=== PATIENT | male | born 1975 | race Caucasian/White ===

== ENCOUNTER 2019-11-20 12:11 | Inpatient (IN) | payer MEDICAID ==
[2019-11-20] VITALS (11 sets, daily range): BP systolic 95–155; BP diastolic 52–110
[~2019-11-20] VITALS: Ht 188 cm; Wt 174.0 kg
--- NOTE | 2019-11-20 12:20 | NUR ---
0836: took Nurse:Nurse from HELEN Lott [place] r/t pending pt transfer for nephrology issues. pt arrived [place] via ems 2150 11/07/2019 c/o increased generalized weakness and diarrhea x24/hrs. Labs revealed potassium of 7.0 tx with kayexalate w/ retest @ 5.7. Pt morbidly obese @ 200kg. FC was attempted, but unsuccessful. ETOH consumption last @ 2129 just prior to ems arrival (typical consumption 12 drinks/daily; no ETOH w/d protocol evoked. No urine output while @ [facility]; recieved IV fluids. HX: HTN, morbid obesity, etoh abuse
[2019-11-20 13:01] LABS: BASOPHILS # (AUTO) 0.1 X10'3 (0-0.2); BASOPHILS % (AUTO) 0.6 % (0-1); EOSINOPHILS % (AUTO) 0.2 % (0-6); HEMOGLOBIN 8.5 g/dl (14.0-17.9); LYMPHOCYTES % (AUTO) 11.5 % (21-51); MEAN CORPUSCULAR HEMOGLOBIN 34.1 PG (27.0-31.0); MEAN CORPUSCULAR HGB CONC 32.8 g/dL (33.0-36.5); MEAN CORPUSCULAR VOLUME 103.9 FL (78-98); MEAN PLATELET VOLUME 8.5 FL (7.4-10.4); MONOCYTES # (AUTO) 0.5 X10'3 (0-0.9); MONOCYTES % (AUTO) 5.4 % (2-12); NEUTROPHILS # (AUTO) 7.1 X10'3 (1.8-7.7); NEUTROPHILS % (AUTO) 82.3 % (42-75); PLATELET COUNT 129 X10'3 (140-440); RED CELL DISTRIBUTION WIDTH 14.8 % (11.5-14.5); WHITE BLOOD COUNT 8.7 X10'3 (4.5-11.0)
[2019-11-20 13:12] LABS: PARTIAL THROMBOPLASTIN TIME 30 SECONDS (22-32)
[2019-11-20 13:21] LABS: ALANINE AMINOTRANSFERASE 68 U/L (12-78); ALBUMIN/GLOBULIN RATIO 0.6 (1.1-1.5); ALKALINE PHOSPHATASE 475 IU/L (46-116); ANION GAP 17 (8-16); ASPARTATE AMINO TRANSFERASE 126 U/L (10-37); BILIRUBIN,TOTAL 1.5 MG/DL (0.1-1.0); BLOOD UREA NITROGEN 81 MG/DL (7-18); BUN/CREATININE RATIO 11.3 (5.4-32.0); CALCIUM 6.9 MG/DL (8.5-10.1); CHLORIDE 95 MMOL/L (99-107); CREATININE 7.17 MG/DL (0.60-1.10); GLUCOSE 105 MG/DL (70-104); SODIUM 128 MMOL/L (135-145); TOTAL CARBON DIOXIDE 16.5 MMOL/L (24-32); TOTAL PROTEIN 8.1 G/DL (6.4-8.2); eGFR 8 ML/MIN
[2019-11-20 13:24] LABS: POTASSIUM 6.5 MMOL/L (3.5-5.1)
[2019-11-20] MEDS ORDERED: normal saline 1000ML IV soln IVB ONE (13:30)
[2019-11-20] MEDS ORDERED: insulin regular, human U-100 3ml vial - multi-dose IV ONE (13:35)
[2019-11-20] MEDS ORDERED: dextrose 50%-water 50ml dispensing syringe IV ONE (13:35)
--- NOTE | 2019-11-20 14:05 | NUR ---
attempted noel placement with coude. meatal opening located and noel introduced into the ureter. unable to pass coude into the bladder. Unable to get accurate bladder scan due to pt's swelling and obesity. Large amount of edema to scrotum.
[2019-11-20] MEDS ORDERED: ondansetron/PF 4mg/2ml inj IV PRN (14:20)
[2019-11-20] MEDS ORDERED: normal saline 1000ml 1,000 ML IV SCH (14:20)
[2019-11-20] MEDS ORDERED: HYDROcodone/acetaminophen 5mg/325mg tablet PO PRN (14:20)
[2019-11-20] MEDS ORDERED: mag hydrox/Alum hydrox/simeth 30ml oral suspension PO PRN (14:20)
[2019-11-20] MEDS ORDERED: HYDROcodone/acetaminophen 10/325mg tab PO PRN (14:20)
[2019-11-20] MEDS ORDERED: magnesium hydroxide 30ml (MOM) UD suspension PO PRN (14:20)
[2019-11-20] MEDS ORDERED: acetaminophen 325mg tablet PO PRN ×2 (14:20)
[2019-11-20] MEDS ORDERED: morphine 2 MG/ML inj. syringe IV PRN ×2 (14:20)
[2019-11-20] MEDS ORDERED: sodium polystyrene sulfonate 15gm/60ml oral suspension PO ONE (14:30)
[2019-11-20] MEDS ORDERED: CHOL500050 PO (14:37)
[2019-11-20] MEDS ORDERED: BENA20TA82 PO (14:37)
[2019-11-20] MEDS ORDERED: METO-384 PO (14:37)
[2019-11-20] MEDS ORDERED: GABA-534 PO ×2 (14:37)
[2019-11-20] MEDS ORDERED: SERT100T10 PO (14:37)
[2019-11-20] MEDS ORDERED: TRAZ-251 PO (14:37)
[2019-11-20] MEDS ORDERED: OMEP40CA13 PO (14:37)
[2019-11-20] MEDS ORDERED: CYCL-1 PO (14:37)
[2019-11-20 15:14] LABS: MAGNESIUM 1.7 MG/DL (1.5-2.4); PHOSPHORUS 8.8 MG/DL (2.3-4.5)
[2019-11-20] MEDS ORDERED: albuterol 2.5 MG/3 ML nebule CONTNEB PRN (15:15)
[2019-11-20] MEDS ORDERED: sodium bicarbonate (8.4%) 1 mEq/ml syringe IV ONE (15:15)
[2019-11-20] MEDS ORDERED: heparin 1,000unit/ml 10ml vial 10 ML IV ONE (16:39)
[2019-11-20] MEDS ORDERED: normal saline 1000ml 250 ML IV PRN (16:39)
[2019-11-20] MEDS ORDERED: epoetin 20,000 units/ml inj IV ONE (16:40)
[2019-11-20] MEDS ORDERED: heparin 1,000 units/ml 10ml inj HE ONE ×2 (16:45)
[2019-11-20] MEDS ORDERED: midazolam 2 mg/2 ml injection ONE ×2 (16:57→16:58)
[2019-11-20] MEDS ORDERED: heparin 1,000unit/ml 10ml vial 10 ML ONE (16:57)
[2019-11-20] MEDS ORDERED: LIDOcaine 1%/PF 5ML 10 MG/ML VIAL ONE (16:57)
[2019-11-20] MEDS ORDERED: fentaNYL/PF 50MCG/1 ML 2ML syringe ONE ×2 (16:57→16:58)
[2019-11-20] MEDS ORDERED: naloxone 0.4 mg/ml inj ONE (17:14)
[2019-11-20] MEDS ORDERED: flumazenil 0.1 mg/ml inj. IV ONE (17:14)
--- NOTE | 2019-11-20 17:14 | NUR ---
Pt arrived from ED. Report received from HELEN Antoine.
[2019-11-20] MEDS ORDERED: ipratropium/albuterol 3ml nebule NEB PRN (17:35)
[2019-11-20] MEDS ORDERED: LORazepam 2 mg/ml vial IV PRN ×2 (19:50→22:45)
[2019-11-20] MEDS: ipratropium/albuterol 3ml nebule NEB SCH (20:00)
[2019-11-20] MEDS ORDERED: heparin, porcine 5000 units/ml vial SQ SCH (20:00)
[2019-11-20] MEDS ORDERED: chlordiazePOXIDE 25mg capsule PO PRN (20:15)
[2019-11-20] MEDS ORDERED: LORazepam 2 mg/ml vial IV ONE (22:40)
[2019-11-20] MEDS ORDERED: dextrose ORAL solution 15 GM/59 ML bottle PO PRN ×2 (22:45)
[2019-11-20] MEDS ORDERED: glucagon, human recombinant 1mg kit SUBCUT PRN (22:45)
[2019-11-20] MEDS ORDERED: thiamine inj. 100 MG in normal saline 100ml IV soln 100 ML IV ONE (22:45)
[2019-11-20] MEDS ORDERED: dextrose 50%-water 50ml dispensing syringe IV PRN (22:45)
[2019-11-20] MEDS ORDERED: albumin (human) 25% 100 ML IV solution IV ONE (23:40)
[2019-11-21] VITALS (23 sets, daily range): BP systolic 77–120; BP diastolic 20–67
[2019-11-21 00:36] LABS: ABG BASE EXCESS -7.2 mmol/L (-2.0-2.0); ABG HCO3 19.3 mmol/L (22.0-26.0); ABG OXYGEN SATURATION 94.2 % (94-97); ABG PCO2 (T) 41.3 mmHg (35.0-48.0); ABG PO2 (T) 79.3 mmHg (75.0-100.0); ALLEN'S TEST POSITIVE; FCOHb 1.1 % (0.0-3.9); FMetHb 0.1 % (0.0-1.5); FO2Hb 93.1 % (94-97); PATIENT TEMPERATURE 36.1; TOTAL HEMOGLOBIN 8.4 G/dl (14.0-18.0)
[2019-11-21] MEDS: ipratropium/albuterol 3ml nebule NEB SCH ×4 (03:19→20:12)
[2019-11-21 05:25] LABS: BASOPHILS % (AUTO) 0.6 % (0-1); EOSINOPHILS % (AUTO) 0.2 % (0-6); HEMATOCRIT 24.1 % (42.0-52.0); HEMOGLOBIN 7.9 g/dl (14.0-17.9); LYMPHOCYTES # (AUTO) 0.6 X10'3 (1.1-4.8); LYMPHOCYTES % (AUTO) 9.8 % (21-51); MEAN CORPUSCULAR HEMOGLOBIN 34.3 PG (27.0-31.0); MEAN CORPUSCULAR HGB CONC 32.9 g/dL (33.0-36.5); MEAN CORPUSCULAR VOLUME 104.4 FL (78-98); MEAN PLATELET VOLUME 8.3 FL (7.4-10.4); MONOCYTES # (AUTO) 0.2 X10'3 (0-0.9); MONOCYTES % (AUTO) 3.7 % (2-12); NEUTROPHILS # (AUTO) 5.4 X10'3 (1.8-7.7); NEUTROPHILS % (AUTO) 85.7 % (42-75); PLATELET COUNT 113 X10'3 (140-440); RED BLOOD COUNT 2.31 X10'6 (4.70-6.10); RED CELL DISTRIBUTION WIDTH 14.8 % (11.5-14.5); WHITE BLOOD COUNT 6.3 X10'3 (4.5-11.0)
[2019-11-21 05:32] LABS: ALANINE AMINOTRANSFERASE 66 U/L (12-78); ALBUMIN 3.1 G/DL (3.4-5.0); ALBUMIN/GLOBULIN RATIO 0.6 (1.1-1.5); ALKALINE PHOSPHATASE 423 IU/L (46-116); AMYLASE 54 U/L (25-115); ANION GAP 18 (8-16); ASPARTATE AMINO TRANSFERASE 121 U/L (10-37); BILIRUBIN,TOTAL 1.6 MG/DL (0.1-1.0); BLOOD UREA NITROGEN 70 MG/DL (7-18); BUN/CREATININE RATIO 10.4 (5.4-32.0); CALCIUM 7.1 MG/DL (8.5-10.1); CHLORIDE 95 MMOL/L (99-107); CREATININE 6.73 MG/DL (0.60-1.10); GLUCOSE 105 MG/DL (70-104); LIPASE 269 U/L (73-393); MAGNESIUM 1.7 MG/DL (1.5-2.4); PHOSPHORUS 8.6 MG/DL (2.3-4.5); POTASSIUM 4.6 MMOL/L (3.5-5.1); SODIUM 132 MMOL/L (135-145); TOTAL CARBON DIOXIDE 19.4 MMOL/L (24-32); TOTAL PROTEIN 8.1 G/DL (6.4-8.2); eGFR 9 ML/MIN
--- NOTE | 2019-11-21 06:29 | NUR ---
report given to Palmer CERVANTES, transfer of care @ 8127.
[2019-11-21] MEDS: dextrose 50%-water 50ml dispensing syringe IV PRN ×2 (08:26→21:33)
--- NOTE | 2019-11-21 09:08 | NUR ---
Decreased BP 70's to 90's/30-40. Multiple areas attempted for BP doppler BP reveals pretty much same BP.
[2019-11-21] MEDS ORDERED: normal saline 1000ml 250 ML IV PRN (09:37)
[2019-11-21] MEDS ORDERED: heparin 1,000unit/ml 10ml vial 10 ML IV ONE (09:37)
[2019-11-21] MEDS ORDERED: epoetin 20,000 units/ml inj IV ONE (09:40)
[2019-11-21] MEDS ORDERED: heparin 1,000 units/ml 10ml inj HE ONE ×2 (09:45)
[2019-11-21] MEDS: folic acid inj. 2 MG, thiamine inj. 100 MG, MVI, adult No.4 with vit. K 10 ML in dextro... IV SCH ×4 (09:49)
[2019-11-21] MEDS ORDERED: normal saline 1000ml 1,000 ML IV ONE ×2 (10:00→17:00)
[2019-11-21] MEDS: chlordiazePOXIDE 25mg capsule PO SCH (17:21)
[2019-11-21] MEDS: LORazepam 2 mg/ml vial IV PRN (20:23)
--- NOTE | 2019-11-21 20:39 | NUR ---
pt having difficulty staying focused keeps pulling off oxygen and bipap wants to wait to eat. will attempt later.
[2019-11-22] VITALS (27 sets, daily range): BP systolic 72–132; BP diastolic 30–59
[2019-11-22] MEDS: chlordiazePOXIDE 25mg capsule PO SCH ×3 (00:11→16:00)
[2019-11-22] MEDS ORDERED: normal saline 500ml IV soln 500 ML IV ONE (01:50)
[2019-11-22] MEDS: dextrose 50%-water 50ml dispensing syringe IV PRN (01:53)
[2019-11-22] MEDS: ipratropium/albuterol 3ml nebule NEB SCH ×4 (03:30→21:08)
[2019-11-22 05:05] LABS: BASOPHILS % (AUTO) 0.3 % (0-1); EOSINOPHILS % (AUTO) 0.1 % (0-6); LYMPHOCYTES # (AUTO) 1.2 X10'3 (1.1-4.8); LYMPHOCYTES % (AUTO) 8.4 % (21-51); MEAN CORPUSCULAR HEMOGLOBIN 33.8 PG (27.0-31.0); MEAN CORPUSCULAR HGB CONC 31.9 g/dL (33.0-36.5); MEAN PLATELET VOLUME 8.9 FL (7.4-10.4); MONOCYTES # (AUTO) 1.1 X10'3 (0-0.9); MONOCYTES % (AUTO) 7.4 % (2-12); NEUTROPHILS % (AUTO) 83.8 % (42-75); PLATELET COUNT 100 X10'3 (140-440); RED BLOOD COUNT 2.36 X10'6 (4.70-6.10); RED CELL DISTRIBUTION WIDTH 15.1 % (11.5-14.5); WHITE BLOOD COUNT 14.3 X10'3 (4.5-11.0)
[2019-11-22 05:33] LABS: ALANINE AMINOTRANSFERASE 81 U/L (12-78); ALBUMIN 2.7 G/DL (3.4-5.0); ALBUMIN/GLOBULIN RATIO 0.6 (1.1-1.5); ALKALINE PHOSPHATASE 338 IU/L (46-116); AMYLASE 34 U/L (25-115); ANION GAP 18 (8-16); ASPARTATE AMINO TRANSFERASE 215 U/L (10-37); BILIRUBIN,TOTAL 2.7 MG/DL (0.1-1.0); BLOOD UREA NITROGEN 59 MG/DL (7-18); BUN/CREATININE RATIO 8.6 (5.4-32.0); CALCIUM 6.5 MG/DL (8.5-10.1); CHLORIDE 98 MMOL/L (99-107); GLUCOSE 85 MG/DL (70-104); LIPASE < 50 U/L (73-393); MAGNESIUM 1.6 MG/DL (1.5-2.4); POTASSIUM 5.1 MMOL/L (3.5-5.1); SODIUM 134 MMOL/L (135-145); TOTAL CARBON DIOXIDE 18.1 MMOL/L (24-32); TOTAL PROTEIN 7.4 G/DL (6.4-8.2); eGFR 9 ML/MIN
[2019-11-22 05:38] LABS: PHOSPHORUS 9.5 MG/DL (2.3-4.5)
[2019-11-22 06:13] LABS: CLARITY,URINE CLOUDY (Clear); COLOR,URINE BROWN (Yellow); UA COLLECTION TYPE NON-SPECIFIED
[2019-11-22 06:20] LABS: BACTERIA,URINE 4+ /HPF (Neg); RBC,URINE TNTC /HPF (0-2)
[2019-11-22 06:21] LABS: SQUAMOUS EPITHELIAL CELL,UR FEW /LPF (FEW); WBC,URINE 50-100 /HPF (0-4)
--- NOTE | 2019-11-22 06:21 | NUR ---
Change of shift report given and care assumed by Amy CERVANTES
[2019-11-22] MEDS: LORazepam 2 mg/ml vial IV PRN ×2 (07:03→14:49)
[2019-11-22 07:18] LABS: TOTAL PROTEIN,URINE RANDOM 1930.1 MG/DL
[2019-11-22 07:32] LABS: UA EOSINOPHILS NO EOS /HPF
[2019-11-22] MEDS: folic acid inj. 2 MG, thiamine inj. 100 MG, MVI, adult No.4 with vit. K 10 ML in dextro... IV SCH ×4 (08:30)
[2019-11-22 11:22] LABS: HBSAG SCREEN Negative (Negative); HEPATITIS C ANTIBODY <0.1 s/co ratio (0.0-0.9)
--- NOTE | 2019-11-22 12:50 | NUR ---
wound care consult placed for bariatric bed. fuel technician called and stated the company who has the beds are currently out of beds but they will let us know when they have one available.
--- NOTE | 2019-11-22 15:41 | NUR ---
PICC LINE INFORMATION: REF: [id number] LOT: [id number] EXP: 08/06/2020 CONFIRMED TIP PLACEMENT WITH CHEST XRAY DUE TO PT HAVING SINUS TACH AFTER PICC LINE PLACEMENT. 3CG SHOWS PERFECT PLACEMENT. SPOKE WITH IR PHYSICIAN DR MOSELEY WHO STATED ITS DISTAL SVC. YELITZA CERVANTES NOTIFIED OF CORRECT PICC PLACEMENT PER CHEST XRAY
--- NOTE | 2019-11-22 16:57 | NUR ---
pts heart rate in the 110's-120's while calm and sleeping. Dr. Castaneda aware and stated it's expected for someone like this pt who is detoxing and who also has night terrors.
--- NOTE | 2019-11-22 18:15 | NUR ---
Patient in room ICU 2044. I have received report from Amy CERVANTES and had the opportunity to ask questions and assume patient care. Patient asleep and on Bi-pap at 30% FIO2. BP has been extremely low and patient is not having any urine output - Dr. Matias has been made aware. Will continue to monitor.
[2019-11-23] VITALS (23 sets, daily range): BP systolic 75–128; BP diastolic 32–84
--- NOTE | 2019-11-23 00:32 | NUR ---
CALLED DR. DIAZ Patient's BP is continuing to decline. New orders for Albumin 200cc of 25%.
[2019-11-23] MEDS ORDERED: albumin (human) 25% 100 ML IV solution IV ONE (00:35)
[2019-11-23] MEDS: ipratropium/albuterol 3ml nebule NEB SCH ×4 (03:08→21:45)
[2019-11-23] MEDS ORDERED: LORazepam 2 mg/ml vial IV ONE (04:15)
[2019-11-23 06:04] LABS: BASOPHILS % (AUTO) 0.3 % (0-1); EOSINOPHILS # (AUTO) 0.1 X10'3 (0-0.9); HEMOGLOBIN 7.8 g/dl (14.0-17.9); NEUTROPHILS # (AUTO) 8.5 X10'3 (1.8-7.7); RED CELL DISTRIBUTION WIDTH 15.3 % (11.5-14.5)
[2019-11-23 06:08] LABS: EOSINOPHILS % (AUTO) 0.5 % (0-6); HEMATOCRIT 23.5 % (42.0-52.0); LYMPHOCYTES # (AUTO) 1.4 X10'3 (1.1-4.8); LYMPHOCYTES % (AUTO) 13.6 % (21-51); MEAN CORPUSCULAR HEMOGLOBIN 35.1 PG (27.0-31.0); MEAN CORPUSCULAR VOLUME 106.2 FL (78-98); MEAN PLATELET VOLUME 8.8 FL (7.4-10.4); MONOCYTES # (AUTO) 0.4 X10'3 (0-0.9); NEUTROPHILS % (AUTO) 81.6 % (42-75); PLATELET COUNT 101 X10'3 (140-440); RED BLOOD COUNT 2.22 X10'6 (4.70-6.10); WHITE BLOOD COUNT 10.4 X10'3 (4.5-11.0)
--- NOTE | 2019-11-23 06:35 | NUR ---
Problems reprioritized. Patient report given, questions answered & plan of care reviewed with Palmer CERVANTES.
[2019-11-23 06:41] LABS: ALANINE AMINOTRANSFERASE 89 U/L (12-78); ALBUMIN 2.9 G/DL (3.4-5.0); ALBUMIN/GLOBULIN RATIO 0.6 (1.1-1.5); ALKALINE PHOSPHATASE 308 IU/L (46-116); AMYLASE 31 U/L (25-115); ANION GAP 18 (8-16); ASPARTATE AMINO TRANSFERASE 194 U/L (10-37); BILIRUBIN,TOTAL 2.7 MG/DL (0.1-1.0); BLOOD UREA NITROGEN 76 MG/DL (7-18); BUN/CREATININE RATIO 9.6 (5.4-32.0); CALCIUM 6.2 MG/DL (8.5-10.1); CHLORIDE 96 MMOL/L (99-107); CREATININE 7.89 MG/DL (0.60-1.10); GLUCOSE 100 MG/DL (70-104); LIPASE 100 U/L (73-393); MAGNESIUM 1.8 MG/DL (1.5-2.4); POTASSIUM 4.4 MMOL/L (3.5-5.1); SODIUM 134 MMOL/L (135-145); TOTAL CARBON DIOXIDE 20.5 MMOL/L (24-32); TOTAL PROTEIN 7.4 G/DL (6.4-8.2); eGFR 8 ML/MIN
[2019-11-23 06:44] LABS: PHOSPHORUS 10.1 MG/DL (2.3-4.5)
[2019-11-23 07:08] LABS: ANISOCYTOSIS 1+; NUCLEATED RED BLOOD CELLS 3 /100WBC (0-0); PLATELET ESTIMATE DECREASED; POLYCHROMASIA FEW; TOTAL CELLS COUNTED 100
[2019-11-23] MEDS: chlordiazePOXIDE 25mg capsule PO SCH ×4 (07:26→23:36)
[2019-11-23] MEDS: folic acid inj. 2 MG, thiamine inj. 100 MG, MVI, adult No.4 with vit. K 10 ML in dextro... IV SCH ×4 (07:29)
[2019-11-23] MEDS ORDERED: albumin (human) 25% 100ml IV 100 ML IV PRN (09:20)
[2019-11-23] MEDS ORDERED: heparin 1,000unit/ml 10ml vial 10 ML IV ONE (09:20)
[2019-11-23] MEDS ORDERED: heparin 1,000 units/ml 10ml inj IV ONE (09:20)
[2019-11-23] MEDS ORDERED: epoetin 20,000 units/ml inj IV ONE (09:20)
[2019-11-23] MEDS ORDERED: midodrine 5mg tablet PO ONE (09:25)
[2019-11-23] MEDS ORDERED: heparin 1,000 units/ml 10ml inj HE ONE ×2 (09:25)
[2019-11-23] MEDS: fludrocortisone acetate 0.1mg tablet PO SCH (09:53)
[2019-11-23] MEDS: sevelamer carbonate 800mg tablet PO SCH ×2 (12:30→19:06)
[2019-11-23] MEDS: gabapentin 400mg capsule PO SCH (12:36)
[2019-11-23] MEDS: nystatin 15 GM powder TP SCH ×2 (12:47→21:07)
--- NOTE | 2019-11-23 12:50 | NUR ---
I have reviewed and agree with all medications administered and interventions performed by [facility] Tobin Black Addendum: 11/23/19 at 1250 by Charleen Ash RT Amended: Links added.
[2019-11-23] MEDS: midodrine 5mg tablet PO SCH ×2 (17:07→23:36)
--- NOTE | 2019-11-23 18:20 | NUR ---
Problems reprioritized. Patient report given, questions answered & plan of care reviewed with MARTHA CERVANTES.
--- NOTE | 2019-11-23 18:26 | NUR ---
Patient in room ICU 2044. I have received report from Palmer CERVANTES and had the opportunity to ask questions and assume patient care. Patient resting but feeling anxious about getting home. Visited with him and helped ease his anxiety. VS stable now, will continue to monitor.
--- NOTE | 2019-11-23 19:00 | NUR ---
Nursing staff has been trying to contact [facility] for a bariatric bed. They claim there isn't a bed available in [facility]. Will continue to call daily until a bed becomes available.
[2019-11-23] MEDS: LORazepam 1 MG tablet PO PRN (21:03)
[2019-11-24] VITALS (23 sets, daily range): BP systolic 82–133; BP diastolic 42–67
[2019-11-24 02:46] LABS: EOSINOPHILS # (AUTO) 0.1 X10'3 (0-0.9); MONOCYTES # (AUTO) 0.5 X10'3 (0-0.9)
[2019-11-24 02:48] LABS: BASOPHILS % (AUTO) 0.2 % (0-1); HEMATOCRIT 24.2 % (42.0-52.0); LYMPHOCYTES # (AUTO) 1.7 X10'3 (1.1-4.8); LYMPHOCYTES % (AUTO) 15.4 % (21-51); MEAN CORPUSCULAR HEMOGLOBIN 34.6 PG (27.0-31.0); MONOCYTES % (AUTO) 4.5 % (2-12); NEUTROPHILS # (AUTO) 8.6 X10'3 (1.8-7.7); NEUTROPHILS % (AUTO) 78.9 % (42-75); PLATELET COUNT 113 X10'3 (140-440); RED BLOOD COUNT 2.31 X10'6 (4.70-6.10); RED CELL DISTRIBUTION WIDTH 15.1 % (11.5-14.5); WHITE BLOOD COUNT 10.9 X10'3 (4.5-11.0)
[2019-11-24 02:57] LABS: ALANINE AMINOTRANSFERASE 94 U/L (12-78); ALBUMIN 2.7 G/DL (3.4-5.0); ALBUMIN/GLOBULIN RATIO 0.6 (1.1-1.5); ALKALINE PHOSPHATASE 366 IU/L (46-116); AMYLASE 84 U/L (25-115); ANION GAP 12 (8-16); ASPARTATE AMINO TRANSFERASE 194 U/L (10-37); BILIRUBIN,TOTAL 2.3 MG/DL (0.1-1.0); BLOOD UREA NITROGEN 50 MG/DL (7-18); BUN/CREATININE RATIO 8.8 (5.4-32.0); CHLORIDE 98 MMOL/L (99-107); CREATININE 5.65 MG/DL (0.60-1.10); GLUCOSE 101 MG/DL (70-104); LIPASE 399 U/L (73-393); MAGNESIUM 1.9 MG/DL (1.5-2.4); PHOSPHORUS 6.3 MG/DL (2.3-4.5); POTASSIUM 4.1 MMOL/L (3.5-5.1); SODIUM 135 MMOL/L (135-145); TOTAL CARBON DIOXIDE 25.1 MMOL/L (24-32); TOTAL PROTEIN 7.3 G/DL (6.4-8.2); eGFR 11 ML/MIN
[2019-11-24] MEDS: ipratropium/albuterol 3ml nebule NEB SCH ×4 (03:49→20:07)
[2019-11-24 05:27] LABS: NUCLEATED RED BLOOD CELLS 2 /100WBC (0-0); TOTAL CELLS COUNTED 100
[2019-11-24 05:30] LABS: PLATELET ESTIMATE DECREASED
--- NOTE | 2019-11-24 06:32 | NUR ---
Problems reprioritized. Patient report given, questions answered & plan of care reviewed with Amy CERVANTES.
[2019-11-24] MEDS: chlordiazePOXIDE 25mg capsule PO SCH ×2 (08:00→16:00)
[2019-11-24] MEDS: sevelamer carbonate 800mg tablet PO SCH ×3 (08:30→17:30)
[2019-11-24] MEDS: fludrocortisone acetate 0.1mg tablet PO SCH (08:30)
[2019-11-24] MEDS: gabapentin 400mg capsule PO SCH (08:31)
[2019-11-24] MEDS: sertraline 50mg tablet PO SCH (08:31)
[2019-11-24] MEDS: midodrine 5mg tablet PO SCH ×2 (08:31→21:29)
[2019-11-24] MEDS: vitamin D (cholecalciferol) 1,000 unit tablet PO SCH (08:32)
[2019-11-24] MEDS: nystatin 15 GM powder TP SCH ×3 (08:32→21:31)
[2019-11-24] MEDS: folic acid inj. 2 MG, thiamine inj. 100 MG, MVI, adult No.4 with vit. K 10 ML in dextro... IV SCH ×4 (08:40)
--- NOTE | 2019-11-24 10:11 | NUR ---
Leila held this AM. Pt refusing multiple times to eat something after RN gave multiple prompts. Will order and administer [place] per Dr. Castaneda d/t pt c/o back and hip pain.
[2019-11-24] MEDS: HYDROcodone/acetaminophen 10/325mg tab PO PRN (10:32)
--- NOTE | 2019-11-24 12:43 | NUR ---
pt calm and cooperative throughout the AM. bilateral wrist restraints removed earlier this AM. Then around lunch time RN noticed pt pulling at his dialysis catheter and pt had pulled off EKG leads. Pt also pulled out PICC line. pt reconnected to monitor, cleaned up and straightened in bed, bilateral wrist restraints reapplied. pt sleeping intermittently. will attempt to get another IV line.
[2019-11-24] MEDS ORDERED: gabapentin 300mg capsule PO PRN ×2 (14:45→15:37)
[2019-11-24] MEDS ORDERED: gabapentin 100mg capsule PO PRN (14:52)
[2019-11-24] MEDS: MESSAGE TO NURSING PO SCH (16:51)
--- NOTE | 2019-11-24 18:15 | NUR ---
Patient in room ICU 2044. I have received report from Amy CERVANTES and had the opportunity to ask questions and assume patient care. Patient sleeping, VS stable, will continue to monitor.
[2019-11-24] MEDS ORDERED: thiamine inj. 100 MG, MVI, adult No.4 with vit. K 10 ML in dextrose 5% water 500ml 500 ML IV SCH ×3 (20:27)
--- NOTE | 2019-11-24 21:20 | NUR ---
CALLED DR. DIAZ Pt.'s heart rate has gone into a-flutter, rate 105-130. BP is still low, he was sleeping heavily and missed his 1600 dose of midodrine. New orders for sub q heparin 5000 Q12h.
[2019-11-24] MEDS ORDERED: LORazepam 2 mg/ml vial IV PRN (22:45)
--- NOTE | 2019-11-24 22:52 | NUR ---
CALLED DR. DIAZ Patient is still in A-flutter. BP has come up, last 4 BP's have had a MAP of 71-83. New order for 1x dose of metoprolol 5mg IV.
[2019-11-24] MEDS ORDERED: metoprolol tartrate 1mg/ml inj IV ONE (22:55)
[2019-11-25] VITALS (26 sets, daily range): BP systolic 89–127; BP diastolic 40–100
[2019-11-25] MEDS: ipratropium/albuterol 3ml nebule NEB SCH ×4 (02:52→20:34)
[2019-11-25 05:29] LABS: ALANINE AMINOTRANSFERASE 91 U/L (12-78); ALBUMIN 2.6 G/DL (3.4-5.0); ALBUMIN/GLOBULIN RATIO 0.5 (1.1-1.5); ALKALINE PHOSPHATASE 417 IU/L (46-116); AMYLASE 190 U/L (25-115); ANION GAP 13 (8-16); ASPARTATE AMINO TRANSFERASE 164 U/L (10-37); BILIRUBIN,TOTAL 2.4 MG/DL (0.1-1.0); BLOOD UREA NITROGEN 68 MG/DL (7-18); BUN/CREATININE RATIO 9.9 (5.4-32.0); CALCIUM 7.3 MG/DL (8.5-10.1); CHLORIDE 96 MMOL/L (99-107); CREATININE 6.89 MG/DL (0.60-1.10); GLUCOSE 84 MG/DL (70-104); LIPASE 980 U/L (73-393); PHOSPHORUS 8.3 MG/DL (2.3-4.5); POTASSIUM 4.8 MMOL/L (3.5-5.1); SODIUM 133 MMOL/L (135-145); TOTAL CARBON DIOXIDE 24.1 MMOL/L (24-32); TOTAL PROTEIN 7.5 G/DL (6.4-8.2); eGFR 9 ML/MIN
[2019-11-25 06:13] LABS: WHITE BLOOD COUNT 11.8 X10'3 (4.5-11.0)
[2019-11-25 06:15] LABS: BASOPHILS # (AUTO) 0.1 X10'3 (0-0.2); BASOPHILS % (AUTO) 0.5 % (0-1); EOSINOPHILS # (AUTO) 0.1 X10'3 (0-0.9); EOSINOPHILS % (AUTO) 1.2 % (0-6); HEMATOCRIT 26.8 % (42.0-52.0); HEMOGLOBIN 8.7 g/dl (14.0-17.9); LYMPHOCYTES # (AUTO) 1.5 X10'3 (1.1-4.8); LYMPHOCYTES % (AUTO) 12.4 % (21-51); MEAN CORPUSCULAR HGB CONC 32.3 g/dL (33.0-36.5); MEAN CORPUSCULAR VOLUME 105.4 FL (78-98); MEAN PLATELET VOLUME 9.2 FL (7.4-10.4); MONOCYTES # (AUTO) 0.6 X10'3 (0-0.9); MONOCYTES % (AUTO) 5.2 % (2-12); NEUTROPHILS # (AUTO) 9.5 X10'3 (1.8-7.7); NEUTROPHILS % (AUTO) 80.7 % (42-75); PLATELET COUNT 102 X10'3 (140-440); RED BLOOD COUNT 2.55 X10'6 (4.70-6.10); RED CELL DISTRIBUTION WIDTH 15.7 % (11.5-14.5)
--- NOTE | 2019-11-25 06:24 | NUR ---
Problems reprioritized. Patient report given, questions answered & plan of care reviewed with Alice CERVANTES.
[2019-11-25 07:50] LABS: ANISOCYTOSIS 1+; HYPOCHROMASIA 1+; PLATELET ESTIMATE DECREASED; TOTAL CELLS COUNTED 100
[2019-11-25 07:51] LABS: TEAR DROP CELLS FEW
[2019-11-25] MEDS: fludrocortisone acetate 0.1mg tablet PO SCH (07:53)
[2019-11-25] MEDS: gabapentin 300mg capsule PO SCH (07:53)
[2019-11-25] MEDS: sevelamer carbonate 800mg tablet PO SCH ×3 (07:53→17:30)
[2019-11-25] MEDS: sertraline 50mg tablet PO SCH (07:53)
[2019-11-25] MEDS: chlordiazePOXIDE 25mg capsule PO SCH ×3 (07:53→16:00)
[2019-11-25] MEDS: nystatin 15 GM powder TP SCH ×3 (07:54→21:09)
[2019-11-25] MEDS: vitamin D (cholecalciferol) 1,000 unit tablet PO SCH (07:54)
[2019-11-25] MEDS: midodrine 5mg tablet PO SCH ×3 (07:54→16:25)
[2019-11-25] MEDS: heparin, porcine 5000 units/ml vial SQ SCH ×3 (07:55→21:11)
[2019-11-25] MEDS ORDERED: folic acid 1mg/0.2ml inj IV SCH (08:00)
--- NOTE | 2019-11-25 08:27 | NUR ---
Patient refused SVN tx @ this time. No Shortness of breath noted. PT WITH VERY LOW BLOOD SUGAR TRYING TO EAT BREAKFAST. RN AWARE BS CLEAR PT ON ra 93% Addendum: 11/25/19 at 0830 by Charleen Ash RT Amended: Links added.
[2019-11-25] MEDS ORDERED: diltiazem-D5W 125mg/125ml 125 ML IV SCH (09:00)
[2019-11-25] MEDS: diltiazem-NS 100mg/100ml 100 ML IV SCH ×2 (10:27→17:46)
[2019-11-25 12:14] LABS: CHOL/HDL RATIO 18.4 (0.00-4.99); CHOLESTEROL 166 MG/DL (0-200); HDL CHOLESTEROL 9 MG/DL (35-60); LDL CHOLESTEROL 111 MG/DL (50-100); TRIGLYCERIDES 143 MG/DL (20-135)
--- NOTE | 2019-11-25 12:41 | NUR ---
Yony Consult: Yony 12; skin intact. Pt admit w/ acute renal failure needing HD. Hx etoh and opiate abuse MCV 105.4 receiving IV thiamin/folic/MVI. AOx2 at this time and initially in restraints though now removed per EMR. PO 100% renal diet breakfast this AM up from 0% past 4 days not meeting needs; likely impacted by ALOC. LBM 11/22. Nepro TIDWM recommended for additional protein/kcal needs on HD; MD notified. RD d/w regarding lipid panel this admit since lipase/amylase increasing up from WNL initially and etoh hx. MD is agreeable and RN aware. Phos 8.3 receiving renvela. Will continue to monitor. Rec: 1. continue renal diet; encourage PO 2. Nepro TIDWM 3. routine bowel care 4. weekly wts 5. consider heart healthy diet addition if PO improves pending lipid panel results; etoh abuse hx w/ increasing lipase/amylase and morbid obesity Addendum: 11/25/19 at [address] Amended: Links added.
[2019-11-25] MEDS: NUT.TX.IMP.RENAL FXN,LAC-REDUC (Nepro) 237 ML VANILLA PO SCH ×2 (13:00→18:00)
[2019-11-25] MEDS: MESSAGE TO NURSING PO SCH (15:28)
--- NOTE | 2019-11-25 18:11 | NUR ---
Problems reprioritized. Patient report given, questions answered & plan of care reviewed with HELEN Chapman.
--- NOTE | 2019-11-25 18:11 | NUR ---
Patient in room ICU 2044. I have received report from Alice CERVANTES and had the opportunity to ask questions and assume patient care. Pt with transfer orders to telemetry unit. Pt is on Cardizem drip at 10mg/hr. Rhythm is atrial flutter 3-4:1. Awake & drowsy. TITO @ 3mm Speech is clear. Moves all extremities. Generalized edema is 3-4+. Dialysis cath to right upper chest. Ports ate capped & locked. Peripheral IV to right F/A #20G with cardizem drip infusing at 10mg/hr. Oriented to person, year and date of . Informed of transfer out of ICU. Refuses dinner tray at this time.
--- NOTE | 2019-11-25 18:40 | NUR ---
Problems reprioritized. Patient report given, questions answered & plan of care reviewed with Maya CERVANTES on 3rd floor. Pt is going to room 3023 telemetry.
--- NOTE | 2019-11-25 19:35 | NUR ---
Pt in route to room 3023. All belongings taken. Pt has clothing, a Leeann reader & primer charger. Stable for transport. Taken in bed. VS T 36.8 P 96 RR18 BP 100/54
[2019-11-26] VITALS (8 sets, daily range): BP systolic 94–114; BP diastolic 40–55
[2019-11-26] MEDS: chlordiazePOXIDE 25mg capsule PO SCH ×4 (00:06→23:48)
[2019-11-26] MEDS: midodrine 5mg tablet PO SCH ×4 (00:06→23:48)
[2019-11-26] MEDS: ipratropium/albuterol 3ml nebule NEB SCH ×4 (02:51→21:09)
[2019-11-26] MEDS: diltiazem 30mg tablet PO SCH ×3 (03:46→20:07)
--- NOTE | 2019-11-26 03:48 | NUR ---
Pt pulled out IV. orders from [facility] to switch cardizem to PO but he would like IV if possible. pt stated he wants to go home tomorrow. he thinks he is in [place] this time. Knows the president. Thinks he is here for anemia. reoriented pt. he reluctantly agreed to new IV.
--- NOTE | 2019-11-26 05:36 | NUR ---
pt taking off tele leads and trying to pull out TDC. MD Cobian aware. Stated to educate patient about why it is a bad idea for him to take it out. pt stated he is "just done" wants to leave and have a drink and a smoke. offered PO ativan, pt stated that it doesn't help.
--- NOTE | 2019-11-26 06:25 | NUR ---
report given to oncoming RNs. Shared that pt wants to go home and he wants to pull out the dialysis catheter. He stated he wants to call his family in a little while.
--- NOTE | 2019-11-26 06:41 | NUR ---
Patient in room PCU 3023. I have received report from HELEN Miner and had the opportunity to ask questions and assume patient care. Patient awake in bed and in no acute distress.
--- NOTE | 2019-11-26 06:44 | NUR ---
Patient in room PCU 3023. I have received report from Isidra CERVANTES and had the opportunity to ask questions and assume patient care. Patient was awake during report and no acute distress was noted.
[2019-11-26] MEDS: NUT.TX.IMP.RENAL FXN,LAC-REDUC (Nepro) 237 ML VANILLA PO SCH ×3 (08:00→18:00)
[2019-11-26] MEDS ORDERED: heparin 1,000unit/ml 10ml vial 10 ML IV ONE (08:41)
[2019-11-26] MEDS: gabapentin 300mg capsule PO SCH (08:44)
[2019-11-26] MEDS: thiamine 100mg tablet PO SCH (08:44)
[2019-11-26] MEDS: vitamin D (cholecalciferol) 1,000 unit tablet PO SCH (08:44)
[2019-11-26] MEDS ORDERED: heparin 1,000 units/ml 10ml inj HE ONE ×2 (08:45)
[2019-11-26] MEDS: nystatin 15 GM powder TP SCH ×3 (08:45→22:34)
[2019-11-26] MEDS ORDERED: albumin (human) 25% 100ml IV 100 ML IV PRN (08:45)
[2019-11-26] MEDS: folic acid 1mg tablet PO SCH (08:45)
[2019-11-26] MEDS ORDERED: epoetin 20,000 units/ml inj IV ONE (08:45)
[2019-11-26] MEDS: multivitamins, therapeutics tablet PO SCH (08:45)
[2019-11-26] MEDS: sertraline 50mg tablet PO SCH (08:45)
[2019-11-26] MEDS: heparin, porcine 5000 units/ml vial SQ SCH ×2 (08:46→20:00)
[2019-11-26] MEDS: sevelamer carbonate 800mg tablet PO SCH ×3 (08:46→18:00)
[2019-11-26] MEDS: HYDROcodone/acetaminophen 10/325mg tab PO PRN (09:11)
[2019-11-26] MEDS: LORazepam 1 MG tablet PO PRN (10:20)
[2019-11-26 11:15] LABS: HEMATOCRIT 25.5 % (42.0-52.0); HEMOGLOBIN 8.4 g/dl (14.0-17.9); MEAN CORPUSCULAR HEMOGLOBIN 34.2 PG (27.0-31.0); MEAN CORPUSCULAR VOLUME 103.6 FL (78-98); MEAN PLATELET VOLUME 9.3 FL (7.4-10.4); PLATELET COUNT 87 X10'3 (140-440); RED BLOOD COUNT 2.46 X10'6 (4.70-6.10); RED CELL DISTRIBUTION WIDTH 14.7 % (11.5-14.5)
[2019-11-26] MEDS: fludrocortisone acetate 0.1mg tablet PO SCH (12:48)
--- NOTE | 2019-11-26 14:50 | NUR ---
Dialysis finished at this time.
--- NOTE | 2019-11-26 15:12 | NUR ---
Sent social science professor a page regarding the patient's inquiring about becoming a POA.
[2019-11-26] MEDS: MESSAGE TO NURSING PO SCH (16:00)
--- NOTE | 2019-11-26 17:20 | NUR ---
[place] Medication Administration: For this medication-pass time frame, all medication were reviewed, dispensed, administered and documented per hospital policy by HELEN Villaseñor.
--- NOTE | 2019-11-26 17:20 | NUR ---
[place] documentation: I have reviewed and agree with all interventions, assessments performed and documented by HELEN Villaseñor.
--- NOTE | 2019-11-26 18:28 | NUR ---
Problems reprioritized. Patient report given, questions answered & plan of care reviewed with HELEN Gonzalez. Patient stable at transfer of care.
--- NOTE | 2019-11-26 18:31 | NUR ---
Patient in room PCU 3023H. I have received report from HELEN LEACH AND HELEN NUNEZ and had the opportunity to ask questions and assume patient care.
--- NOTE | 2019-11-26 21:45 | NUR ---
PATIENT DISLODGED RIGHT CHEST TDC. PRESSURE APPLIED FOR 10 MINUTES. VS OBTAINED AND STABLE. HR 103, B/P 99/48. CXR IN AM PER ALTON DIAZ.
[2019-11-27 02:46] VITALS: BP 119/57
[2019-11-27] MEDS: ipratropium/albuterol 3ml nebule NEB SCH ×4 (03:01→20:46)
--- NOTE | 2019-11-27 06:35 | NUR ---
Problems reprioritized. Patient report given, questions answered & plan of care reviewed with HELEN LEACH.
--- NOTE | 2019-11-27 06:49 | NUR ---
Patient in room PCU 3023. I have received report from HELEN Gonzalez and had the opportunity to ask questions and assume patient care. Patient asleep in bed and in no acute distress.
[2019-11-27 07:00] VITALS: BP 115/56
[2019-11-27 07:50] LABS: BASOPHILS % (AUTO) 0.5 % (0-1); EOSINOPHILS # (AUTO) 0.1 X10'3 (0-0.9); EOSINOPHILS % (AUTO) 0.8 % (0-6); HEMATOCRIT 26.1 % (42.0-52.0); HEMOGLOBIN 8.5 g/dl (14.0-17.9); LYMPHOCYTES % (AUTO) 10.4 % (21-51); MEAN CORPUSCULAR HEMOGLOBIN 33.8 PG (27.0-31.0); MEAN CORPUSCULAR HGB CONC 32.7 g/dL (33.0-36.5); MEAN CORPUSCULAR VOLUME 103.2 FL (78-98); MEAN PLATELET VOLUME 9.4 FL (7.4-10.4); MONOCYTES # (AUTO) 0.6 X10'3 (0-0.9); MONOCYTES % (AUTO) 6.5 % (2-12); NEUTROPHILS # (AUTO) 7.8 X10'3 (1.8-7.7); NEUTROPHILS % (AUTO) 81.8 % (42-75); PLATELET COUNT 83 X10'3 (140-440); RED BLOOD COUNT 2.53 X10'6 (4.70-6.10); RED CELL DISTRIBUTION WIDTH 15.1 % (11.5-14.5); WHITE BLOOD COUNT 9.5 X10'3 (4.5-11.0)
[2019-11-27] MEDS: NUT.TX.IMP.RENAL FXN,LAC-REDUC (Nepro) 237 ML VANILLA PO SCH ×3 (08:00→18:00)
[2019-11-27] MEDS: nystatin 15 GM powder TP SCH ×3 (08:00→20:04)
[2019-11-27] MEDS: multivitamins, therapeutics tablet PO SCH (08:00)
[2019-11-27] MEDS: folic acid 1mg tablet PO SCH (08:00)
[2019-11-27] MEDS: gabapentin 300mg capsule PO SCH (08:00)
[2019-11-27] MEDS: thiamine 100mg tablet PO SCH (08:00)
[2019-11-27] MEDS: diltiazem 30mg tablet PO SCH ×2 (08:00→20:03)
[2019-11-27] MEDS: sertraline 50mg tablet PO SCH (08:00)
[2019-11-27] MEDS: vitamin D (cholecalciferol) 1,000 unit tablet PO SCH (08:00)
[2019-11-27] MEDS: heparin, porcine 5000 units/ml vial SQ SCH ×2 (08:00→20:04)
[2019-11-27] MEDS: midodrine 5mg tablet PO SCH ×2 (08:00→16:39)
[2019-11-27] MEDS: chlordiazePOXIDE 25mg capsule PO SCH ×2 (08:00→16:39)
--- NOTE | 2019-11-27 08:00 | NUR ---
Patient refused kassy-care. Addendum: 11/27/19 at 1445 by Charleen Holt RN Amended: Links added.
[2019-11-27 08:07] LABS: ALANINE AMINOTRANSFERASE 63 U/L (12-78); ALBUMIN 2.3 G/DL (3.4-5.0); ALBUMIN/GLOBULIN RATIO 0.5 (1.1-1.5); ALKALINE PHOSPHATASE 399 IU/L (46-116); ANION GAP 13 (8-16); ASPARTATE AMINO TRANSFERASE 97 U/L (10-37); BILIRUBIN,TOTAL 3.1 MG/DL (0.1-1.0); BLOOD UREA NITROGEN 65 MG/DL (7-18); BUN/CREATININE RATIO 16.3 (5.4-32.0); CALCIUM 7.3 MG/DL (8.5-10.1); CHLORIDE 99 MMOL/L (99-107); CREATININE 3.99 MG/DL (0.60-1.10); GLUCOSE 87 MG/DL (70-104); MAGNESIUM 1.9 MG/DL (1.5-2.4); PHOSPHORUS 6.5 MG/DL (2.3-4.5); POTASSIUM 4.7 MMOL/L (3.5-5.1); SODIUM 139 MMOL/L (135-145); TOTAL CARBON DIOXIDE 26.8 MMOL/L (24-32); TOTAL PROTEIN 7.2 G/DL (6.4-8.2); eGFR 17 ML/MIN
--- NOTE | 2019-11-27 08:15 | NUR ---
Patient pulled TDC last night and is refusing TDC placement today. Called Dr. Matias to notify him of patient's decision for refusing TDC placement.
[2019-11-27 08:21] LABS: LARGE PLATELETS FEW; PLATELET ESTIMATE DECREASED
[2019-11-27 08:22] LABS: POLYCHROMASIA FEW
[2019-11-27] MEDS: fludrocortisone acetate 0.1mg tablet PO SCH (08:30)
[2019-11-27] MEDS: sevelamer carbonate 800mg tablet PO SCH ×3 (08:30→17:30)
[2019-11-27 11:00] VITALS: BP 138/68
[2019-11-27] MEDS: HYDROcodone/acetaminophen 10/325mg tab PO PRN ×2 (12:08→20:04)
--- NOTE | 2019-11-27 12:23 | NUR ---
Patient wanting TDC placed now. Called [facility] to let them know that the patient changed their mind and they will see what they can do today depending on their case load.
--- NOTE | 2019-11-27 12:25 | NUR ---
Called x-ray that patient is agreeable to x-ray being done.
--- NOTE | 2019-11-27 14:46 | NUR ---
Patient refusing kassy-care. Addendum: 11/27/19 at 1447 by Charleen Holt RN Amended: Links added.
--- NOTE | 2019-11-27 14:48 | NUR ---
Patient refusing turning. Addendum: 11/27/19 at 1458 by Charleen Holt RN Amended: Links added.
[2019-11-27 15:00] VITALS: BP 113/65
--- NOTE | 2019-11-27 15:00 | NUR ---
Called floor to get accurate weight on patient for TDC placement and was informed by Charge Nurse that Dr Matias advised to hold off on TDC placement and reassess tomorrow because patient was once again refusing. Case pushed to tomorrow
--- NOTE | 2019-11-27 15:30 | NUR ---
Patient refusing all forms of hygiene care. Addendum: 11/27/19 at 1531 by Charleen Holt RN Amended: Links added.
[2019-11-27] MEDS: MESSAGE TO NURSING PO SCH (16:00)
--- NOTE | 2019-11-27 17:21 | NUR ---
[place] Medication Administration: For this medication-pass time frame, all medication were reviewed, dispensed, administered and documented per hospital policy by HELEN Villaseñor.
--- NOTE | 2019-11-27 17:21 | NUR ---
[place] documentation: I have reviewed and agree with all interventions, assessments performed and documented by HELEN Villaseñor.
[2019-11-27 18:00] VITALS: BP 131/65
--- NOTE | 2019-11-27 18:26 | NUR ---
Problems reprioritized. Patient report given, questions answered & plan of care reviewed with Flavio RN. Patient stable at transfer of care.
--- NOTE | 2019-11-27 19:00 | NUR ---
Spoke with patient and asked if i could start a new IV. Because he has none, i informed him of the need to have IV access so that in emergency situations we can give medications. He also had Lasix ordered IV. Patient refused to have an IV placed. Will continue to ask throughout the night.
--- NOTE | 2019-11-27 19:12 | NUR ---
Patient in room PCU 3023. I have received report from Yaneth CERVANTES and had the opportunity to ask questions and assume patient care.
[2019-11-27] MEDS ORDERED: furosemide 40mg/4ml inj IV SCH (20:00)
[2019-11-27] MEDS: furosemide 40mg tablet PO SCH (20:04)
[2019-11-27 22:00] VITALS: BP 109/50
[2019-11-28] MEDS: midodrine 5mg tablet PO SCH ×3 (00:12→16:07)
[2019-11-28] MEDS: chlordiazePOXIDE 25mg capsule PO SCH ×3 (00:13→16:03)
[2019-11-28 02:00] VITALS: BP 133/53
[2019-11-28] MEDS: ipratropium/albuterol 3ml nebule NEB SCH ×4 (03:01→20:17)
--- NOTE | 2019-11-28 04:48 | NUR ---
I have replaced patients heart leads 5 times in the last 3 hours. I have spoken to the patient, about the need for telemetry monitoring. Patient stated that he was not taking them off on purpose, although i had witnessed him taking off one of the leads while i was still in the room. Will continue to persuade patient to be compliant with telemetry monitoring.
[2019-11-28 06:01] LABS: BASOPHILS % (AUTO) 0.2 % (0-1); EOSINOPHILS # (AUTO) 0.1 X10'3 (0-0.9); EOSINOPHILS % (AUTO) 0.7 % (0-6); LYMPHOCYTES # (AUTO) 1.2 X10'3 (1.1-4.8); LYMPHOCYTES % (AUTO) 11.2 % (21-51); MEAN CORPUSCULAR HEMOGLOBIN 34.1 PG (27.0-31.0); MEAN CORPUSCULAR HGB CONC 33.3 g/dL (33.0-36.5); MEAN CORPUSCULAR VOLUME 102.6 FL (78-98); MEAN PLATELET VOLUME 9.4 FL (7.4-10.4); MONOCYTES # (AUTO) 0.6 X10'3 (0-0.9); MONOCYTES % (AUTO) 5.4 % (2-12); NEUTROPHILS # (AUTO) 8.5 X10'3 (1.8-7.7); NEUTROPHILS % (AUTO) 82.5 % (42-75); PLATELET COUNT 89 X10'3 (140-440); RED BLOOD COUNT 2.63 X10'6 (4.70-6.10); RED CELL DISTRIBUTION WIDTH 14.9 % (11.5-14.5); WHITE BLOOD COUNT 10.4 X10'3 (4.5-11.0)
--- NOTE | 2019-11-28 06:15 | NUR ---
Problems reprioritized. Patient report given, questions answered & plan of care reviewed with Joaquin CERVANTES.
[2019-11-28 06:18] LABS: ALANINE AMINOTRANSFERASE 59 U/L (12-78); ALBUMIN 2.2 G/DL (3.4-5.0); ALBUMIN/GLOBULIN RATIO 0.4 (1.1-1.5); ALKALINE PHOSPHATASE 443 IU/L (46-116); ANION GAP 12 (8-16); ASPARTATE AMINO TRANSFERASE 101 U/L (10-37); BILIRUBIN,TOTAL 3.9 MG/DL (0.1-1.0); BLOOD UREA NITROGEN 64 MG/DL (7-18); BUN/CREATININE RATIO 22.9 (5.4-32.0); CALCIUM 7.6 MG/DL (8.5-10.1); CHLORIDE 100 MMOL/L (99-107); GLUCOSE 84 MG/DL (70-104); MAGNESIUM 1.6 MG/DL (1.5-2.4); PHOSPHORUS 5.8 MG/DL (2.3-4.5); POTASSIUM 4.6 MMOL/L (3.5-5.1); SODIUM 137 MMOL/L (135-145); TOTAL CARBON DIOXIDE 25.4 MMOL/L (24-32); TOTAL PROTEIN 7.4 G/DL (6.4-8.2); eGFR 25 ML/MIN
--- NOTE | 2019-11-28 06:41 | NUR ---
Patient in room PCU 3023. I have received report from Flavio CERVANTES and had the opportunity to ask questions and assume patient care.
[2019-11-28 07:00] VITALS: BP 116/63
[2019-11-28] MEDS: vitamin D (cholecalciferol) 1,000 unit tablet PO SCH (08:33)
[2019-11-28] MEDS: sevelamer carbonate 800mg tablet PO SCH ×3 (08:33→17:18)
[2019-11-28] MEDS: diltiazem 30mg tablet PO SCH ×3 (08:33→21:52)
[2019-11-28] MEDS: sertraline 50mg tablet PO SCH (08:33)
[2019-11-28] MEDS: folic acid 1mg tablet PO SCH (08:33)
[2019-11-28] MEDS: thiamine 100mg tablet PO SCH (08:34)
[2019-11-28] MEDS: nystatin 15 GM powder TP SCH ×3 (08:34→21:00)
[2019-11-28] MEDS: fludrocortisone acetate 0.1mg tablet PO SCH (08:34)
[2019-11-28] MEDS: multivitamins, therapeutics tablet PO SCH (08:34)
[2019-11-28] MEDS: gabapentin 300mg capsule PO SCH (08:34)
[2019-11-28] MEDS: furosemide 40mg tablet PO SCH ×2 (08:34→20:00)
[2019-11-28] MEDS: NUT.TX.IMP.RENAL FXN,LAC-REDUC (Nepro) 237 ML VANILLA PO SCH ×4 (08:46→19:00)
[2019-11-28] MEDS: heparin, porcine 5000 units/ml vial SQ SCH ×2 (09:01→20:00)
--- NOTE | 2019-11-28 09:07 | NUR ---
Patient has no IV access, has ripped out dialysis catheter and central line on previous shifts. Patient has pulled off tele leads several times, found the patient chewing on one of the leads. He is confused and unsure of what he is doing. Spoke to charge about sitter option, she said reorient the patient and have aids round frequently.
[2019-11-28] MEDS: HYDROcodone/acetaminophen 10/325mg tab PO PRN ×2 (10:20→17:07)
[2019-11-28 11:00] VITALS: BP 112/61
--- NOTE | 2019-11-28 13:26 | NUR ---
Patient does not qualify for total [facility] care bed due to being over 450 lbs limit, per [facility] rep, patient does not meet criteria.
--- NOTE | 2019-11-28 13:33 | NUR ---
Reassessment: Pt no longer on dialysis as he pulled out his TDC although acute renal failure resolving per MD notes. PO intake declined back down to 0% with refusals with the exception of 75-100% PO intake of three meals since admit. Pt also documented to be refusing all ONS. Pt not meeting nutrient needs at this time. Pt seen at bedside states he dislikes "all the food" and the ONS. RD encourage PO intake of meals and ONS, d/w pt that he must either consume meals or the ONS or both and informed pt that we should continue ONS at this time until his PO intake of meals improve, pt verbalized understanding. Pt provided with alternative renal menu to provide additional food options of which RD reviewed, pt unable to discuss food preferences at this time. RD contact information provided. LBM 11/22, documented as constipated and not receiving bowel care. Routine Colace BID just added to med list. Confusion and constipation likely impacting PO intake. Will continue to follow closely. Rec: 1. continue renal diet; Encourage PO intake; Consider diet liberalization to regular if poor PO intake persists 2. Nepro TIDWM 3. Continue routine Thiamine, Folic acid, and MVI given EtOH hx and elevated MCV 4. routine bowel care 5. Scaled weights per rx 6. consider diet change to heart healthy if PO improves Addendum: 11/28/19 at [address] Amended: Links added.
[2019-11-28 15:00] VITALS: BP 127/67
[2019-11-28] MEDS: MESSAGE TO NURSING PO SCH (16:00)
--- NOTE | 2019-11-28 17:08 | NUR ---
[place] 10/325 mg administered at 1707 was given at 1607, medication administration did not save.
[2019-11-28 18:00] VITALS: BP 135/84
--- NOTE | 2019-11-28 18:37 | NUR ---
Problems reprioritized. Patient report given, questions answered & plan of care reviewed with Vani RN.
--- NOTE | 2019-11-28 18:38 | NUR ---
Patient in room PCU 3023. I have received report from Joaquin CERVANTES and had the opportunity to ask questions and assume patient care.
[2019-11-28] MEDS: docusate sod 100mg capsule PO SCH (20:00)
[2019-11-28 21:26] LABS: ABG BASE EXCESS -0.7 mmol/L (-2.0-2.0); ABG HCO3 24.5 mmol/L (22.0-26.0); ABG OXYGEN SATURATION 97.7 % (94-97); ABG PCO2 (T) 42.1 mmHg (35.0-48.0); ABG PO2 (T) 116.2 mmHg (75.0-100.0); ALLEN'S TEST POSITIVE; FCOHb 1.3 % (0.0-3.9); FMetHb 0.3 % (0.0-1.5); FO2Hb 96.1 % (94-97); PATIENT TEMPERATURE 36.7; RESPIRATORY RATE 12 b/min; TOTAL HEMOGLOBIN 9.3 G/dl (14.0-18.0)
--- NOTE | 2019-11-28 21:55 | NUR ---
Spoke with marketing professor John Cobian, RESEARCH MANAGER regarding difficulty to arouse pt and not being able to respond to my questions, HR 132, BP 135/84. He ordered an ABG and blood glucose, ABG' were normal and BG was 88. John Cobian came in to the hospital and stated to try to give the patient his cardizem.
[2019-11-28 22:00] VITALS: BP 128/56
--- NOTE | 2019-11-28 22:20 | NUR ---
Pt refused Cardizem, educated him on the importance of taking it. Spoke with John Cobian again, I told him the pt shook his head No at me and refused medications. He stated that there's not much we can do with a patient in that condition.
--- NOTE | 2019-11-29 00:24 | NUR ---
pt refusing all oral medication, John Cobian NP aware.
[2019-11-29 02:00] VITALS: BP 135/60
[2019-11-29] MEDS: ipratropium/albuterol 3ml nebule NEB SCH ×4 (03:00→20:20)
--- NOTE | 2019-11-29 06:23 | NUR ---
Problems reprioritized. Patient report given, questions answered & plan of care reviewed with Joaquin CERVANTES.
--- NOTE | 2019-11-29 06:25 | NUR ---
Patient in room PCU 3023. I have received report from Vani CERVANTES and had the opportunity to ask questions and assume patient care.
[2019-11-29 07:00] VITALS: BP 118/57
[2019-11-29 07:37] LABS: BASOPHILS # (AUTO) 0.1 X10'3 (0-0.2); BASOPHILS % (AUTO) 0.8 % (0-1); EOSINOPHILS % (AUTO) 0.5 % (0-6); HEMOGLOBIN 8.5 g/dl (14.0-17.9); LYMPHOCYTES # (AUTO) 1.2 X10'3 (1.1-4.8); LYMPHOCYTES % (AUTO) 12.1 % (21-51); MEAN CORPUSCULAR HEMOGLOBIN 33.7 PG (27.0-31.0); MEAN CORPUSCULAR HGB CONC 32.7 g/dL (33.0-36.5); MEAN CORPUSCULAR VOLUME 103.1 FL (78-98); MONOCYTES # (AUTO) 0.4 X10'3 (0-0.9); MONOCYTES % (AUTO) 4.6 % (2-12); NEUTROPHILS # (AUTO) 7.8 X10'3 (1.8-7.7); PLATELET COUNT 93 X10'3 (140-440); RED BLOOD COUNT 2.52 X10'6 (4.70-6.10); RED CELL DISTRIBUTION WIDTH 15.4 % (11.5-14.5); WHITE BLOOD COUNT 9.5 X10'3 (4.5-11.0)
[2019-11-29 07:52] LABS: ALANINE AMINOTRANSFERASE 49 U/L (12-78); ALBUMIN 2.1 G/DL (3.4-5.0); ALBUMIN/GLOBULIN RATIO 0.4 (1.1-1.5); ALKALINE PHOSPHATASE 390 IU/L (46-116); ANION GAP 10 (8-16); ASPARTATE AMINO TRANSFERASE 87 U/L (10-37); BILIRUBIN,TOTAL 3.3 MG/DL (0.1-1.0); BLOOD UREA NITROGEN 66 MG/DL (7-18); BUN/CREATININE RATIO 30.6 (5.4-32.0); CALCIUM 7.9 MG/DL (8.5-10.1); CHLORIDE 101 MMOL/L (99-107); CREATININE 2.16 MG/DL (0.60-1.10); GLUCOSE 91 MG/DL (70-104); MAGNESIUM 1.5 MG/DL (1.5-2.4); PHOSPHORUS 6.2 MG/DL (2.3-4.5); POTASSIUM 4.8 MMOL/L (3.5-5.1); SODIUM 139 MMOL/L (135-145); TOTAL CARBON DIOXIDE 27.8 MMOL/L (24-32); TOTAL PROTEIN 7.2 G/DL (6.4-8.2); eGFR 34 ML/MIN
[2019-11-29] MEDS: sevelamer carbonate 800mg tablet PO SCH (07:58)
[2019-11-29] MEDS: diltiazem 30mg tablet PO SCH ×2 (07:58→19:20)
[2019-11-29] MEDS: chlordiazePOXIDE 25mg capsule PO SCH ×3 (07:58→16:21)
[2019-11-29] MEDS: fludrocortisone acetate 0.1mg tablet PO SCH (07:58)
[2019-11-29] MEDS: vitamin D (cholecalciferol) 1,000 unit tablet PO SCH (07:58)
[2019-11-29] MEDS: sertraline 50mg tablet PO SCH (07:58)
[2019-11-29] MEDS: midodrine 5mg tablet PO SCH ×3 (07:58→16:21)
[2019-11-29] MEDS: HYDROcodone/acetaminophen 10/325mg tab PO PRN (07:59)
[2019-11-29] MEDS: gabapentin 300mg capsule PO SCH ×2 (07:59→21:30)
[2019-11-29] MEDS: multivitamins, therapeutics tablet PO SCH (07:59)
[2019-11-29] MEDS: thiamine 100mg tablet PO SCH (07:59)
[2019-11-29] MEDS: docusate sod 100mg capsule PO SCH ×2 (07:59→19:19)
[2019-11-29] MEDS: folic acid 1mg tablet PO SCH (07:59)
[2019-11-29] MEDS: furosemide 40mg tablet PO SCH (07:59)
[2019-11-29] MEDS: heparin, porcine 5000 units/ml vial SQ SCH ×2 (08:01→20:00)
[2019-11-29] MEDS: nystatin 15 GM powder TP SCH ×3 (08:01→21:30)
[2019-11-29] MEDS ORDERED: amiodarone 200mg tablet PO ONE (10:55)
[2019-11-29] MEDS ORDERED: digoxin 250mcg (0.25mg) tablet PO ONE ×2 (10:55→11:15)
[2019-11-29 11:00] VITALS: BP 110/54
--- NOTE | 2019-11-29 11:14 | NUR ---
Patient continues to rip off tele leads constantly
[2019-11-29] MEDS: NUT.TX.IMP.RENAL FXN,LAC-REDUC (Nepro) 237 ML VANILLA PO SCH ×2 (13:00→18:00)
[2019-11-29 15:00] VITALS: BP 114/61
[2019-11-29] MEDS: MESSAGE TO NURSING PO SCH (16:00)
[2019-11-29 18:00] VITALS: BP 107/55
--- NOTE | 2019-11-29 18:17 | NUR ---
Problems reprioritized. Patient report given, questions answered & plan of care reviewed with Kaylin CERVANTES.
--- NOTE | 2019-11-29 18:19 | NUR ---
Patient in room PCU 3023. I have received report from Joaquin CERVANTES and had the opportunity to ask questions and assume patient care.
[2019-11-29] MEDS: amiodarone 200mg tablet PO SCH (19:20)
[2019-11-30] VITALS (7 sets, daily range): BP systolic 101–126; BP diastolic 55–86
[2019-11-30] MEDS: midodrine 5mg tablet PO SCH ×4 (00:19→23:57)
[2019-11-30] MEDS: chlordiazePOXIDE 25mg capsule PO SCH ×4 (00:19→23:57)
[2019-11-30] MEDS: ipratropium/albuterol 3ml nebule NEB SCH ×4 (03:00→21:09)
[2019-11-30 05:27] LABS: ANION GAP 9 (8-16); BLOOD UREA NITROGEN 63 MG/DL (7-18); BUN/CREATININE RATIO 34.4 (5.4-32.0); CALCIUM 7.9 MG/DL (8.5-10.1); CHLORIDE 99 MMOL/L (99-107); CREATININE 1.83 MG/DL (0.60-1.10); GLUCOSE 86 MG/DL (70-104); MAGNESIUM 1.3 MG/DL (1.5-2.4); PHOSPHORUS 5.7 MG/DL (2.3-4.5); POTASSIUM 4.3 MMOL/L (3.5-5.1); SODIUM 136 MMOL/L (135-145); TOTAL CARBON DIOXIDE 28.3 MMOL/L (24-32); eGFR 41 ML/MIN
[2019-11-30 05:29] LABS: BASOPHILS % (AUTO) 0.4 % (0-1); EOSINOPHILS # (AUTO) 0.1 X10'3 (0-0.9); EOSINOPHILS % (AUTO) 1.1 % (0-6); HEMATOCRIT 26.3 % (42.0-52.0); HEMOGLOBIN 8.5 g/dl (14.0-17.9); LYMPHOCYTES # (AUTO) 0.9 X10'3 (1.1-4.8); MEAN CORPUSCULAR HEMOGLOBIN 33.3 PG (27.0-31.0); MEAN CORPUSCULAR HGB CONC 32.5 g/dL (33.0-36.5); MEAN CORPUSCULAR VOLUME 102.5 FL (78-98); MEAN PLATELET VOLUME 9.5 FL (7.4-10.4); MONOCYTES # (AUTO) 0.5 X10'3 (0-0.9); MONOCYTES % (AUTO) 5.6 % (2-12); NEUTROPHILS # (AUTO) 7.7 X10'3 (1.8-7.7); NEUTROPHILS % (AUTO) 82.9 % (42-75); PLATELET COUNT 98 X10'3 (140-440); RED BLOOD COUNT 2.57 X10'6 (4.70-6.10); RED CELL DISTRIBUTION WIDTH 15.3 % (11.5-14.5); WHITE BLOOD COUNT 9.2 X10'3 (4.5-11.0)
--- NOTE | 2019-11-30 06:17 | NUR ---
Problems reprioritized. Patient report given, questions answered & plan of care reviewed with Parris CERVANTES.
--- NOTE | 2019-11-30 06:31 | NUR ---
Patient in room PCU 3023. I have received report from emily Ewing and had the opportunity to ask questions and assume patient care.
[2019-11-30] MEDS: docusate sod 100mg capsule PO SCH ×2 (07:41→20:57)
[2019-11-30] MEDS: multivitamins, therapeutics tablet PO SCH (07:43)
[2019-11-30] MEDS: gabapentin 300mg capsule PO SCH ×3 (07:43→20:57)
[2019-11-30] MEDS: digoxin 125mcg (0.125mg) tablet PO SCH (07:44)
[2019-11-30] MEDS: amiodarone 200mg tablet PO SCH ×2 (07:44→20:58)
[2019-11-30] MEDS: diltiazem 30mg tablet PO SCH ×2 (07:44→20:57)
[2019-11-30] MEDS: sertraline 50mg tablet PO SCH (07:45)
[2019-11-30] MEDS: folic acid 1mg tablet PO SCH (07:45)
[2019-11-30] MEDS: thiamine 100mg tablet PO SCH (07:45)
[2019-11-30] MEDS: vitamin D (cholecalciferol) 1,000 unit tablet PO SCH (07:45)
[2019-11-30] MEDS: HYDROcodone/acetaminophen 10/325mg tab PO PRN ×2 (07:56→21:11)
[2019-11-30] MEDS: nystatin 15 GM powder TP SCH ×3 (07:58→20:57)
[2019-11-30] MEDS: heparin, porcine 5000 units/ml vial SQ SCH ×2 (08:00→20:59)
[2019-11-30] MEDS: NUT.TX.IMP.RENAL FXN,LAC-REDUC (Nepro) 237 ML VANILLA PO SCH ×3 (08:00→18:00)
[2019-11-30] MEDS ORDERED: magnesium 2GM in 50ml NS 50 ML IV PRN (10:00)
[2019-11-30] MEDS ORDERED: magnesium 4gm in 100ml NS 100 ML IV PRN (10:00)
[2019-11-30] MEDS: magnesium Cl slow-release 64mg tablet PO PRN (10:52)
[2019-11-30] MEDS: MESSAGE TO NURSING PO SCH (16:00)
--- NOTE | 2019-11-30 18:00 | NUR ---
Patient in room PCU 3023. I have received report from Parris CERVANTES and had the opportunity to ask questions and assume patient care.
--- NOTE | 2019-11-30 18:10 | NUR ---
Problems reprioritized. Patient report given, questions answered & plan of care reviewed with HELEN Enamorado.
[2019-12-01 02:00] VITALS: BP 120/66
[2019-12-01] MEDS: ipratropium/albuterol 3ml nebule NEB SCH ×3 (03:57→20:33)
--- NOTE | 2019-12-01 06:05 | NUR ---
Patient in room PCU 3023. I have received report from HELEN Enamorado and had the opportunity to ask questions and assume patient care.
--- NOTE | 2019-12-01 06:05 | NUR ---
Problems reprioritized. Patient report given, questions answered & plan of care reviewed with BEVERLY CERVANTES.
[2019-12-01] MEDS: magnesium Cl slow-release 64mg tablet PO PRN (06:15)
[2019-12-01 06:26] LABS: BASOPHILS % (AUTO) 0.5 % (0-1); EOSINOPHILS # (AUTO) 0.1 X10'3 (0-0.9); EOSINOPHILS % (AUTO) 1.1 % (0-6); HEMATOCRIT 25.4 % (42.0-52.0); HEMOGLOBIN 8.2 g/dl (14.0-17.9); LYMPHOCYTES % (AUTO) 11.9 % (21-51); MEAN CORPUSCULAR HEMOGLOBIN 33.2 PG (27.0-31.0); MEAN CORPUSCULAR HGB CONC 32.3 g/dL (33.0-36.5); MEAN CORPUSCULAR VOLUME 102.7 FL (78-98); MEAN PLATELET VOLUME 9.3 FL (7.4-10.4); MONOCYTES # (AUTO) 0.5 X10'3 (0-0.9); MONOCYTES % (AUTO) 6.1 % (2-12); NEUTROPHILS # (AUTO) 6.6 X10'3 (1.8-7.7); NEUTROPHILS % (AUTO) 80.4 % (42-75); PLATELET COUNT 101 X10'3 (140-440); RED BLOOD COUNT 2.47 X10'6 (4.70-6.10); RED CELL DISTRIBUTION WIDTH 15.2 % (11.5-14.5); WHITE BLOOD COUNT 8.3 X10'3 (4.5-11.0)
[2019-12-01 06:55] LABS: ALBUMIN 2.1 G/DL (3.4-5.0); ANION GAP 8 (8-16); BLOOD UREA NITROGEN 59 MG/DL (7-18); BUN/CREATININE RATIO 37.6 (5.4-32.0); CHLORIDE 98 MMOL/L (99-107); CREATININE 1.57 MG/DL (0.60-1.10); GLUCOSE 86 MG/DL (70-104); MAGNESIUM 1.4 MG/DL (1.5-2.4); PHOSPHORUS 5.4 MG/DL (2.3-4.5); POTASSIUM 4.4 MMOL/L (3.5-5.1); SODIUM 134 MMOL/L (135-145); TOTAL CARBON DIOXIDE 28.1 MMOL/L (24-32); eGFR 48 ML/MIN
[2019-12-01 07:00] VITALS: BP 139/88
[2019-12-01] MEDS: heparin, porcine 5000 units/ml vial SQ SCH ×2 (07:29→20:21)
[2019-12-01] MEDS: docusate sod 100mg capsule PO SCH ×2 (07:30→20:00)
[2019-12-01] MEDS: sertraline 50mg tablet PO SCH (07:30)
[2019-12-01] MEDS: folic acid 1mg tablet PO SCH (07:30)
[2019-12-01] MEDS: digoxin 125mcg (0.125mg) tablet PO SCH (07:30)
[2019-12-01] MEDS: multivitamins, therapeutics tablet PO SCH (07:31)
[2019-12-01] MEDS: diltiazem 30mg tablet PO SCH ×2 (07:31→20:21)
[2019-12-01] MEDS: vitamin D (cholecalciferol) 1,000 unit tablet PO SCH (07:31)
[2019-12-01] MEDS: thiamine 100mg tablet PO SCH (07:31)
[2019-12-01] MEDS: nystatin 15 GM powder TP SCH ×3 (07:32→20:25)
[2019-12-01] MEDS: chlordiazePOXIDE 25mg capsule PO SCH ×2 (07:32→15:51)
[2019-12-01] MEDS: gabapentin 300mg capsule PO SCH ×3 (07:32→20:24)
[2019-12-01] MEDS: amiodarone 200mg tablet PO SCH ×2 (07:32→20:25)
[2019-12-01] MEDS: NUT.TX.IMP.RENAL FXN,LAC-REDUC (Nepro) 237 ML VANILLA PO SCH ×3 (08:00→18:00)
[2019-12-01] MEDS: midodrine 5mg tablet PO SCH (08:00)
[2019-12-01] MEDS ORDERED: amiodarone 200mg tablet PO STA (09:05)
[2019-12-01 11:00] VITALS: BP 119/56
--- NOTE | 2019-12-01 12:35 | NUR ---
Reassessment: Renal function continues to improve per MD notes. Pt continues on renal diet and documented with 0-25% PO intake since last RD assessment although up to 100% PO intake at breakfast this morning. Noted that pt consumed 100% of Nepro at dinner last night however 0% consumed this morning d/t it missing on meal tray. F/u with dietary to ensure ONS being sent TID per order. LBM 11/29 documented as small with last moderate BM being 11/28. Pt receiving routine bowel care. Improvement in PO intake may be r/t resolution of constipation as pt previously 6 days without a BM. Will continue to follow closely and monitor need for further nutrition intervention pending additional trends in PO intake. Rec: 1. continue renal diet; Encourage PO intake; Consider diet liberalization to regular if poor PO intake persists 2. Nepro TIDWM 3. Continue routine Thiamine, Folic acid, and MVI given EtOH hx and elevated MCV 4. routine bowel care 5. Scaled weights per rx 6. consider diet change to heart healthy if PO improves Addendum: 12/01/19 at [address] Amended: Links added.
[2019-12-01 15:00] VITALS: BP 116/65
[2019-12-01] MEDS: MESSAGE TO NURSING PO SCH (16:00)
[2019-12-01 18:00] VITALS: BP 130/57
--- NOTE | 2019-12-01 18:12 | NUR ---
Problems reprioritized. Patient report given, questions answered & plan of care reviewed with Omari RN.
--- NOTE | 2019-12-01 18:12 | NUR ---
Pt has been refusing q2 hour turns throughout shift.
[2019-12-01] MEDS: HYDROcodone/acetaminophen 10/325mg tab PO PRN (18:49)
[2019-12-01 23:00] VITALS: BP 121/58
[2019-12-02] MEDS: chlordiazePOXIDE 25mg capsule PO SCH ×3 (00:31→16:00)
[2019-12-02] MEDS: ipratropium/albuterol 3ml nebule NEB SCH ×4 (02:30→21:44)
[2019-12-02 03:00] VITALS: BP 112/53
[2019-12-02 06:00] VITALS: BP 122/60
--- NOTE | 2019-12-02 06:00 | NUR ---
Patient in room PCU 3023. I have received report from Parris CERVANTES and had the opportunity to ask questions and assume patient care.
[2019-12-02 06:08] LABS: BASOPHILS # (AUTO) 0.1 X10'3 (0-0.2); BASOPHILS % (AUTO) 1.1 % (0-1); EOSINOPHILS # (AUTO) 0.1 X10'3 (0-0.9); EOSINOPHILS % (AUTO) 1.2 % (0-6); HEMATOCRIT 24.3 % (42.0-52.0); HEMOGLOBIN 7.9 g/dl (14.0-17.9); LYMPHOCYTES # (AUTO) 1.2 X10'3 (1.1-4.8); LYMPHOCYTES % (AUTO) 14.4 % (21-51); MEAN CORPUSCULAR HEMOGLOBIN 33.3 PG (27.0-31.0); MEAN CORPUSCULAR HGB CONC 32.7 g/dL (33.0-36.5); MEAN CORPUSCULAR VOLUME 101.9 FL (78-98); MEAN PLATELET VOLUME 9.1 FL (7.4-10.4); MONOCYTES # (AUTO) 0.4 X10'3 (0-0.9); MONOCYTES % (AUTO) 5.5 % (2-12); NEUTROPHILS # (AUTO) 6.3 X10'3 (1.8-7.7); NEUTROPHILS % (AUTO) 77.8 % (42-75); PLATELET COUNT 98 X10'3 (140-440); RED BLOOD COUNT 2.39 X10'6 (4.70-6.10); RED CELL DISTRIBUTION WIDTH 15.5 % (11.5-14.5); WHITE BLOOD COUNT 8.1 X10'3 (4.5-11.0)
[2019-12-02 06:20] LABS: ALBUMIN 2.1 G/DL (3.4-5.0); ANION GAP 8 (8-16); BLOOD UREA NITROGEN 52 MG/DL (7-18); CALCIUM 8.6 MG/DL (8.5-10.1); CHLORIDE 99 MMOL/L (99-107); CREATININE 1.37 MG/DL (0.60-1.10); GLUCOSE 99 MG/DL (70-104); MAGNESIUM 1.3 MG/DL (1.5-2.4); PHOSPHORUS 4.3 MG/DL (2.3-4.5); POTASSIUM 4.3 MMOL/L (3.5-5.1); SODIUM 135 MMOL/L (135-145); TOTAL CARBON DIOXIDE 27.8 MMOL/L (24-32); eGFR 57 ML/MIN
--- NOTE | 2019-12-02 06:30 | NUR ---
Patient in room PCU 3023. I have received report from HELEN GOLDSTEIN and had the opportunity to ask questions and assume patient care.
--- NOTE | 2019-12-02 06:43 | NUR ---
Problems reprioritized. Patient report given, questions answered & plan of care reviewed with Herminio RN.
[2019-12-02] MEDS: docusate sod 100mg capsule PO SCH ×2 (08:00→20:00)
[2019-12-02] MEDS: diltiazem 30mg tablet PO SCH ×2 (08:41→20:41)
[2019-12-02] MEDS: amiodarone 200mg tablet PO SCH ×2 (08:42→20:41)
[2019-12-02] MEDS: folic acid 1mg tablet PO SCH (08:43)
[2019-12-02] MEDS: digoxin 125mcg (0.125mg) tablet PO SCH (08:43)
[2019-12-02] MEDS: thiamine 100mg tablet PO SCH (08:44)
[2019-12-02] MEDS: multivitamins, therapeutics tablet PO SCH (08:44)
[2019-12-02] MEDS: NUT.TX.IMP.RENAL FXN,LAC-REDUC (Nepro) 237 ML VANILLA PO SCH ×3 (08:44→18:05)
[2019-12-02] MEDS: gabapentin 300mg capsule PO SCH ×3 (08:44→20:41)
[2019-12-02] MEDS: vitamin D (cholecalciferol) 1,000 unit tablet PO SCH (08:45)
[2019-12-02] MEDS: sertraline 50mg tablet PO SCH (08:46)
[2019-12-02] MEDS: heparin, porcine 5000 units/ml vial SQ SCH ×2 (08:46→20:40)
[2019-12-02] MEDS: nystatin 15 GM powder TP SCH ×3 (08:47→20:42)
[2019-12-02] MEDS: magnesium Cl slow-release 64mg tablet PO PRN (08:47)
[2019-12-02] MEDS ORDERED: furosemide 40mg/4ml inj IV ONE (10:55)
[2019-12-02 11:00] VITALS: BP 116/63
[2019-12-02 11:06] LABS: ABG BASE EXCESS -1.3 mmol/L (-2.0-2.0); ABG HCO3 23.1 mmol/L (22.0-26.0); ABG OXYGEN SATURATION 87.5 % (94-97); ABG PCO2 (T) 37.2 mmHg (35.0-48.0); ALLEN'S TEST POSITIVE; FCOHb 0.9 % (0.0-3.9); FLOW 2 L/min; FMetHb 0.1 % (0.0-1.5); FO2Hb 86.6 % (94-97)
[2019-12-02] MEDS ORDERED: furosemide 20MG tablet PO ONE (11:20)
[2019-12-02] MEDS: HYDROcodone/acetaminophen 10/325mg tab PO PRN (11:33)
--- NOTE | 2019-12-02 14:15 | NUR ---
OLEGARIO SUPERVISOR RIDE ASSEMBLY:PLEASE CALL ABBY GARCIA [phone]. TY Addendum: 12/02/19 at 1415 by Tai Rosa RN WRONG PT
[2019-12-02 15:00] VITALS: BP 110/69
[2019-12-02] MEDS: MESSAGE TO NURSING PO SCH (16:00)
--- NOTE | 2019-12-02 16:10 | NUR ---
OLGA LIDIA CRAWFORD NOTIFIED PT TO LETHARGIC TO ADM PO LIBRIUM AT THIS TIME.
[2019-12-02 18:00] VITALS: BP 123/59
--- NOTE | 2019-12-02 18:21 | NUR ---
Problems reprioritized. Patient report given, questions answered & plan of care reviewed with asya rn.
--- NOTE | 2019-12-02 18:30 | NUR ---
Patient in room PCU 3023. I have received report from Herminio CERVANTES and had the opportunity to ask questions and assume patient care.
[2019-12-02] MEDS ORDERED: furosemide 40mg/4ml inj IV SCH (20:00)
[2019-12-02] MEDS: furosemide 40mg tablet PO SCH (20:41)
[2019-12-02 22:00] VITALS: BP 115/56
[2019-12-03] VITALS (7 sets, daily range): BP systolic 102–139; BP diastolic 38–71
[2019-12-03] MEDS: chlordiazePOXIDE 25mg capsule PO SCH ×3 (00:11→16:00)
[2019-12-03] MEDS: ipratropium/albuterol 3ml nebule NEB SCH ×4 (04:05→21:00)
--- NOTE | 2019-12-03 06:10 | NUR ---
Patient in room PCU 3023. I have received report from HELEN GOLDSTEIN and had the opportunity to ask questions and assume patient care.
--- NOTE | 2019-12-03 06:15 | NUR ---
Problems reprioritized. Patient report given, questions answered & plan of care reviewed with Herminio RN.
[2019-12-03 06:35] LABS: BASOPHILS % (AUTO) 0.5 % (0-1); EOSINOPHILS # (AUTO) 0.1 X10'3 (0-0.9); EOSINOPHILS % (AUTO) 1.1 % (0-6); HEMATOCRIT 25.3 % (42.0-52.0); HEMOGLOBIN 8.2 g/dl (14.0-17.9); LYMPHOCYTES # (AUTO) 0.9 X10'3 (1.1-4.8); LYMPHOCYTES % (AUTO) 13.7 % (21-51); MEAN CORPUSCULAR HEMOGLOBIN 33.3 PG (27.0-31.0); MEAN CORPUSCULAR HGB CONC 32.2 g/dL (33.0-36.5); MEAN CORPUSCULAR VOLUME 103.3 FL (78-98); MEAN PLATELET VOLUME 9.6 FL (7.4-10.4); MONOCYTES # (AUTO) 0.4 X10'3 (0-0.9); MONOCYTES % (AUTO) 5.9 % (2-12); NEUTROPHILS # (AUTO) 5.2 X10'3 (1.8-7.7); NEUTROPHILS % (AUTO) 78.8 % (42-75); PLATELET COUNT 103 X10'3 (140-440); RED BLOOD COUNT 2.45 X10'6 (4.70-6.10); RED CELL DISTRIBUTION WIDTH 15.1 % (11.5-14.5); WHITE BLOOD COUNT 6.6 X10'3 (4.5-11.0)
[2019-12-03 06:52] LABS: ALBUMIN 2.2 G/DL (3.4-5.0); ANION GAP 10 (8-16); BLOOD UREA NITROGEN 44 MG/DL (7-18); BUN/CREATININE RATIO 38.9 (5.4-32.0); CALCIUM 8.9 MG/DL (8.5-10.1); CHLORIDE 101 MMOL/L (99-107); CREATININE 1.13 MG/DL (0.60-1.10); GLUCOSE 92 MG/DL (70-104); MAGNESIUM 1.5 MG/DL (1.5-2.4); PHOSPHORUS 4.1 MG/DL (2.3-4.5); POTASSIUM 4.1 MMOL/L (3.5-5.1); SODIUM 137 MMOL/L (135-145); TOTAL CARBON DIOXIDE 26.3 MMOL/L (24-32); eGFR 71 ML/MIN
[2019-12-03] MEDS: docusate sod 100mg capsule PO SCH ×2 (08:00→20:58)
[2019-12-03] MEDS: NUT.TX.IMP.RENAL FXN,LAC-REDUC (Nepro) 237 ML VANILLA PO SCH ×3 (08:14→18:00)
[2019-12-03] MEDS: diltiazem 30mg tablet PO SCH ×2 (08:16→20:58)
[2019-12-03] MEDS: amiodarone 200mg tablet PO SCH ×2 (08:17→20:58)
[2019-12-03] MEDS: digoxin 125mcg (0.125mg) tablet PO SCH (08:18)
[2019-12-03] MEDS: folic acid 1mg tablet PO SCH (08:18)
[2019-12-03] MEDS: furosemide 40mg tablet PO SCH ×2 (08:19→20:55)
[2019-12-03] MEDS: gabapentin 300mg capsule PO SCH ×3 (08:20→20:58)
[2019-12-03] MEDS: multivitamins, therapeutics tablet PO SCH (08:20)
[2019-12-03] MEDS: thiamine 100mg tablet PO SCH (08:20)
[2019-12-03] MEDS: vitamin D (cholecalciferol) 1,000 unit tablet PO SCH (08:21)
[2019-12-03] MEDS: sertraline 50mg tablet PO SCH (08:22)
[2019-12-03] MEDS: nystatin 15 GM powder TP SCH ×3 (08:22→21:12)
[2019-12-03] MEDS: heparin, porcine 5000 units/ml vial SQ SCH ×2 (08:23→20:55)
[2019-12-03] MEDS: MESSAGE TO NURSING PO SCH (16:13)
[2019-12-03 16:45] LABS: CLARITY,URINE TURBID (Clear); GLUCOSE, URINE NEGATIVE (Neg); KETONES,URINE NEGATIVE (Neg); LEUKOCYTE ESTERASE ,URINE LARGE (Neg); NITRITES, URINE POSITIVE (Neg); OCCULT BLOOD,URINE LARGE (Neg); PROTEIN,URINE 30 mg/dl (Neg)
[2019-12-03 16:51] LABS: COLOR,URINE DARK YELLOW (Yellow); UA COLLECTION TYPE FOLEY CATH
[2019-12-03 17:12] LABS: MUCUS STRANDS NONE SEEN /LPF (Neg); SQUAMOUS EPITHELIAL CELL,UR MODERATE /LPF (FEW); TRANSITIONAL EPI CELLS,URINE FEW /HPF
[2019-12-03 17:17] LABS: COARSE GRANULAR CAST 0-3 /LPF (NEGATIVE); TRIPLE PHOSPHATE CRYST 1+ /HPF (NEGATIVE)
[2019-12-03 17:20] LABS: BACTERIA,URINE 4+ /HPF (Neg)
--- NOTE | 2019-12-03 18:13 | NUR ---
Problems reprioritized. Patient report given, questions answered & plan of care reviewed with ANGELITA RN.
--- NOTE | 2019-12-03 18:30 | NUR ---
Patient in room PCU 3023. I have received report from Herminio CERVANTES and had the opportunity to ask questions and assume patient care.
[2019-12-04] MEDS: chlordiazePOXIDE 25mg capsule PO SCH ×4 (00:10→23:49)
[2019-12-04 03:00] VITALS: BP 119/62
[2019-12-04] MEDS: ipratropium/albuterol 3ml nebule NEB SCH ×4 (03:00→22:53)
[2019-12-04 06:00] VITALS: BP 136/72
[2019-12-04 06:02] LABS: ALBUMIN 2.3 G/DL (3.4-5.0); ANION GAP 6 (8-16); BASOPHILS % (AUTO) 0.8 % (0-1); BLOOD UREA NITROGEN 36 MG/DL (7-18); BUN/CREATININE RATIO 30.8 (5.4-32.0); CALCIUM 9.2 MG/DL (8.5-10.1); CHLORIDE 103 MMOL/L (99-107); CREATININE 1.17 MG/DL (0.60-1.10); EOSINOPHILS # (AUTO) 0.1 X10'3 (0-0.9); EOSINOPHILS % (AUTO) 1.6 % (0-6); GLUCOSE 97 MG/DL (70-104); HEMATOCRIT 23.2 % (42.0-52.0); HEMOGLOBIN 7.5 g/dl (14.0-17.9); LYMPHOCYTES # (AUTO) 0.9 X10'3 (1.1-4.8); LYMPHOCYTES % (AUTO) 14.7 % (21-51); MAGNESIUM 1.5 MG/DL (1.5-2.4); MEAN CORPUSCULAR HGB CONC 32.2 g/dL (33.0-36.5); MEAN CORPUSCULAR VOLUME 102.5 FL (78-98); MEAN PLATELET VOLUME 9.1 FL (7.4-10.4); MONOCYTES # (AUTO) 0.4 X10'3 (0-0.9); MONOCYTES % (AUTO) 6.1 % (2-12); NEUTROPHILS # (AUTO) 4.5 X10'3 (1.8-7.7); NEUTROPHILS % (AUTO) 76.8 % (42-75); PHOSPHORUS 3.4 MG/DL (2.3-4.5); PLATELET COUNT 121 X10'3 (140-440); POTASSIUM 3.9 MMOL/L (3.5-5.1); RED BLOOD COUNT 2.26 X10'6 (4.70-6.10); RED CELL DISTRIBUTION WIDTH 15.3 % (11.5-14.5); SODIUM 139 MMOL/L (135-145); TOTAL CARBON DIOXIDE 29.7 MMOL/L (24-32); WHITE BLOOD COUNT 5.9 X10'3 (4.5-11.0); eGFR 68 ML/MIN
--- NOTE | 2019-12-04 06:27 | NUR ---
Problems reprioritized. Patient report given, questions answered & plan of care reviewed with Herminio RN.
--- NOTE | 2019-12-04 06:30 | NUR ---
Patient in room PCU 3023. I have received report from HELEN GOLDSTEIN and had the opportunity to ask questions and assume patient care.
[2019-12-04] MEDS: NUT.TX.IMP.RENAL FXN,LAC-REDUC (Nepro) 237 ML VANILLA PO SCH ×3 (08:00→18:00)
[2019-12-04] MEDS: docusate sod 100mg capsule PO SCH ×2 (08:00→20:00)
[2019-12-04] MEDS: diltiazem 30mg tablet PO SCH ×2 (09:00→20:08)
[2019-12-04] MEDS: amiodarone 200mg tablet PO SCH ×2 (09:01→20:07)
[2019-12-04] MEDS: folic acid 1mg tablet PO SCH (09:02)
[2019-12-04] MEDS: digoxin 125mcg (0.125mg) tablet PO SCH (09:03)
[2019-12-04] MEDS: furosemide 40mg tablet PO SCH ×2 (09:03→20:07)
[2019-12-04] MEDS: gabapentin 300mg capsule PO SCH ×3 (09:04→20:08)
[2019-12-04] MEDS: thiamine 100mg tablet PO SCH ×2 (09:04→20:10)
[2019-12-04] MEDS: multivitamins, therapeutics tablet PO SCH (09:04)
[2019-12-04] MEDS: vitamin D (cholecalciferol) 1,000 unit tablet PO SCH (09:05)
[2019-12-04] MEDS: sertraline 50mg tablet PO SCH (09:06)
[2019-12-04] MEDS: heparin, porcine 5000 units/ml vial SQ SCH ×2 (09:07→20:08)
[2019-12-04] MEDS: nystatin 15 GM powder TP SCH ×3 (09:07→20:18)
[2019-12-04 11:00] VITALS: BP 127/77
--- NOTE | 2019-12-04 13:42 | NUR ---
Reassessment: Pt PO remains poor essentially 0% meals/ONS past 5 days not meeting needs. Remains altered AOx3 w/ ataxia noted in MD note today; RN reports has not noticed ataxia at meals but has offered to chop foods for pt since mainly eating crackers/finger foods. Chopped all added to meals to hopefully improve PO. Thiamin and folic acid dosage doubled today from prior per EMR; etoh abuse on admit and ALOC persists. MCV 102.5. Refused skin assessment per EMR. Pt likely constipated as well only small BM's noted since 11/29 though refused colace today r/t diarrhea but no GI symptoms noted. Unsure if constipation significance though cold impact PO in addition to ALOC. RD d/w RN regarding advancement to regular diet from current renal diet given electrolytes WNL and poor PO hx if MD agreeable. Will continue to monitor for PO tolerance and additional protein needs; if poor PO/severe weakness persists will meet minimum severe malnutrition criteria. Rec: 1. Consider diet liberalization to regular diet in view of poor PO intake; encourage PO 2. Nepro TIDWM; encourage PO 3. routine Thiamine, Folic acid, and MVI for etoh per MD 4. routine bowel care 5. Weekly wts 6. consider diet change to heart healthy if PO improves Addendum: 12/04/19 at [address] Amended: Links added.
[2019-12-04 15:00] VITALS: BP 125/65
[2019-12-04] MEDS: MESSAGE TO NURSING PO SCH (16:46)
[2019-12-04 18:00] VITALS: BP 142/69
--- NOTE | 2019-12-04 18:30 | NUR ---
Patient in room PCU 3023. I have received report from Herminio CERVANTES and had the opportunity to ask questions and assume patient care.
--- NOTE | 2019-12-04 19:06 | NUR ---
page sent per order info PAGER ID: [phone] MESSAGE: William Meier, 3023C- 2 orders in- "nerve conduction motor, bilat legs" and "EMG 2 extremities, bilat legs" Omari CERVANTES [phone] Addendum: 12/04/19 at 1914 by Bimal Beard RN EEG returned call and stated that they have not done those tests for at least 5 years, they suggest consulting with DR. Manuel as he MAY do them in his office, unsure if there is a "mobile version" available. per EEG his hours are 7-7 and will need to be contacted tomorrow.
[2019-12-05 03:00] VITALS: BP 126/54
[2019-12-05] MEDS: ipratropium/albuterol 3ml nebule NEB SCH ×4 (03:24→20:43)
--- NOTE | 2019-12-05 06:05 | NUR ---
Patient in room PCU 3023. I have received report from [facility] RN and had the opportunity to ask questions and assume patient care. Patient not awake on report and in no apparent distress.
--- NOTE | 2019-12-05 06:15 | NUR ---
Problems reprioritized. Patient report given, questions answered & plan of care reviewed with Alicia Devlin RN.
[2019-12-05 06:22] LABS: BASOPHILS # (AUTO) 0.1 X10'3 (0-0.2); BASOPHILS % (AUTO) 0.8 % (0-1); EOSINOPHILS # (AUTO) 0.1 X10'3 (0-0.9); EOSINOPHILS % (AUTO) 1.4 % (0-6); HEMATOCRIT 26.9 % (42.0-52.0); HEMOGLOBIN 8.5 g/dl (14.0-17.9); LYMPHOCYTES # (AUTO) 1.1 X10'3 (1.1-4.8); LYMPHOCYTES % (AUTO) 17.3 % (21-51); MEAN CORPUSCULAR HEMOGLOBIN 32.8 PG (27.0-31.0); MEAN CORPUSCULAR HGB CONC 31.6 g/dL (33.0-36.5); MEAN CORPUSCULAR VOLUME 103.7 FL (78-98); MEAN PLATELET VOLUME 8.9 FL (7.4-10.4); MONOCYTES # (AUTO) 0.8 X10'3 (0-0.9); MONOCYTES % (AUTO) 12.4 % (2-12); NEUTROPHILS # (AUTO) 4.5 X10'3 (1.8-7.7); NEUTROPHILS % (AUTO) 68.1 % (42-75); PLATELET COUNT 142 X10'3 (140-440); RED BLOOD COUNT 2.59 X10'6 (4.70-6.10); RED CELL DISTRIBUTION WIDTH 15.7 % (11.5-14.5); WHITE BLOOD COUNT 6.6 X10'3 (4.5-11.0)
--- NOTE | 2019-12-05 06:29 | NUR ---
Patient in room PCU 3023. I have received report from HELEN Salcido and had the opportunity to ask questions and assume patient care. Pt sleeping comfortably, Bipap on.
[2019-12-05 06:43] LABS: ALBUMIN 2.5 G/DL (3.4-5.0); ANION GAP 10 (8-16); BLOOD UREA NITROGEN 32 MG/DL (7-18); BUN/CREATININE RATIO 28.1 (5.4-32.0); CALCIUM 9.5 MG/DL (8.5-10.1); CHLORIDE 104 MMOL/L (99-107); CREATININE 1.14 MG/DL (0.60-1.10); GLUCOSE 99 MG/DL (70-104); MAGNESIUM 1.6 MG/DL (1.5-2.4); PHOSPHORUS 3.5 MG/DL (2.3-4.5); SODIUM 142 MMOL/L (135-145); TOTAL CARBON DIOXIDE 28.4 MMOL/L (24-32); eGFR 70 ML/MIN
[2019-12-05 07:00] VITALS: BP 131/92
[2019-12-05] MEDS: folic acid 1mg tablet PO SCH ×2 (08:00→08:44)
[2019-12-05] MEDS: NUT.TX.IMP.RENAL FXN,LAC-REDUC (Nepro) 237 ML VANILLA PO SCH ×3 (08:00→18:00)
[2019-12-05] MEDS: docusate sod 100mg capsule PO SCH ×2 (08:00→19:52)
[2019-12-05] MEDS: thiamine 100mg tablet PO SCH ×2 (08:00→08:46)
[2019-12-05] MEDS: diltiazem 30mg tablet PO SCH ×2 (08:42→19:52)
[2019-12-05] MEDS: sertraline 50mg tablet PO SCH (08:43)
[2019-12-05] MEDS: amiodarone 200mg tablet PO SCH ×2 (08:44→19:51)
[2019-12-05] MEDS: furosemide 40mg tablet PO SCH ×2 (08:44→19:51)
[2019-12-05] MEDS: gabapentin 300mg capsule PO SCH ×3 (08:44→21:36)
[2019-12-05] MEDS: vitamin D (cholecalciferol) 1,000 unit tablet PO SCH (08:45)
[2019-12-05] MEDS: digoxin 125mcg (0.125mg) tablet PO SCH (08:46)
[2019-12-05] MEDS: chlordiazePOXIDE 25mg capsule PO SCH ×2 (08:46→16:00)
[2019-12-05] MEDS: multivitamins, therapeutics tablet PO SCH (08:46)
[2019-12-05] MEDS: heparin, porcine 5000 units/ml vial SQ SCH ×2 (08:49→19:52)
[2019-12-05] MEDS: nystatin 15 GM powder TP SCH ×3 (08:59→21:36)
[2019-12-05 10:06] LABS: ABG BASE EXCESS 2.9 mmol/L (-2.0-2.0); ABG HCO3 28.2 mmol/L (22.0-26.0); ABG PCO2 (T) 46.8 mmHg (35.0-48.0); ABG PO2 (T) 83.8 mmHg (75.0-100.0); ALLEN'S TEST POSITIVE; FCOHb 0.6 % (0.0-3.9); FMetHb 0.1 % (0.0-1.5); FO2Hb 94.3 % (94-97); RESPIRATORY RATE 12 b/min; TIDAL VOLUME 408 mL; TOTAL HEMOGLOBIN 10.4 G/dl (14.0-18.0)
[2019-12-05 11:00] VITALS: BP 133/63
--- NOTE | 2019-12-05 11:52 | NUR ---
Contacted [facility], scheduled a tele psych evaluation.
[2019-12-05 14:49] LABS: URINE AMPHETAMINE SCREEN NEGATIVE (Neg); URINE BARBITUATE SCREEN NEGATIVE (Neg); URINE BENZODIAZEPINES SCREEN POSITIVE (Neg); URINE CANNABINOID SCREEN POSITIVE (Neg); URINE COCAINE SCREEN NEGATIVE (Neg); URINE METHADONE SCREEN NEGATIVE (Neg); URINE OPIATE SCREEN POSITIVE (Neg); URINE PHENCYCLIDINE SCREEN NEGATIVE (Neg)
[2019-12-05 15:00] VITALS: BP 122/66
--- NOTE | 2019-12-05 15:43 | NUR ---
Called [facility], planned a Tele psych consult per Dr Moreno's orders. ER had to use the Tele computer for two patient's, I'm waiting for the Tele computer from the ER so I can call for another consult.
[2019-12-05] MEDS: MESSAGE TO NURSING PO SCH (16:00)
[2019-12-05 18:00] VITALS: BP 125/77
--- NOTE | 2019-12-05 18:12 | NUR ---
Problems reprioritized. Patient report given, questions answered & plan of care reviewed with Pam CERVANTES. Patient resting in recliner and in no distress.
--- NOTE | 2019-12-05 18:12 | NUR ---
Problems reprioritized. Patient report given, questions answered & plan of care reviewed with HELEN Orozco. Informed RN that pt still needed to have Tele Psych Eval. That the ER had to use the Tele computer with other patients, and she needs to call down to ER to see if they are done with the Tele computer.
[2019-12-05 22:00] VITALS: BP 105/47
[2019-12-05] MEDS: HYDROcodone/acetaminophen 10/325mg tab PO PRN (22:24)
[2019-12-06] VITALS (7 sets, daily range): BP systolic 106–139; BP diastolic 47–68
[2019-12-06] MEDS: ipratropium/albuterol 3ml nebule NEB SCH ×4 (03:21→20:37)
[2019-12-06 05:56] LABS: BASOPHILS # (AUTO) 0.1 X10'3 (0-0.2); BASOPHILS % (AUTO) 1.6 % (0-1); EOSINOPHILS # (AUTO) 0.1 X10'3 (0-0.9); EOSINOPHILS % (AUTO) 1.9 % (0-6); HEMOGLOBIN 7.5 g/dl (14.0-17.9); LYMPHOCYTES # (AUTO) 1.1 X10'3 (1.1-4.8); LYMPHOCYTES % (AUTO) 17.8 % (21-51); MEAN CORPUSCULAR HGB CONC 32.4 g/dL (33.0-36.5); MEAN CORPUSCULAR VOLUME 104.7 FL (78-98); MEAN PLATELET VOLUME 9.3 FL (7.4-10.4); MONOCYTES # (AUTO) 0.6 X10'3 (0-0.9); MONOCYTES % (AUTO) 10.5 % (2-12); NEUTROPHILS # (AUTO) 4.2 X10'3 (1.8-7.7); NEUTROPHILS % (AUTO) 68.2 % (42-75); PLATELET COUNT 148 X10'3 (140-440); RED CELL DISTRIBUTION WIDTH 15.5 % (11.5-14.5); WHITE BLOOD COUNT 6.2 X10'3 (4.5-11.0)
[2019-12-06 06:08] LABS: ALBUMIN 2.4 G/DL (3.4-5.0); ANION GAP 7 (8-16); BLOOD UREA NITROGEN 34 MG/DL (7-18); BUN/CREATININE RATIO 25.8 (5.4-32.0); CALCIUM 9.1 MG/DL (8.5-10.1); CHLORIDE 107 MMOL/L (99-107); CREATININE 1.32 MG/DL (0.60-1.10); GLUCOSE 87 MG/DL (70-104); MAGNESIUM 1.6 MG/DL (1.5-2.4); PHOSPHORUS 3.7 MG/DL (2.3-4.5); SODIUM 143 MMOL/L (135-145); TOTAL CARBON DIOXIDE 28.7 MMOL/L (24-32); eGFR 59 ML/MIN
--- NOTE | 2019-12-06 06:30 | NUR ---
Problems reprioritized. Patient report given, questions answered & plan of care reviewed with Satnam Vargas RN.
[2019-12-06] MEDS: docusate sod 100mg capsule PO SCH ×2 (07:50→19:57)
[2019-12-06] MEDS: furosemide 40mg tablet PO SCH ×2 (07:50→19:57)
[2019-12-06] MEDS: multivitamins, therapeutics tablet PO SCH (07:50)
[2019-12-06] MEDS: gabapentin 300mg capsule PO SCH (07:50)
[2019-12-06] MEDS: chlordiazePOXIDE 25mg capsule PO SCH ×2 (07:51)
[2019-12-06] MEDS: thiamine 100mg tablet PO SCH (07:51)
[2019-12-06] MEDS: vitamin D (cholecalciferol) 1,000 unit tablet PO SCH (07:51)
[2019-12-06] MEDS: folic acid 1mg tablet PO SCH (07:51)
[2019-12-06] MEDS: diltiazem 30mg tablet PO SCH ×2 (07:51→19:56)
[2019-12-06] MEDS: amiodarone 200mg tablet PO SCH ×2 (07:51→19:57)
[2019-12-06] MEDS: nystatin 15 GM powder TP SCH ×3 (07:52→21:09)
[2019-12-06] MEDS: heparin, porcine 5000 units/ml vial SQ SCH ×2 (07:52→19:57)
[2019-12-06] MEDS: digoxin 125mcg (0.125mg) tablet PO SCH (07:52)
[2019-12-06] MEDS: HYDROcodone/acetaminophen 10/325mg tab PO PRN (07:58)
[2019-12-06] MEDS: sertraline 50mg tablet PO SCH (07:58)
[2019-12-06] MEDS: NUT.TX.IMP.RENAL FXN,LAC-REDUC (Nepro) 237 ML VANILLA PO SCH ×3 (08:00→18:00)
--- NOTE | 2019-12-06 10:19 | NUR ---
Dr. Moreno at bedside with patient and nurse. New orders DC Accu checks. Keep noel as protocol as critically ill. Monitor I and Os
--- NOTE | 2019-12-06 10:38 | NUR ---
Dr. Moreno New orders lasix 80 BID.
[2019-12-06] MEDS ORDERED: LIDOcaine 2% 10ml TOPICAL JELLY (Urojet) TP ONE (10:40)
[2019-12-06] MEDS ORDERED: furosemide 10 MG/1 ML 10ml inj IV SCH (11:00)
--- NOTE | 2019-12-06 15:45 | NUR ---
Patient super confused pulling lines, pulled IV out and all leads multiple time. Dr. Moreno OK soft restraints per the confusion.
[2019-12-06] MEDS: MESSAGE TO NURSING PO SCH (16:00)
--- NOTE | 2019-12-06 16:18 | NUR ---
Dr. Moreno called and has spoke with neurologist. Patient is needing CT and a sediment rate. Will add and continue to monitor..
--- NOTE | 2019-12-06 18:34 | NUR ---
Problems reprioritized. Patient report given, questions answered & plan of care reviewed with Elena CERVANTES.
--- NOTE | 2019-12-06 18:34 | NUR ---
Re faxed paperwork to [facility] regarding transfer agreement.
[2019-12-06 18:51] LABS: HEMATOCRIT 23.7 % (42.0-52.0); HEMOGLOBIN 7.6 g/dl (14.0-17.9); MEAN CORPUSCULAR HEMOGLOBIN 32.8 PG (27.0-31.0); MEAN CORPUSCULAR HGB CONC 32.1 g/dL (33.0-36.5); MEAN CORPUSCULAR VOLUME 102.1 FL (78-98); PLATELET COUNT 170 X10'3 (140-440); RED BLOOD COUNT 2.32 X10'6 (4.70-6.10)
[2019-12-06] MEDS: levoTHYROXINE 75mcg tablet PO SCH (19:57)
[2019-12-07 02:00] VITALS: BP 134/68
[2019-12-07] MEDS: ipratropium/albuterol 3ml nebule NEB SCH ×4 (02:32→20:25)
--- NOTE | 2019-12-07 06:20 | NUR ---
Patient in room PCU 3023. I have received report from Elena CERVANTES and had the opportunity to ask questions and assume patient care.
[2019-12-07 07:00] VITALS: BP 135/74
--- NOTE | 2019-12-07 07:05 | NUR ---
New order to obtain a rapid covid prior to transfer. Called Monica to have a verbal given to lab before we can do test.
[2019-12-07] MEDS: multivitamins, therapeutics tablet PO SCH (09:16)
[2019-12-07] MEDS: folic acid 1mg tablet PO SCH (09:16)
[2019-12-07] MEDS: heparin, porcine 5000 units/ml vial SQ SCH ×2 (09:16→20:37)
[2019-12-07] MEDS: diltiazem 30mg tablet PO SCH ×2 (09:16→20:36)
[2019-12-07] MEDS: amiodarone 200mg tablet PO SCH ×2 (09:17→20:36)
[2019-12-07] MEDS: docusate sod 100mg capsule PO SCH ×2 (09:17→20:00)
[2019-12-07] MEDS: digoxin 125mcg (0.125mg) tablet PO SCH (09:17)
[2019-12-07] MEDS: thiamine 100mg tablet PO SCH ×2 (09:17→20:36)
[2019-12-07] MEDS: vitamin D (cholecalciferol) 1,000 unit tablet PO SCH (09:18)
[2019-12-07] MEDS: furosemide 40mg tablet PO SCH ×4 (09:19→20:36)
[2019-12-07] MEDS: NUT.TX.IMP.RENAL FXN,LAC-REDUC (Nepro) 237 ML VANILLA PO SCH ×3 (09:22→17:51)
[2019-12-07] MEDS: levoTHYROXINE 75mcg tablet PO SCH (09:22)
[2019-12-07] MEDS: nystatin 15 GM powder TP SCH ×3 (09:22→20:37)
--- NOTE | 2019-12-07 09:46 | NUR ---
Dr. Moreno at bedside with patient and nurse. New orders Lasix TID, fluid restriction 1.5L, No labs today, after blood labs H and H, TIBC iron.
[2019-12-07 11:00] VITALS: BP 162/107
[2019-12-07 12:11] LABS: CREATINE KINASE 121 U/L (39-308)
[2019-12-07 15:00] VITALS: BP 137/69
--- NOTE | 2019-12-07 15:07 | NUR ---
1300 dose of Lasix PO 80mg scanned and given, recorded as given in eMAR. However, dose appeared as not given. Advised to record "nonadmin" and link note. Medication was indeed given to the patient.
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
[2019-12-07] MEDS: MESSAGE TO NURSING PO SCH (16:00)
[2019-12-07 17:43] LABS: HEMATOCRIT 26.1 % (42.0-52.0); HEMOGLOBIN 8.3 g/dl (14.0-17.9); MEAN CORPUSCULAR HEMOGLOBIN 32.6 PG (27.0-31.0); MEAN CORPUSCULAR HGB CONC 31.8 g/dL (33.0-36.5); MEAN CORPUSCULAR VOLUME 102.3 FL (78-98); MEAN PLATELET VOLUME 8.6 FL (7.4-10.4); PLATELET COUNT 171 X10'3 (140-440); RED BLOOD COUNT 2.55 X10'6 (4.70-6.10); WHITE BLOOD COUNT 6.7 X10'3 (4.5-11.0)
[2019-12-07 18:00] VITALS: BP 117/59
--- NOTE | 2019-12-07 18:00 | NUR ---
Received report and assumed pt care.
[2019-12-07 18:02] LABS: % IRON SATURATION 26 % (11-46); IRON 57 UG/DL (53-167); TOTAL IRON BINDING CAPACITY 222 UG/DL (259-388)
--- NOTE | 2019-12-07 18:04 | NUR ---
Problems reprioritized. Patient report given, questions answered & plan of care reviewed with Elena CERVANTES.
[2019-12-07 22:00] VITALS: BP 138/73
[2019-12-08] MEDS: ipratropium/albuterol 3ml nebule NEB SCH ×4 (02:42→20:20)
--- NOTE | 2019-12-08 06:32 | NUR ---
Patient in room PCU 3023. I have received report from Elena CERVANTES and had the opportunity to ask questions and assume patient care.
[2019-12-08 07:00] VITALS: BP 98/46
[2019-12-08] MEDS: diltiazem 30mg tablet PO SCH ×2 (08:00→20:00)
[2019-12-08] MEDS: docusate sod 100mg capsule PO SCH ×2 (08:00→19:57)
[2019-12-08] MEDS: NUT.TX.IMP.RENAL FXN,LAC-REDUC (Nepro) 237 ML VANILLA PO SCH ×3 (08:00→18:00)
[2019-12-08] MEDS: furosemide 40mg tablet PO SCH ×3 (08:00→19:57)
[2019-12-08] MEDS: amiodarone 200mg tablet PO SCH ×2 (08:00→20:00)
[2019-12-08] MEDS: heparin, porcine 5000 units/ml vial SQ SCH ×2 (08:25→19:56)
[2019-12-08] MEDS: thiamine 100mg tablet PO SCH ×2 (08:26→19:57)
[2019-12-08] MEDS: multivitamins, therapeutics tablet PO SCH (08:26)
[2019-12-08] MEDS: vitamin D (cholecalciferol) 1,000 unit tablet PO SCH (08:26)
[2019-12-08] MEDS: levoTHYROXINE 75mcg tablet PO SCH (08:26)
[2019-12-08] MEDS: folic acid 1mg tablet PO SCH (08:26)
[2019-12-08] MEDS: digoxin 125mcg (0.125mg) tablet PO SCH (08:28)
--- NOTE | 2019-12-08 08:40 | NUR ---
Spoke to Jw about change in patient condition. VS: BP 103/31, HR 112, temp oral, 100.3. MD aware of holding lasix and BP medications and that patient refused bipap last night. New orders ABG, KUB and a Chest xray. Will continue to monitor.
[2019-12-08] MEDS: nystatin 15 GM powder TP SCH ×3 (08:49→20:55)
[2019-12-08 09:16] LABS: ABG BASE EXCESS 3.4 mmol/L (-2.0-2.0); ABG HCO3 28.2 mmol/L (22.0-26.0); ABG OXYGEN SATURATION 94.9 % (94-97); ABG PCO2 (T) 43.7 mmHg (35.0-48.0); ABG PO2 (T) 79.1 mmHg (75.0-100.0); ALLEN'S TEST POSITIVE; FCOHb 1.4 % (0.0-3.9); FLOW 3 L/min; FMetHb 0.1 % (0.0-1.5); FO2Hb 93.5 % (94-97); TOTAL HEMOGLOBIN 8.7 G/dl (14.0-18.0)
[2019-12-08] MEDS ORDERED: midodrine 5mg tablet PO ONE (10:15)
[2019-12-08 10:26] LABS: ALANINE AMINOTRANSFERASE 51 U/L (12-78); ALBUMIN 2.4 G/DL (3.4-5.0); ALBUMIN/GLOBULIN RATIO 0.5 (1.1-1.5); ALKALINE PHOSPHATASE 326 IU/L (46-116); ANION GAP 5 (8-16); ASPARTATE AMINO TRANSFERASE 133 U/L (10-37); BILIRUBIN,TOTAL 1.3 MG/DL (0.1-1.0); BLOOD UREA NITROGEN 42 MG/DL (7-18); CHLORIDE 103 MMOL/L (99-107); GLUCOSE 101 MG/DL (70-104); SODIUM 138 MMOL/L (135-145); TOTAL CARBON DIOXIDE 29.6 MMOL/L (24-32); TOTAL PROTEIN 7.4 G/DL (6.4-8.2); eGFR 35 ML/MIN
[2019-12-08 10:30] LABS: POTASSIUM 4.9 MMOL/L (3.5-5.1)
[2019-12-08] MEDS ORDERED: sodium ferric gluc complex inj 125 MG in normal saline 100ml IV soln 90 ML IV SCH (10:30)
[2019-12-08] MEDS ORDERED: levoFLOXACIN 500mg tablet PO ONE (10:30)
[2019-12-08 11:00] VITALS: BP 112/58
--- NOTE | 2019-12-08 11:30 | NUR ---
Spoke with Dr. Escalera about new order for iron infusion and the start time. said that she wanted it to start today as orders said. I called Pharmacy and spoke with Niki to figure out why EMAR didnt resemble the order. The Storeroom Clerk told me to administer under unschedule time manually and make not. Pt received his infusion. Will continue to monitor.
[2019-12-08] MEDS: sodium ferric gluc complex inj 125 MG in normal saline 100ml IV soln 100 ML IV SCH (11:35)
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
[2019-12-08] MEDS: MESSAGE TO NURSING PO SCH (16:00)
[2019-12-08] MEDS: midodrine 5mg tablet PO SCH ×2 (16:50→23:31)
[2019-12-08 18:00] VITALS: BP 112/49
--- NOTE | 2019-12-08 18:29 | NUR ---
Problems reprioritized. Patient report given, questions answered & plan of care reviewed with Esther CERVANTES.
[2019-12-08 20:10] VITALS: BP 97/57
[2019-12-08 22:00] VITALS: BP 106/50
[2019-12-09 02:00] VITALS: BP 112/56
[2019-12-09] MEDS: ipratropium/albuterol 3ml nebule NEB SCH ×4 (03:26→19:48)
--- NOTE | 2019-12-09 06:44 | NUR ---
Problems reprioritized. Patient report given, questions answered & plan of care reviewed with HELEN Umana.
[2019-12-09 07:00] VITALS: BP 124/65
--- NOTE | 2019-12-09 07:18 | NUR ---
Patient in room PCU 3023. I have received report from HELEN Santana and had the opportunity to ask questions and assume patient care.
[2019-12-09] MEDS: vitamin D (cholecalciferol) 1,000 unit tablet PO SCH (07:31)
[2019-12-09] MEDS: amiodarone 200mg tablet PO SCH ×2 (07:31→19:45)
[2019-12-09] MEDS: thiamine 100mg tablet PO SCH ×2 (07:31→19:45)
[2019-12-09] MEDS: nystatin 15 GM powder TP SCH ×3 (07:31→21:15)
[2019-12-09] MEDS: heparin, porcine 5000 units/ml vial SQ SCH ×2 (07:31→19:44)
[2019-12-09] MEDS: levoTHYROXINE 75mcg tablet PO SCH (07:31)
[2019-12-09] MEDS: midodrine 5mg tablet PO SCH ×2 (07:31→16:16)
[2019-12-09] MEDS: digoxin 125mcg (0.125mg) tablet PO SCH (07:32)
[2019-12-09] MEDS: furosemide 40mg tablet PO SCH ×2 (07:32→19:45)
[2019-12-09] MEDS: folic acid 1mg tablet PO SCH (07:32)
[2019-12-09] MEDS: docusate sod 100mg capsule PO SCH ×2 (07:32→19:45)
[2019-12-09] MEDS: diltiazem 30mg tablet PO SCH ×2 (07:32→19:44)
[2019-12-09] MEDS: NUT.TX.IMP.RENAL FXN,LAC-REDUC (Nepro) 237 ML VANILLA PO SCH ×3 (07:33→17:55)
[2019-12-09] MEDS: multivitamins, therapeutics tablet PO SCH (07:33)
[2019-12-09 09:48] LABS: EOSINOPHILS # (AUTO) 0.1 X10'3 (0-0.9); MEAN CORPUSCULAR HGB CONC 33.1 g/dL (33.0-36.5); MEAN PLATELET VOLUME 8.4 FL (7.4-10.4); WHITE BLOOD COUNT 5.3 X10'3 (4.5-11.0)
[2019-12-09 09:50] LABS: BASOPHILS # (AUTO) 0.1 X10'3 (0-0.2); BASOPHILS % (AUTO) 1.1 % (0-1); HEMATOCRIT 22.5 % (42.0-52.0); HEMOGLOBIN 7.5 g/dl (14.0-17.9); LYMPHOCYTES # (AUTO) 0.9 X10'3 (1.1-4.8); LYMPHOCYTES % (AUTO) 16.6 % (21-51); MEAN CORPUSCULAR HEMOGLOBIN 33.6 PG (27.0-31.0); MEAN CORPUSCULAR VOLUME 101.5 FL (78-98); MONOCYTES # (AUTO) 0.3 X10'3 (0-0.9); MONOCYTES % (AUTO) 4.8 % (2-12); NEUTROPHILS % (AUTO) 75.5 % (42-75); PLATELET COUNT 181 X10'3 (140-440); RED BLOOD COUNT 2.22 X10'6 (4.70-6.10); RED CELL DISTRIBUTION WIDTH 16.3 % (11.5-14.5)
[2019-12-09 09:58] LABS: ALBUMIN 2.4 G/DL (3.4-5.0); ANION GAP 10 (8-16); BLOOD UREA NITROGEN 49 MG/DL (7-18); BUN/CREATININE RATIO 26.3 (5.4-32.0); CALCIUM 8.9 MG/DL (8.5-10.1); CHLORIDE 105 MMOL/L (99-107); CREATININE 1.86 MG/DL (0.60-1.10); GLUCOSE 126 MG/DL (70-104); POTASSIUM 3.6 MMOL/L (3.5-5.1); SODIUM 143 MMOL/L (135-145); eGFR 40 ML/MIN
[2019-12-09] MEDS: sodium ferric gluc complex inj 125 MG in normal saline 100ml IV soln 100 ML IV SCH (10:20)
[2019-12-09 11:00] VITALS: BP 106/53
[2019-12-09] MEDS ORDERED: levoFLOXACIN 250mg tablet PO SCH (11:00)
[2019-12-09 15:00] VITALS: BP 114/65
[2019-12-09] MEDS: MESSAGE TO NURSING PO SCH (16:19)
[2019-12-09 18:00] VITALS: BP 133/75
--- NOTE | 2019-12-09 18:21 | NUR ---
Problems reprioritized. Patient report given, questions answered & plan of care reviewed with HELEN Miner. Patient stable at transfer of care.
--- NOTE | 2019-12-09 19:08 | NUR ---
Patient in room PCU 3023. I have received report from Lyndsay CERVANTES and had the opportunity to ask questions and assume patient care.
[2019-12-09] MEDS: lactobacillus rhamnosus 10,000 MMU CELLS/CAPSULE PO SCH (19:45)
[2019-12-09 22:00] VITALS: BP 127/46
[2019-12-10] VITALS (14 sets, daily range): BP systolic 103–140; BP diastolic 48–61
[2019-12-10] MEDS: midodrine 5mg tablet PO SCH ×3 (00:30→16:07)
[2019-12-10] MEDS: ipratropium/albuterol 3ml nebule NEB SCH ×4 (03:39→20:40)
--- NOTE | 2019-12-10 06:29 | NUR ---
Problems reprioritized. Patient report given, questions answered & plan of care reviewed with Margaux CERVANTES.
--- NOTE | 2019-12-10 06:35 | NUR ---
Patient in room PCU 3023. I have received report from Roula CERVANTES and had the opportunity to ask questions and assume patient care.
[2019-12-10] MEDS: folic acid 1mg tablet PO SCH (07:43)
[2019-12-10] MEDS: levoTHYROXINE 75mcg tablet PO SCH (07:43)
[2019-12-10] MEDS: lactobacillus rhamnosus 10,000 MMU CELLS/CAPSULE PO SCH ×2 (07:43→20:48)
[2019-12-10] MEDS: diltiazem 30mg tablet PO SCH ×2 (07:43→20:48)
[2019-12-10] MEDS: amiodarone 200mg tablet PO SCH ×2 (07:43→20:48)
[2019-12-10] MEDS: furosemide 40mg tablet PO SCH ×2 (07:45→20:48)
[2019-12-10] MEDS: digoxin 125mcg (0.125mg) tablet PO SCH (07:45)
[2019-12-10] MEDS: vitamin D (cholecalciferol) 1,000 unit tablet PO SCH (07:45)
[2019-12-10] MEDS: NUT.TX.IMP.RENAL FXN,LAC-REDUC (Nepro) 237 ML VANILLA PO SCH ×3 (07:45→20:49)
[2019-12-10] MEDS: thiamine 100mg tablet PO SCH ×2 (07:45→20:48)
[2019-12-10] MEDS: multivitamins, therapeutics tablet PO SCH (07:45)
[2019-12-10] MEDS: heparin, porcine 5000 units/ml vial SQ SCH ×2 (07:46→20:48)
[2019-12-10] MEDS: nystatin 15 GM powder TP SCH ×3 (07:46→20:49)
[2019-12-10] MEDS: docusate sod 100mg capsule PO SCH ×2 (08:00→20:00)
[2019-12-10 09:11] LABS: EOSINOPHILS # (AUTO) 0.1 X10'3 (0-0.9); HEMATOCRIT 22.5 % (42.0-52.0); HEMOGLOBIN 7.4 g/dl (14.0-17.9)
[2019-12-10 09:12] LABS: BASOPHILS % (AUTO) 0.6 % (0-1); EOSINOPHILS % (AUTO) 1.8 % (0-6); LYMPHOCYTES # (AUTO) 0.5 X10'3 (1.1-4.8); LYMPHOCYTES % (AUTO) 7.6 % (21-51); MEAN CORPUSCULAR HEMOGLOBIN 32.5 PG (27.0-31.0); MEAN CORPUSCULAR HGB CONC 32.7 g/dL (33.0-36.5); MEAN CORPUSCULAR VOLUME 99.2 FL (78-98); MEAN PLATELET VOLUME 8.3 FL (7.4-10.4); MONOCYTES # (AUTO) 0.4 X10'3 (0-0.9); MONOCYTES % (AUTO) 6.2 % (2-12); NEUTROPHILS # (AUTO) 5.4 X10'3 (1.8-7.7); NEUTROPHILS % (AUTO) 83.8 % (42-75); PLATELET COUNT 198 X10'3 (140-440); RED BLOOD COUNT 2.27 X10'6 (4.70-6.10); RED CELL DISTRIBUTION WIDTH 16.3 % (11.5-14.5); WHITE BLOOD COUNT 6.5 X10'3 (4.5-11.0)
[2019-12-10 09:19] LABS: ALBUMIN 2.3 G/DL (3.4-5.0); ANION GAP 9 (8-16); BLOOD UREA NITROGEN 45 MG/DL (7-18); BUN/CREATININE RATIO 27.1 (5.4-32.0); CALCIUM 8.8 MG/DL (8.5-10.1); CHLORIDE 103 MMOL/L (99-107); CREATININE 1.66 MG/DL (0.60-1.10); GLUCOSE 139 MG/DL (70-104); POTASSIUM 3.5 MMOL/L (3.5-5.1); SODIUM 139 MMOL/L (135-145); TOTAL CARBON DIOXIDE 26.7 MMOL/L (24-32); eGFR 45 ML/MIN
[2019-12-10] MEDS ORDERED: sodium ferric gluc complex inj 125 MG in normal saline 100ml IV soln 100 ML IV ONE (09:20)
[2019-12-10 09:59] LABS: PLATELET ESTIMATE NORMAL; STOMATOCYTES 2+
[2019-12-10 10:02] LABS: POLYCHROMASIA 1+
[2019-12-10 10:03] LABS: ANISOCYTOSIS 1+; POIKILOCYTOSIS 1+
[2019-12-10] MEDS: MESSAGE TO NURSING PO SCH (16:00)
--- NOTE | 2019-12-10 18:00 | NUR ---
Problems reprioritized. Patient report given, questions answered & plan of care reviewed with Roula CERVANTES.
--- NOTE | 2019-12-10 18:19 | NUR ---
Patient in room PCU 3023. I have received report from Margaux CERVANTES and had the opportunity to ask questions and assume patient care.
[2019-12-10] MEDS: levoFLOXACIN 250mg tablet PO SCH (20:48)
[2019-12-11] MEDS: midodrine 5mg tablet PO SCH ×3 (01:09→16:27)
[2019-12-11 02:00] VITALS: BP 107/54
--- NOTE | 2019-12-11 02:10 | NUR ---
Have been in contact with [facility] throughout the night. They called earlier to say that they did have a bed opened up for the patient but they needed an amended discharge summary stating that the patient is stable for transfer. John Cobian was contacted and was able to do an addendum to the discharge summary stating that the patient can be transferred. This was faxed to [facility]. Then attempted to arrange transport. Contacts were made in the order that case management had instructed on the list that they left. [facility] was contacted and they said they would not be able to transport the patient until Tuesday. Then [facility] was contacted and they really expressed interest in being able to transport the patient but said that their bariatric stretcher was currently in the shop but should be ready by the morning and if we are still in need of transport at this time to please allow them the opportunity and they will call back in the morning to see if no other arrangements work out if the patient still needs to be transported they will try to accommodate. Then [facility] was contacted and they said that they will not be able to transport the patient because they cannot leave their area at this time in case they are needed there. Before [facility] was contacted back with this information they called here again stating that they actually do not have the bariatric bed yet and it is being delivered so they will need a few more hours and at this time they were informed that transport is still an issue and hopefully will be able to get arranged tomorrow so for now they are saving the bed.
[2019-12-11] MEDS: ipratropium/albuterol 3ml nebule NEB SCH ×4 (03:01→21:39)
--- NOTE | 2019-12-11 05:45 | NUR ---
[facility] transfer center just called and said that patient lost the bed there and they will try to get him a new one this morning.
--- NOTE | 2019-12-11 06:00 | NUR ---
Patient in room PCU 3023. I have received report from Roula CERVANTES and had the opportunity to ask questions and assume patient care.
--- NOTE | 2019-12-11 06:36 | NUR ---
Problems reprioritized. Patient report given, questions answered & plan of care reviewed with Margaux CERVANTES.
[2019-12-11 07:00] VITALS: BP 115/54
[2019-12-11] MEDS: diltiazem 30mg tablet PO SCH ×3 (07:40→21:25)
[2019-12-11] MEDS: amiodarone 200mg tablet PO SCH ×3 (07:40→21:25)
[2019-12-11] MEDS: lactobacillus rhamnosus 10,000 MMU CELLS/CAPSULE PO SCH ×3 (07:40→21:25)
[2019-12-11] MEDS: levoTHYROXINE 75mcg tablet PO SCH (07:40)
[2019-12-11] MEDS: furosemide 40mg tablet PO SCH ×3 (07:41→21:24)
[2019-12-11] MEDS: folic acid 1mg tablet PO SCH (07:41)
[2019-12-11] MEDS: digoxin 125mcg (0.125mg) tablet PO SCH (07:41)
[2019-12-11] MEDS: multivitamins, therapeutics tablet PO SCH (07:42)
[2019-12-11] MEDS: NUT.TX.IMP.RENAL FXN,LAC-REDUC (Nepro) 237 ML VANILLA PO SCH ×3 (07:42→21:24)
[2019-12-11] MEDS: vitamin D (cholecalciferol) 1,000 unit tablet PO SCH (07:42)
[2019-12-11] MEDS: thiamine 100mg tablet PO SCH ×3 (07:42→21:25)
[2019-12-11] MEDS: heparin, porcine 5000 units/ml vial SQ SCH ×3 (07:43→21:26)
[2019-12-11] MEDS: nystatin 15 GM powder TP SCH ×3 (07:43→21:00)
[2019-12-11] MEDS: docusate sod 100mg capsule PO SCH ×2 (08:00→19:17)
[2019-12-11 09:04] LABS: BASOPHILS % (AUTO) 0.8 % (0-1); EOSINOPHILS # (AUTO) 0.2 X10'3 (0-0.9); EOSINOPHILS % (AUTO) 3.1 % (0-6); HEMATOCRIT 25.9 % (42.0-52.0); HEMOGLOBIN 8.6 g/dl (14.0-17.9); LYMPHOCYTES # (AUTO) 0.9 X10'3 (1.1-4.8); LYMPHOCYTES % (AUTO) 17.3 % (21-51); MEAN CORPUSCULAR HEMOGLOBIN 32.4 PG (27.0-31.0); MEAN CORPUSCULAR HGB CONC 33.1 g/dL (33.0-36.5); MEAN CORPUSCULAR VOLUME 97.9 FL (78-98); MEAN PLATELET VOLUME 8.2 FL (7.4-10.4); MONOCYTES # (AUTO) 0.3 X10'3 (0-0.9); NEUTROPHILS # (AUTO) 3.8 X10'3 (1.8-7.7); NEUTROPHILS % (AUTO) 72.8 % (42-75); PLATELET COUNT 178 X10'3 (140-440); RED BLOOD COUNT 2.65 X10'6 (4.70-6.10); RED CELL DISTRIBUTION WIDTH 16.5 % (11.5-14.5); WHITE BLOOD COUNT 5.2 X10'3 (4.5-11.0)
[2019-12-11 09:11] LABS: ALBUMIN 2.5 G/DL (3.4-5.0); ANION GAP 5 (8-16); BLOOD UREA NITROGEN 36 MG/DL (7-18); BUN/CREATININE RATIO 26.1 (5.4-32.0); CALCIUM 8.9 MG/DL (8.5-10.1); CHLORIDE 103 MMOL/L (99-107); CREATININE 1.38 MG/DL (0.60-1.10); GLUCOSE 96 MG/DL (70-104); SODIUM 140 MMOL/L (135-145); TOTAL CARBON DIOXIDE 31.8 MMOL/L (24-32); eGFR 56 ML/MIN
--- NOTE | 2019-12-11 09:22 | NUR ---
Page Sent promotional table spacer PAGER ID: [phone] MESSAGE: [id number] Hardeep. Pt has critical potassium of 3.0. Brittany [phone]
--- NOTE | 2019-12-11 09:30 | NUR ---
I telephone Dr. Moreno to notify him of patient's critical potassium of 3.0. He gave me a telephone order for dyrenium 100mg PO TID. No other orders.
--- NOTE | 2019-12-11 09:44 | NUR ---
Called Dr. Moreno and received telephone order to put patient on potassium /magnesium replacement protocol for patient critical K of 3.0
[2019-12-11] MEDS ORDERED: potassium CL 10mEq/100ml bag 100 ML IV PRN (09:45)
[2019-12-11] MEDS ORDERED: magnesium Cl slow-release 64mg tablet PO PRN (09:45)
[2019-12-11] MEDS: K and/or MAG REPLACEMENT MC SCH ×2 (09:45→19:17)
[2019-12-11] MEDS ORDERED: magnesium 4gm in 100ml NS 100 ML IV PRN (09:45)
[2019-12-11] MEDS: sodium ferric gluc complex inj 125 MG in normal saline 100ml IV soln 100 ML IV SCH (10:48)
[2019-12-11] MEDS: potassium Cl 20 mEq SR tablet PO PRN ×3 (10:49→21:25)
--- NOTE | 2019-12-11 10:59 | NUR ---
I removed 40 meq of potassium from the omnicell. Patient refused several times after it was opened. Potassium was wasted in pharaceutical waste in room .
[2019-12-11 11:00] VITALS: BP 118/65
--- NOTE | 2019-12-11 13:21 | NUR ---
WHILE PLACING 3RD PIV FOR PATIENT HE STATED " TITS ARE NICE, LET'S TALK ABOUT THEM". I ADVISED PT NO WE CANNOT TALK ABOUT THAT AT THIS TIME. PT REPLIED " WELL TITS ARE NICE, OK WE WILL TALK ABOUT BALLS." I ADVISED PT WE ALSO ARE NOT TALKING ABOUT BALLS. Brinda BAKER PICC RN
[2019-12-11] MEDS: levoFLOXACIN 250mg tablet PO SCH ×2 (14:00→14:10)
--- NOTE | 2019-12-11 14:15 | NUR ---
Patient refusing all oral meds at this time Potassium , levofloxacin, and dyrenium. have been refused . Levofloaxacin was disposed of in pharmaceutical waste. Potassium was not pulled. Dyrenium was unavailable but requested from pharmacy. Will try to convince patient to take oral meds frequesntly
--- NOTE | 2019-12-11 14:19 | NUR ---
Patient refusing wound care at this time for panus and groin.
[2019-12-11 15:00] VITALS: BP 122/65
--- NOTE | 2019-12-11 16:11 | NUR ---
Follow up: Patient has a fair appetite. He is documented with confusion. Consistently eating average of 25-49% PO and drinking 75% of nepro with meals. Has improved from 0% ONS intake and 0-25% PO intake. Having routine BMs. Rec: 1. Continue renal diet, mechanical soft grind all diet per ST recs with 1.5L fluid restriction per MD 2. Consider diet liberalization to regular diet with texture modifications per ST recs in view of poor PO intake 3. Encourage PO intake; assist with meals 4. Nepro TIDWM 5. routine Thiamine, Folic acid, and MVI for etoh per MD 6. routine bowel care 7. Scaled weights per rx Addendum: 12/11/19 at [address] Amended: Links added.
--- NOTE | 2019-12-11 16:46 | NUR ---
Patient let me perform wound care on under side of pannus and his groin after refusing all day . Areas were cleaned with no rise cleansing spray and wiped clean of all nystatin and barrier cream. New nystatin was applied after cleansing and interdry sheets were placed under pannus and in groin. Patient also took first 40meq of potassium for the day and midodrine after refusing most po meds today except 8am med and iron.
[2019-12-11 18:00] VITALS: BP 130/67
--- NOTE | 2019-12-11 18:20 | NUR ---
Problems reprioritized. Patient report given, questions answered & plan of care reviewed with Roula CERVANTES.
--- NOTE | 2019-12-11 18:32 | NUR ---
Patient in room PCU 3023. I have received report from Margaux CERVANTES and had the opportunity to ask questions and assume patient care.
--- NOTE | 2019-12-11 21:59 | NUR ---
Patient refused all of his scheduled night time medications including his potassium replacement. He was extensively educated on the importance of taking the medications and even tried to get him to at least just take the most critical ones but he still refused. Another nurse attempted to talk to him about taking the medications as well and he refused for the resource nurse also. Unwrapped medications discarded and the ones that were still sealed were returned to the [facility].
[2019-12-11 22:00] VITALS: BP 151/69
--- NOTE | 2019-12-11 22:17 | NUR ---
attempted to help Roula CERVANTES encourage patient to take his meds. he absoluetely refused to do so. at first he thought it was the morning. Reoriented to current time and then he said he is just going to go to bed. Refused to even consider taking cardiac meds or potassium.
[2019-12-12] MEDS: midodrine 5mg tablet PO SCH
[2019-12-12 02:00] VITALS: BP 130/60
[2019-12-12] MEDS: ipratropium/albuterol 3ml nebule NEB SCH ×4 (03:00→20:00)
[2019-12-12 06:00] VITALS: BP 123/64
--- NOTE | 2019-12-12 06:30 | NUR ---
Patient in room PCU 3023. I have received report from HELEN Celeste and had the opportunity to ask questions and assume patient care.
--- NOTE | 2019-12-12 06:39 | NUR ---
Problems reprioritized. Patient report given, questions answered & plan of care reviewed with Carly CERVANTES.
[2019-12-12] MEDS: levoTHYROXINE 75mcg tablet PO SCH (07:00)
[2019-12-12] MEDS: nystatin 15 GM powder TP SCH ×3 (08:00→20:05)
[2019-12-12] MEDS: folic acid 1mg tablet PO SCH (08:00)
[2019-12-12] MEDS: digoxin 125mcg (0.125mg) tablet PO SCH (08:00)
[2019-12-12] MEDS: diltiazem 30mg tablet PO SCH ×2 (08:00→19:45)
[2019-12-12] MEDS: furosemide 40mg tablet PO SCH ×2 (08:00→19:44)
[2019-12-12] MEDS: heparin, porcine 5000 units/ml vial SQ SCH ×2 (08:00→19:45)
[2019-12-12] MEDS: docusate sod 100mg capsule PO SCH ×2 (08:00→19:46)
[2019-12-12] MEDS: NUT.TX.IMP.RENAL FXN,LAC-REDUC (Nepro) 237 ML VANILLA PO SCH ×3 (08:00→18:00)
[2019-12-12] MEDS: multivitamins, therapeutics tablet PO SCH (08:00)
[2019-12-12] MEDS: amiodarone 200mg tablet PO SCH ×2 (08:00→19:45)
[2019-12-12] MEDS: K and/or MAG REPLACEMENT MC SCH ×2 (08:00→19:46)
[2019-12-12] MEDS: lactobacillus rhamnosus 10,000 MMU CELLS/CAPSULE PO SCH ×2 (08:00→19:45)
[2019-12-12] MEDS: vitamin D (cholecalciferol) 1,000 unit tablet PO SCH (08:00)
[2019-12-12] MEDS: thiamine 100mg tablet PO SCH ×2 (08:00→19:45)
[2019-12-12 09:40] LABS: BASOPHILS % (AUTO) 1.1 % (0-1); EOSINOPHILS # (AUTO) 0.1 X10'3 (0-0.9); EOSINOPHILS % (AUTO) 3.2 % (0-6); HEMOGLOBIN 8.8 g/dl (14.0-17.9); LYMPHOCYTES # (AUTO) 0.7 X10'3 (1.1-4.8); LYMPHOCYTES % (AUTO) 17.5 % (21-51); MEAN CORPUSCULAR HEMOGLOBIN 31.9 PG (27.0-31.0); MEAN CORPUSCULAR HGB CONC 32.5 g/dL (33.0-36.5); MEAN PLATELET VOLUME 7.8 FL (7.4-10.4); MONOCYTES # (AUTO) 0.3 X10'3 (0-0.9); MONOCYTES % (AUTO) 7.1 % (2-12); NEUTROPHILS % (AUTO) 71.1 % (42-75); PLATELET COUNT 180 X10'3 (140-440); RED BLOOD COUNT 2.76 X10'6 (4.70-6.10); RED CELL DISTRIBUTION WIDTH 16.8 % (11.5-14.5); WHITE BLOOD COUNT 4.3 X10'3 (4.5-11.0)
[2019-12-12 10:16] LABS: ALBUMIN 2.4 G/DL (3.4-5.0); ANION GAP 7 (8-16); BLOOD UREA NITROGEN 29 MG/DL (7-18); BUN/CREATININE RATIO 26.4 (5.4-32.0); CALCIUM 9.1 MG/DL (8.5-10.1); CHLORIDE 106 MMOL/L (99-107); GLUCOSE 89 MG/DL (70-104); POTASSIUM 3.4 MMOL/L (3.5-5.1); SODIUM 143 MMOL/L (135-145); TOTAL CARBON DIOXIDE 29.9 MMOL/L (24-32); eGFR 73 ML/MIN
[2019-12-12 10:51] LABS: ABG BASE EXCESS 5.8 mmol/L (-2.0-2.0); ABG HCO3 30.2 mmol/L (22.0-26.0); ABG OXYGEN SATURATION 90.2 % (94-97); ABG PCO2 (T) 43.2 mmHg (35.0-48.0); ABG PO2 (T) 61.5 mmHg (75.0-100.0); ALLEN'S TEST POSITIVE; FCOHb 1.2 % (0.0-3.9); FO2Hb 89.1 % (94-97); TOTAL HEMOGLOBIN 10.7 G/dl (14.0-18.0)
--- NOTE | 2019-12-12 10:52 | NUR ---
PAGER ID: [phone] MESSAGE: [id number]. pt. William Craig. jesus. ANTONETTE results are back. thanks. Mary, [phone]
[2019-12-12 11:00] VITALS: BP 115/61
[2019-12-12 11:28] LABS: HEMOGLOBIN A1C 4.9 % (4.5-6.2)
[2019-12-12 11:54] LABS: ALANINE AMINOTRANSFERASE 47 U/L (12-78); ALBUMIN 2.4 G/DL (3.4-5.0); ALBUMIN/GLOBULIN RATIO 0.5 (1.1-1.5); ALKALINE PHOSPHATASE 281 IU/L (46-116); ANION GAP 5 (8-16); ASPARTATE AMINO TRANSFERASE 93 U/L (10-37); BILIRUBIN,TOTAL 1.4 MG/DL (0.1-1.0); BLOOD UREA NITROGEN 28 MG/DL (7-18); BUN/CREATININE RATIO 25.2 (5.4-32.0); CHLORIDE 107 MMOL/L (99-107); CREATININE 1.11 MG/DL (0.60-1.10); GLUCOSE 92 MG/DL (70-104); POTASSIUM 3.4 MMOL/L (3.5-5.1); SODIUM 144 MMOL/L (135-145); TOTAL CARBON DIOXIDE 31.6 MMOL/L (24-32); TOTAL PROTEIN 7.2 G/DL (6.4-8.2); eGFR 72 ML/MIN
[2019-12-12] MEDS: sodium ferric gluc complex inj 125 MG in normal saline 100ml IV soln 100 ML IV SCH (14:56)
[2019-12-12 15:00] VITALS: BP 129/64
--- NOTE | 2019-12-12 15:12 | NUR ---
PAGER ID: [phone] MESSAGE: [id number]. pt. HardeepWilliam. pt. Evelyne would like a call from you if you have a moment. she hasn't talked to a MD in days and is getting frustrated. if you could call [phone]. thank you, Mary [phone]
[2019-12-12] MEDS: levoFLOXACIN 250mg tablet PO SCH (15:58)
[2019-12-12 18:00] VITALS: BP 132/68
--- NOTE | 2019-12-12 18:38 | NUR ---
Problems reprioritized. Patient report given, questions answered & plan of care reviewed with HELEN Kumar.
--- NOTE | 2019-12-12 18:40 | NUR ---
Patient in room PCU 3023. I have received report from HELEN Hernandez and had the opportunity to ask questions and assume patient care.
[2019-12-12] MEDS: potassium Cl 20 mEq SR tablet PO PRN (19:45)
[2019-12-12 22:00] VITALS: BP 137/67
[2019-12-13] MEDS: potassium Cl 20 mEq SR tablet PO PRN ×4 (01:47→20:31)
[2019-12-13 02:00] VITALS: BP 139/57
[2019-12-13] MEDS: ipratropium/albuterol 3ml nebule NEB SCH ×4 (02:18→20:52)
[2019-12-13 06:00] VITALS: BP 136/76
--- NOTE | 2019-12-13 06:14 | NUR ---
Problems reprioritized. Patient report given, questions answered & plan of care reviewed with HELEN Stubbs.
--- NOTE | 2019-12-13 06:15 | NUR ---
Patient in room PCU 3023. I have received report from Brandi CERVANTES, and had the opportunity to ask questions and assume patient care.
[2019-12-13 07:15] LABS: BASOPHILS # (AUTO) 0.1 X10'3 (0-0.2); BASOPHILS % (AUTO) 1.2 % (0-1); EOSINOPHILS # (AUTO) 0.1 X10'3 (0-0.9); EOSINOPHILS % (AUTO) 2.8 % (0-6); HEMATOCRIT 26.5 % (42.0-52.0); HEMOGLOBIN 8.7 g/dl (14.0-17.9); LYMPHOCYTES # (AUTO) 0.8 X10'3 (1.1-4.8); LYMPHOCYTES % (AUTO) 15.9 % (21-51); MEAN CORPUSCULAR HEMOGLOBIN 32.4 PG (27.0-31.0); MEAN CORPUSCULAR HGB CONC 32.9 g/dL (33.0-36.5); MEAN CORPUSCULAR VOLUME 98.4 FL (78-98); MEAN PLATELET VOLUME 8.2 FL (7.4-10.4); MONOCYTES # (AUTO) 0.4 X10'3 (0-0.9); MONOCYTES % (AUTO) 8.4 % (2-12); NEUTROPHILS # (AUTO) 3.4 X10'3 (1.8-7.7); NEUTROPHILS % (AUTO) 71.7 % (42-75); PLATELET COUNT 179 X10'3 (140-440); RED BLOOD COUNT 2.69 X10'6 (4.70-6.10); RED CELL DISTRIBUTION WIDTH 16.6 % (11.5-14.5); WHITE BLOOD COUNT 4.7 X10'3 (4.5-11.0)
[2019-12-13 07:27] LABS: ALBUMIN 2.5 G/DL (3.4-5.0); ANION GAP 6 (8-16); BLOOD UREA NITROGEN 22 MG/DL (7-18); BUN/CREATININE RATIO 22.4 (5.4-32.0); CALCIUM 9.1 MG/DL (8.5-10.1); CHLORIDE 106 MMOL/L (99-107); CREATININE 0.98 MG/DL (0.60-1.10); GLUCOSE 95 MG/DL (70-104); POTASSIUM 3.3 MMOL/L (3.5-5.1); SODIUM 143 MMOL/L (135-145); eGFR 83 ML/MIN
[2019-12-13] MEDS: vitamin D (cholecalciferol) 1,000 unit tablet PO SCH (08:00)
[2019-12-13] MEDS: K and/or MAG REPLACEMENT MC SCH ×2 (08:00→20:00)
[2019-12-13] MEDS: nystatin 15 GM powder TP SCH ×3 (08:00→22:40)
[2019-12-13] MEDS: multivitamins, therapeutics tablet PO SCH (09:19)
[2019-12-13] MEDS: levoTHYROXINE 75mcg tablet PO SCH (09:20)
[2019-12-13] MEDS: furosemide 40mg tablet PO SCH ×2 (09:20→20:31)
[2019-12-13] MEDS: folic acid 1mg tablet PO SCH (09:20)
[2019-12-13] MEDS: docusate sod 100mg capsule PO SCH ×2 (09:20→20:00)
[2019-12-13] MEDS: diltiazem 30mg tablet PO SCH ×2 (09:20→20:30)
[2019-12-13] MEDS: amiodarone 200mg tablet PO SCH ×2 (09:21→20:30)
[2019-12-13] MEDS: digoxin 125mcg (0.125mg) tablet PO SCH (09:23)
[2019-12-13] MEDS: thiamine 100mg tablet PO SCH ×2 (09:24→20:30)
[2019-12-13] MEDS: lactobacillus rhamnosus 10,000 MMU CELLS/CAPSULE PO SCH ×2 (09:24→20:30)
--- NOTE | 2019-12-13 09:30 | NUR ---
When giving patient's morning medication's, patient's newly placed extended PIV was pulled from his left arm. The Right peripheral PIV remains intact. Dr. Browne was asked and did not want restraints or mitts to be placed on patient. Will continue to monitor.
[2019-12-13] MEDS: NUT.TX.IMP.RENAL FXN,LAC-REDUC (Nepro) 237 ML VANILLA PO SCH ×3 (09:36→18:00)
[2019-12-13] MEDS: sodium ferric gluc complex inj 125 MG in normal saline 100ml IV soln 100 ML IV SCH (10:10)
[2019-12-13] MEDS: heparin, porcine 5000 units/ml vial SQ SCH ×2 (10:12→20:33)
--- NOTE | 2019-12-13 11:02 | NUR ---
F/u (12/12): Pt PO fluctuating w/ ALOC AOx2. Past 5 days PO 25-50% avg meals vs up to 75% at times and PO 50-75% avg Nepro ONS w/ occasional refusals of both. Noted refused colace, synthroid, vitamin D, and MVI. Partially meeting needs given wt. LBM 12/11 w/ abdominal pain; mesenteric US reports pancreas obstructed by bowel gas per MD. Noted lipase 980 and amylase 190 on 11/24; RD d/w RN regarding recheck pancreatic enzymes if MD agreeable given current GI symptoms. Receiving lasix w/ negative [id number] fluid balance this admit. Given pt overall poor nutrition intake past week, severe weakness, and significant edema present meets severe malnutrition criteria at this time. MD notified. Not appropriate for written malnutrition ed given ALOC. Will continue to monitor for additional protein/kcal needs. Rec: 1. Continue renal diet, mechanical soft grind all diet per ST recs with 1.5L fluid restriction per MD 2. Consider diet liberalization to regular diet with texture modifications per ST recs in view of poor PO intake 3. Encourage PO intake; assist with meals 4. Nepro TIDWM 5. routine Thiamine, Folic acid, and MVI for etoh per MD 6. bowel care per rx 7. consider f/u pancreatic enzymes given previously elevated 11/24 8. Scaled weights per rx Addendum: 12/13/19 at [address] Amended: Links added.
--- NOTE | 2019-12-13 11:30 | NUR ---
PT PULLED OUT BOTH IV'S PLACED THIS AM, NEW LINE PLACED EMERGENTLY FOR PT TO TRANSPORT TO [facility] FOR OPEN MRI. PICC RN TO RIDE WITH PT IN CASE LINE IN PULLED OUT IN TRANSIT OR AT [facility].
--- NOTE | 2019-12-13 13:12 | NUR ---
PAGED DR DAVIDSON UPON RETURN FROM [facility] FOR OPEN MRI. PT WOULD NOT TOLERATE LAYING FLAT OR STILL DURING PROCEDURE, THE BRAIN MRI WAS COMPLETED BUT NO OTHER AREA. MULTIPLE ATTEMPTS MADE. AWAITING CALL BACK. TRE DURATE RN
--- NOTE | 2019-12-13 13:38 | NUR ---
SPOKE WITH DR DAVIDSON, PER MD MCKEON TO ORDER WRIST RESTRAINTS FOR PATIENT. ALSO UPDATED HIM ON THE STATUS OF THE EXAM AND PTS INABILITY TO TOLERATE LAYING FLAT AND HIS REFUSAL TO CONTINUE WITH SCAN. TRE PICC RN
[2019-12-13] MEDS: levoFLOXACIN 250mg tablet PO SCH (13:53)
--- NOTE | 2019-12-13 14:30 | NUR ---
PAGER ID: [phone] MESSAGE: Re: William Meier. [id number]. Pt. pulled IV out prior to Ferlicit injection was fully administered, prior to MRI. Evelyne Aguilar #[phone]
[2019-12-13 15:00] VITALS: BP 132/79
[2019-12-13 18:00] VITALS: BP 105/45
--- NOTE | 2019-12-13 18:26 | NUR ---
Patient in room PCU 3023. I have received report from Evelyne CERVANTES and had the opportunity to ask questions and assume patient care.
[2019-12-13 22:00] VITALS: BP 117/43
[2019-12-13] MEDS ORDERED: morphine 2 MG/ML inj. syringe IV PRN (22:30)
[2019-12-13] MEDS: traMADol 50MG tablet PO PRN (22:39)
[2019-12-14 02:00] VITALS: BP 110/48
[2019-12-14] MEDS: traMADol 50MG tablet PO PRN (02:43)
[2019-12-14] MEDS: potassium Cl 20 mEq SR tablet PO PRN ×3 (02:43→23:10)
[2019-12-14] MEDS: ipratropium/albuterol 3ml nebule NEB SCH ×4 (02:55→20:39)
[2019-12-14 06:00] VITALS: BP 129/64
--- NOTE | 2019-12-14 06:25 | NUR ---
Problems reprioritized. Patient report given, questions answered & plan of care reviewed with Mariela Doevr.
[2019-12-14] MEDS: furosemide 40mg tablet PO SCH ×2 (07:51→19:50)
[2019-12-14] MEDS: vitamin D (cholecalciferol) 1,000 unit tablet PO SCH (07:51)
[2019-12-14] MEDS: lactobacillus rhamnosus 10,000 MMU CELLS/CAPSULE PO SCH ×2 (07:51→19:50)
[2019-12-14] MEDS: amiodarone 200mg tablet PO SCH ×2 (07:51→19:49)
[2019-12-14] MEDS: diltiazem 30mg tablet PO SCH ×2 (07:51→19:49)
[2019-12-14] MEDS: heparin, porcine 5000 units/ml vial SQ SCH ×2 (07:52→19:50)
[2019-12-14] MEDS: digoxin 125mcg (0.125mg) tablet PO SCH (07:52)
[2019-12-14] MEDS: multivitamins, therapeutics tablet PO SCH (07:52)
[2019-12-14] MEDS: thiamine 100mg tablet PO SCH ×2 (07:52→19:50)
[2019-12-14] MEDS: levoTHYROXINE 75mcg tablet PO SCH (07:52)
[2019-12-14] MEDS: folic acid 1mg tablet PO SCH (07:52)
[2019-12-14] MEDS: NUT.TX.IMP.RENAL FXN,LAC-REDUC (Nepro) 237 ML VANILLA PO SCH ×3 (07:53→18:00)
[2019-12-14] MEDS: nystatin 15 GM powder TP SCH ×3 (07:53→19:50)
[2019-12-14] MEDS: K and/or MAG REPLACEMENT MC SCH ×2 (08:00→20:00)
[2019-12-14] MEDS: docusate sod 100mg capsule PO SCH ×2 (08:00→19:50)
--- NOTE | 2019-12-14 08:40 | NUR ---
RECEIVED REPORT AND ASSUMED CARE . PATIENT is obtunded at this time. HOB up, soft wrist restraints on bilaterally. 22 [address]ess[address] sl at lt fa with haylee wrap . PATIENT WILL OPEN EYES FOR SHORT TIME; HOWEVER, UNABLE TO GIVE VERBAL RESPONSE AT THIS TIME. Addendum: 12/14/19 at 1651 by Marychuy Bhandari RN Amended: Links added.
[2019-12-14 08:58] LABS: BASOPHILS # (AUTO) 0.1 X10'3 (0-0.2); BASOPHILS % (AUTO) 1.2 % (0-1); EOSINOPHILS # (AUTO) 0.2 X10'3 (0-0.9); EOSINOPHILS % (AUTO) 2.8 % (0-6); HEMATOCRIT 25.3 % (42.0-52.0); HEMOGLOBIN 8.3 g/dl (14.0-17.9); LYMPHOCYTES # (AUTO) 0.9 X10'3 (1.1-4.8); LYMPHOCYTES % (AUTO) 16.1 % (21-51); MEAN CORPUSCULAR HGB CONC 32.6 g/dL (33.0-36.5); MEAN CORPUSCULAR VOLUME 97.9 FL (78-98); MEAN PLATELET VOLUME 8.1 FL (7.4-10.4); MONOCYTES # (AUTO) 0.5 X10'3 (0-0.9); MONOCYTES % (AUTO) 8.8 % (2-12); NEUTROPHILS # (AUTO) 3.9 X10'3 (1.8-7.7); NEUTROPHILS % (AUTO) 71.1 % (42-75); PLATELET COUNT 166 X10'3 (140-440); RED BLOOD COUNT 2.58 X10'6 (4.70-6.10); RED CELL DISTRIBUTION WIDTH 16.1 % (11.5-14.5); WHITE BLOOD COUNT 5.4 X10'3 (4.5-11.0)
[2019-12-14 09:06] LABS: ALANINE AMINOTRANSFERASE 43 U/L (12-78); ALBUMIN 2.5 G/DL (3.4-5.0); ALBUMIN/GLOBULIN RATIO 0.6 (1.1-1.5); ALKALINE PHOSPHATASE 256 IU/L (46-116); ANION GAP 6 (8-16); ASPARTATE AMINO TRANSFERASE 92 U/L (10-37); BLOOD UREA NITROGEN 18 MG/DL (7-18); BUN/CREATININE RATIO 16.2 (5.4-32.0); CALCIUM 8.9 MG/DL (8.5-10.1); CHLORIDE 105 MMOL/L (99-107); CREATININE 1.11 MG/DL (0.60-1.10); GLUCOSE 99 MG/DL (70-104); POTASSIUM 3.2 MMOL/L (3.5-5.1); SODIUM 142 MMOL/L (135-145); TOTAL CARBON DIOXIDE 30.9 MMOL/L (24-32); TOTAL PROTEIN 6.8 G/DL (6.4-8.2); eGFR 72 ML/MIN
[2019-12-14 09:38] LABS: RHEUM FACTOR QUAL REFLEX TITER NEGATIVE (Neg)
[2019-12-14 11:00] VITALS: BP 132/54
[2019-12-14] MEDS: levoFLOXACIN 250mg tablet PO SCH (14:51)
[2019-12-14 15:00] VITALS: BP 126/66
--- NOTE | 2019-12-14 16:00 | NUR ---
Patient in room PCU 3023. I have received report from Pat RN and had the opportunity to ask questions and assume patient care. Yeny MUNGUIA at nursing station during report and gave orders to discontinue restraints. Pt. seen at bedside by outgoing and incoming nurse. Restraints removed. Pt. still obtunded as mentioned in report.
--- NOTE | 2019-12-14 16:30 | NUR ---
DR. SMILEY IN ORDERED TO DC RESTRAINTS. RESTRAINTS DC'D AT THIS TIME. Addendum: 12/14/19 at 1705 by Marychuy Bhandari RN Amended: Links added.
--- NOTE | 2019-12-14 16:30 | NUR ---
Discussed restraint status at nurses station. Per Dr. Saini patient no longer needs restraints. Restraints removed with Pat RN at bedside
[2019-12-14] MEDS ORDERED: potassium CL 10mEq/100ml bag 100 ML IV PRN ×2 (17:20)
[2019-12-14] MEDS ORDERED: potassium Cl 20 mEq SR tablet PO PRN (17:20)
[2019-12-14 18:00] VITALS: BP 130/65
--- NOTE | 2019-12-14 18:34 | NUR ---
Problems reprioritized. Patient report given, questions answered & plan of care reviewed with Nelda CERVANTES.
[2019-12-14 22:00] VITALS: BP 114/54
[2019-12-15] VITALS (7 sets, daily range): BP systolic 114–149; BP diastolic 54–80
[2019-12-15] MEDS: ipratropium/albuterol 3ml nebule NEB SCH ×4 (02:39→20:39)
--- NOTE | 2019-12-15 06:20 | NUR ---
Patient in room PCU 3023. I have received report from Nelda CERVANTES and had the opportunity to ask questions and assume patient care.
[2019-12-15 06:30] LABS: BASOPHILS % (AUTO) 0.7 % (0-1); EOSINOPHILS # (AUTO) 0.1 X10'3 (0-0.9); EOSINOPHILS % (AUTO) 2.7 % (0-6); HEMATOCRIT 25.7 % (42.0-52.0); HEMOGLOBIN 8.4 g/dl (14.0-17.9); LYMPHOCYTES % (AUTO) 20.6 % (21-51); MEAN CORPUSCULAR HEMOGLOBIN 32.1 PG (27.0-31.0); MEAN CORPUSCULAR HGB CONC 32.8 g/dL (33.0-36.5); MEAN CORPUSCULAR VOLUME 97.8 FL (78-98); MEAN PLATELET VOLUME 8.3 FL (7.4-10.4); MONOCYTES # (AUTO) 0.4 X10'3 (0-0.9); MONOCYTES % (AUTO) 8.3 % (2-12); NEUTROPHILS # (AUTO) 3.2 X10'3 (1.8-7.7); NEUTROPHILS % (AUTO) 67.7 % (42-75); PLATELET COUNT 160 X10'3 (140-440); RED BLOOD COUNT 2.62 X10'6 (4.70-6.10); RED CELL DISTRIBUTION WIDTH 16.3 % (11.5-14.5); WHITE BLOOD COUNT 4.8 X10'3 (4.5-11.0)
--- NOTE | 2019-12-15 06:31 | NUR ---
Problems reprioritized. Patient report given, questions answered & plan of care reviewed with Evelyne CERVANTES.
[2019-12-15 06:48] LABS: ALANINE AMINOTRANSFERASE 43 U/L (12-78); ALBUMIN 2.5 G/DL (3.4-5.0); ALBUMIN/GLOBULIN RATIO 0.5 (1.1-1.5); ALKALINE PHOSPHATASE 265 IU/L (46-116); ANION GAP 9 (8-16); ASPARTATE AMINO TRANSFERASE 98 U/L (10-37); BILIRUBIN,TOTAL 2.2 MG/DL (0.1-1.0); BLOOD UREA NITROGEN 18 MG/DL (7-18); BUN/CREATININE RATIO 16.5 (5.4-32.0); CALCIUM 8.9 MG/DL (8.5-10.1); CHLORIDE 105 MMOL/L (99-107); CREATININE 1.09 MG/DL (0.60-1.10); GLUCOSE 91 MG/DL (70-104); POTASSIUM 3.5 MMOL/L (3.5-5.1); SODIUM 144 MMOL/L (135-145); TOTAL CARBON DIOXIDE 30.1 MMOL/L (24-32); TOTAL PROTEIN 7.1 G/DL (6.4-8.2); eGFR 74 ML/MIN
--- NOTE | 2019-12-15 07:45 | NUR ---
Entered room this morning to find patient on right side of bed, chcf onto his right side, with HOB less than 30 degrees. Patient was attempting to sit up but was unable too. With the help of 2 other RN's, 1 DRILL SETUP OPERATOR, and the hover mat; we were able to have the patient sit up right with HOB elevated. Patient incoherent and confused; o2 saturations were performed which showed that his saturation level's were fluctuating from 91 to 85. Notified the charge nurse of patient's condition and was recommended to place patient on 2L NC.
[2019-12-15] MEDS: docusate sod 100mg capsule PO SCH ×3 (08:00→20:39)
[2019-12-15] MEDS: NUT.TX.IMP.RENAL FXN,LAC-REDUC (Nepro) 237 ML VANILLA PO SCH ×3 (08:00→18:00)
[2019-12-15] MEDS: nystatin 15 GM powder TP SCH ×3 (08:00→20:43)
[2019-12-15] MEDS: K and/or MAG REPLACEMENT MC SCH ×2 (08:00→20:00)
[2019-12-15] MEDS: amiodarone 200mg tablet PO SCH ×2 (08:00→20:42)
[2019-12-15] MEDS: levoTHYROXINE 75mcg tablet PO SCH (11:11)
[2019-12-15] MEDS: furosemide 40mg tablet PO SCH ×2 (11:11→20:42)
[2019-12-15] MEDS: diltiazem 30mg tablet PO SCH ×2 (11:11→20:38)
[2019-12-15] MEDS: digoxin 125mcg (0.125mg) tablet PO SCH (11:12)
[2019-12-15 11:16] LABS: ABG BASE EXCESS 8.3 mmol/L (-2.0-2.0); ABG HCO3 33.3 mmol/L (22.0-26.0); ABG OXYGEN SATURATION 94.6 % (94-97); ABG PCO2 (T) 49.1 mmHg (35.0-48.0); ABG PO2 (T) 73.3 mmHg (75.0-100.0); ALLEN'S TEST POSITIVE; FCOHb 1.4 % (0.0-3.9); FMetHb 0.4 % (0.0-1.5); FO2Hb 92.9 % (94-97); RESPIRATORY RATE 12 b/min; TOTAL HEMOGLOBIN 8.8 G/dl (14.0-18.0)
[2019-12-15] MEDS: multivitamins, therapeutics tablet PO SCH ×2 (11:16→14:50)
[2019-12-15] MEDS: folic acid 1mg tablet PO SCH (11:16)
[2019-12-15] MEDS: thiamine 100mg tablet PO SCH ×2 (11:17→14:50)
[2019-12-15] MEDS: heparin, porcine 5000 units/ml vial SQ SCH ×2 (11:26→20:43)
--- NOTE | 2019-12-15 11:36 | NUR ---
PAGER ID: [phone] MESSAGE: Re: William Meier [id number]. ABG resulted. Patient took PO medications excluding probiotic and some vitamins. Evelyne Aguilar, #[phone]
[2019-12-15] MEDS: levoFLOXACIN 250mg tablet PO SCH (14:50)
[2019-12-15] MEDS: vitamin D (cholecalciferol) 1,000 unit tablet PO SCH (14:50)
[2019-12-15] MEDS: lactobacillus rhamnosus 10,000 MMU CELLS/CAPSULE PO SCH ×2 (14:51→20:42)
--- NOTE | 2019-12-15 18:25 | NUR ---
Problems reprioritized. Patient report given, questions answered & plan of care reviewed with HELEN Lutz.
[2019-12-16 02:00] VITALS: BP 129/56
[2019-12-16] MEDS: ipratropium/albuterol 3ml nebule NEB SCH ×4 (02:31→20:52)
--- NOTE | 2019-12-16 06:00 | NUR ---
Patient in room PCU 3023. I have received report from Nelda CERVANTES and had the opportunity to ask questions and assume patient care.
--- NOTE | 2019-12-16 06:16 | NUR ---
Problems reprioritized. Patient report given, questions answered & plan of care reviewed with Margaux CERVANTES.
[2019-12-16 07:00] VITALS: BP 134/67
[2019-12-16] MEDS: amiodarone 200mg tablet PO SCH ×2 (07:58→20:07)
[2019-12-16] MEDS: lactobacillus rhamnosus 10,000 MMU CELLS/CAPSULE PO SCH ×2 (07:58→20:06)
[2019-12-16] MEDS: levoTHYROXINE 75mcg tablet PO SCH (07:58)
[2019-12-16] MEDS: diltiazem 30mg tablet PO SCH ×2 (07:58→20:04)
[2019-12-16] MEDS: folic acid 1mg tablet PO SCH (07:58)
[2019-12-16] MEDS: furosemide 40mg tablet PO SCH ×2 (07:59→20:06)
[2019-12-16] MEDS: thiamine 100mg tablet PO SCH ×2 (07:59→20:07)
[2019-12-16] MEDS: digoxin 125mcg (0.125mg) tablet PO SCH (07:59)
[2019-12-16] MEDS: nystatin 15 GM powder TP SCH ×3 (08:00→21:00)
[2019-12-16] MEDS: heparin, porcine 5000 units/ml vial SQ SCH ×2 (08:00→20:08)
[2019-12-16] MEDS: K and/or MAG REPLACEMENT MC SCH ×2 (08:00→20:09)
[2019-12-16] MEDS: NUT.TX.IMP.RENAL FXN,LAC-REDUC (Nepro) 237 ML VANILLA PO SCH ×3 (08:00→18:00)
[2019-12-16] MEDS: docusate sod 100mg capsule PO SCH ×2 (08:00→20:00)
[2019-12-16] MEDS: vitamin D (cholecalciferol) 1,000 unit tablet PO SCH (08:03)
--- NOTE | 2019-12-16 09:08 | NUR ---
I walked in on patient eating calazime cream. He had his mouth full of it and it covered his tongue. I am not sure how much he ate but the tube is about 3/4 full. I called poison control and they advised supportive care and drinking plenty of fluids. Nausea, vomiting, and diarrhea may be expected depending on amount eaten per poison control. They advised closely monitoring patient.
[2019-12-16 11:00] VITALS: BP 125/54
[2019-12-16 11:17] LABS: BASOPHILS # (AUTO) 0.1 X10'3 (0-0.2); BASOPHILS % (AUTO) 1.6 % (0-1); EOSINOPHILS # (AUTO) 0.1 X10'3 (0-0.9); EOSINOPHILS % (AUTO) 2.7 % (0-6); HEMATOCRIT 25.9 % (42.0-52.0); HEMOGLOBIN 8.6 g/dl (14.0-17.9); LYMPHOCYTES # (AUTO) 1.1 X10'3 (1.1-4.8); LYMPHOCYTES % (AUTO) 22.9 % (21-51); MEAN CORPUSCULAR HEMOGLOBIN 32.3 PG (27.0-31.0); MEAN CORPUSCULAR HGB CONC 33.3 g/dL (33.0-36.5); MEAN CORPUSCULAR VOLUME 97.1 FL (78-98); MONOCYTES # (AUTO) 0.4 X10'3 (0-0.9); MONOCYTES % (AUTO) 7.7 % (2-12); NEUTROPHILS % (AUTO) 65.1 % (42-75); PLATELET COUNT 157 X10'3 (140-440); RED BLOOD COUNT 2.67 X10'6 (4.70-6.10); WHITE BLOOD COUNT 4.7 X10'3 (4.5-11.0)
[2019-12-16 11:27] LABS: ALANINE AMINOTRANSFERASE 40 U/L (12-78); ALBUMIN 2.6 G/DL (3.4-5.0); ALBUMIN/GLOBULIN RATIO 0.6 (1.1-1.5); ALKALINE PHOSPHATASE 256 IU/L (46-116); ANION GAP 8 (8-16); ASPARTATE AMINO TRANSFERASE 86 U/L (10-37); BILIRUBIN,TOTAL 2.1 MG/DL (0.1-1.0); BLOOD UREA NITROGEN 18 MG/DL (7-18); BUN/CREATININE RATIO 16.4 (5.4-32.0); CALCIUM 9.4 MG/DL (8.5-10.1); CHLORIDE 101 MMOL/L (99-107); GLUCOSE 96 MG/DL (70-104); POTASSIUM 3.3 MMOL/L (3.5-5.1); SODIUM 140 MMOL/L (135-145); TOTAL CARBON DIOXIDE 31.5 MMOL/L (24-32); TOTAL PROTEIN 7.2 G/DL (6.4-8.2); eGFR 73 ML/MIN
[2019-12-16 15:00] VITALS: BP 120/64
[2019-12-16] MEDS: potassium Cl 20 mEq SR tablet PO PRN ×2 (15:11→20:15)
[2019-12-16 18:00] VITALS: BP 121/55
--- NOTE | 2019-12-16 18:34 | NUR ---
Problems reprioritized. Patient report given, questions answered & plan of care reviewed with Kelsea CERVANTES.
[2019-12-16] MEDS: traMADol 50MG tablet PO PRN (20:02)
[2019-12-16 22:00] VITALS: BP 111/60
[2019-12-17 02:00] VITALS: BP 117/61
[2019-12-17] MEDS: ipratropium/albuterol 3ml nebule NEB SCH ×4 (03:07→21:12)
--- NOTE | 2019-12-17 06:00 | NUR ---
Patient in room PCU 3023. I have received report from Kelsea CERVANTES and had the opportunity to ask questions and assume patient care.
[2019-12-17 06:25] LABS: BASOPHILS % (AUTO) 0.9 % (0-1); EOSINOPHILS # (AUTO) 0.2 X10'3 (0-0.9); HEMATOCRIT 28.6 % (42.0-52.0); HEMOGLOBIN 9.6 g/dl (14.0-17.9); LYMPHOCYTES # (AUTO) 1.1 X10'3 (1.1-4.8); MEAN CORPUSCULAR HEMOGLOBIN 32.6 PG (27.0-31.0); MEAN CORPUSCULAR HGB CONC 33.5 g/dL (33.0-36.5); MEAN CORPUSCULAR VOLUME 97.4 FL (78-98); MEAN PLATELET VOLUME 8.4 FL (7.4-10.4); MONOCYTES # (AUTO) 0.5 X10'3 (0-0.9); MONOCYTES % (AUTO) 10.6 % (2-12); NEUTROPHILS # (AUTO) 3.2 X10'3 (1.8-7.7); NEUTROPHILS % (AUTO) 63.5 % (42-75); PLATELET COUNT 152 X10'3 (140-440); RED BLOOD COUNT 2.94 X10'6 (4.70-6.10); RED CELL DISTRIBUTION WIDTH 16.4 % (11.5-14.5); WHITE BLOOD COUNT 5.1 X10'3 (4.5-11.0)
--- NOTE | 2019-12-17 06:30 | NUR ---
Problems reprioritized. Patient report given, questions answered & plan of care reviewed with SEEMA CERVANTES.
[2019-12-17 06:49] LABS: ALANINE AMINOTRANSFERASE 37 U/L (12-78); ALBUMIN 2.9 G/DL (3.4-5.0); ALBUMIN/GLOBULIN RATIO 0.6 (1.1-1.5); ALKALINE PHOSPHATASE 268 IU/L (46-116); ANION GAP 7 (8-16); ASPARTATE AMINO TRANSFERASE 93 U/L (10-37); BILIRUBIN,TOTAL 2.2 MG/DL (0.1-1.0); BLOOD UREA NITROGEN 18 MG/DL (7-18); BUN/CREATININE RATIO 17.6 (5.4-32.0); CALCIUM 9.6 MG/DL (8.5-10.1); CHLORIDE 102 MMOL/L (99-107); CREATININE 1.02 MG/DL (0.60-1.10); GLUCOSE 89 MG/DL (70-104); POTASSIUM 3.6 MMOL/L (3.5-5.1); SODIUM 140 MMOL/L (135-145); TOTAL CARBON DIOXIDE 30.7 MMOL/L (24-32); TOTAL PROTEIN 7.8 G/DL (6.4-8.2); eGFR 80 ML/MIN
[2019-12-17 07:00] VITALS: BP 102/67
[2019-12-17] MEDS: levoTHYROXINE 75mcg tablet PO SCH (07:00)
[2019-12-17] MEDS: NUT.TX.IMP.RENAL FXN,LAC-REDUC (Nepro) 237 ML VANILLA PO SCH ×3 (07:25→18:00)
[2019-12-17] MEDS: amiodarone 200mg tablet PO SCH ×2 (08:00→20:23)
[2019-12-17] MEDS: digoxin 125mcg (0.125mg) tablet PO SCH (08:00)
[2019-12-17] MEDS: docusate sod 100mg capsule PO SCH ×2 (08:00→20:06)
[2019-12-17] MEDS: nystatin 15 GM powder TP SCH ×3 (08:00→20:30)
[2019-12-17] MEDS: furosemide 40mg tablet PO SCH ×2 (08:00→20:06)
[2019-12-17] MEDS: vitamin D (cholecalciferol) 1,000 unit tablet PO SCH (08:00)
[2019-12-17] MEDS: thiamine 100mg tablet PO SCH ×2 (08:00→20:06)
[2019-12-17] MEDS: lactobacillus rhamnosus 10,000 MMU CELLS/CAPSULE PO SCH ×2 (08:00→20:06)
[2019-12-17] MEDS: heparin, porcine 5000 units/ml vial SQ SCH ×2 (08:00→20:06)
[2019-12-17] MEDS: diltiazem 30mg tablet PO SCH ×2 (08:00→20:23)
[2019-12-17] MEDS: K and/or MAG REPLACEMENT MC SCH ×2 (08:00→20:07)
[2019-12-17] MEDS: multivitamins, therapeutics tablet PO SCH (08:00)
[2019-12-17] MEDS: folic acid 1mg tablet PO SCH (08:00)
[2019-12-17 11:00] VITALS: BP 149/68
--- NOTE | 2019-12-17 13:35 | NUR ---
F/u (12/16): Pt poor PO 9 days now including ONS not meeting nutrition needs. Continues to refuse ONS as well; VIC bowers RN regarding cancelling ONS given pt refusals if MD agreeable. Pt noted to have eaten lotion w/ poison control contacted per MD note. VIC [email or web address] regarding poor nutrition status w/ ALOC AOx2 nutrition support clinically indicated at this time given malnutrition status. MD declines corpak EN at this time since would require restraints for pt; pt currently refusing all PO meds. RN reports pt has sitter at bedside and sitter has been notified to continue encouraging/assisting w/ PO at meal times. RN reports pt pulling at lines persistently. Moderate BM 12/15. Significant edema still present. Will continue to monitor. Rec: 1. Continue renal diet, mechanical soft grind all diet per ST recs with 1.5L fluid restriction per MD 2. Consider diet liberalization to regular diet with texture modifications per ST recs in view of poor PO intake 3. Encourage PO intake; assist with meals 4. Nepro TIDWM; cancel if MD agreeable in view of refusing 5. routine Thiamine, Folic acid, and MVI for etoh per MD; consider IV if continues refusing PO 6. bowel care per rx 7. IF EN nutrition support via corpak; Vital HP at 90ml/hr goal 8. consider f/u pancreatic enzymes given previously elevated 11/24 9. Weekly wts Addendum: 12/17/19 at [address] Amended: Links added.
[2019-12-17 15:00] VITALS: BP 101/49
[2019-12-17 18:00] VITALS: BP 108/54
--- NOTE | 2019-12-17 18:00 | NUR ---
Problems reprioritized. Patient report given, questions answered & plan of care reviewed with Omari RN.
--- NOTE | 2019-12-17 18:30 | NUR ---
Patient in room PCU 3023. I have received report from Brittany CERVANTES and had the opportunity to ask questions and assume patient care.
[2019-12-17 22:00] VITALS: BP 112/50
[2019-12-18] MEDS: traMADol 50MG tablet PO PRN ×2 (01:17→07:47)
--- NOTE | 2019-12-18 01:20 | NUR ---
pt states "i think it would be hilarious if i fell (purposefully) out of bed". when asked why he stated "im want to go home". education provided to pt about personal safety and that we are trying to get him better so that he can go home/discharge from this facility. pt does have a sitter, sitter informed to keep a close eye on him and to prevent him from getting himself out of bed as possible and to call for help if needed. due to pt size he moves slow but would easily overpower the sitter. will continue to monitor, frequent rounding by nurse.
[2019-12-18 02:00] VITALS: BP 111/50
[2019-12-18] MEDS: ipratropium/albuterol 3ml nebule NEB SCH ×4 (03:07→20:42)
[2019-12-18 06:10] LABS: ALANINE AMINOTRANSFERASE 34 U/L (12-78); ALBUMIN 2.5 G/DL (3.4-5.0); ALBUMIN/GLOBULIN RATIO 0.6 (1.1-1.5); ALKALINE PHOSPHATASE 224 IU/L (46-116); ANION GAP 4 (8-16); ASPARTATE AMINO TRANSFERASE 83 U/L (10-37); BASOPHILS # (AUTO) 0.1 X10'3 (0-0.2); BASOPHILS % (AUTO) 1.1 % (0-1); BILIRUBIN,TOTAL 1.6 MG/DL (0.1-1.0); BLOOD UREA NITROGEN 17 MG/DL (7-18); BUN/CREATININE RATIO 15.6 (5.4-32.0); CALCIUM 9.1 MG/DL (8.5-10.1); CHLORIDE 103 MMOL/L (99-107); CREATININE 1.09 MG/DL (0.60-1.10); EOSINOPHILS # (AUTO) 0.1 X10'3 (0-0.9); EOSINOPHILS % (AUTO) 2.7 % (0-6); GLUCOSE 90 MG/DL (70-104); HEMATOCRIT 22.9 % (42.0-52.0); HEMOGLOBIN 7.7 g/dl (14.0-17.9); LYMPHOCYTES # (AUTO) 1.1 X10'3 (1.1-4.8); LYMPHOCYTES % (AUTO) 23.2 % (21-51); MEAN CORPUSCULAR HEMOGLOBIN 32.5 PG (27.0-31.0); MEAN CORPUSCULAR HGB CONC 33.6 g/dL (33.0-36.5); MEAN CORPUSCULAR VOLUME 96.8 FL (78-98); MEAN PLATELET VOLUME 8.1 FL (7.4-10.4); MONOCYTES # (AUTO) 0.5 X10'3 (0-0.9); MONOCYTES % (AUTO) 10.7 % (2-12); NEUTROPHILS % (AUTO) 62.3 % (42-75); PLATELET COUNT 143 X10'3 (140-440); POTASSIUM 3.4 MMOL/L (3.5-5.1); RED BLOOD COUNT 2.36 X10'6 (4.70-6.10); RED CELL DISTRIBUTION WIDTH 15.9 % (11.5-14.5); SODIUM 140 MMOL/L (135-145); TOTAL CARBON DIOXIDE 33.1 MMOL/L (24-32); TOTAL PROTEIN 6.8 G/DL (6.4-8.2); WHITE BLOOD COUNT 4.8 X10'3 (4.5-11.0); eGFR 74 ML/MIN
--- NOTE | 2019-12-18 06:40 | NUR ---
Problems reprioritized. Patient report given, questions answered & plan of care reviewed with Mercedes CERVANTES.
[2019-12-18 07:00] VITALS: BP 109/54
[2019-12-18] MEDS: thiamine 100mg tablet PO SCH ×2 (07:46→20:13)
[2019-12-18] MEDS: digoxin 125mcg (0.125mg) tablet PO SCH (07:47)
[2019-12-18] MEDS: lactobacillus rhamnosus 10,000 MMU CELLS/CAPSULE PO SCH ×2 (07:47→20:13)
[2019-12-18] MEDS: vitamin D (cholecalciferol) 1,000 unit tablet PO SCH (07:47)
[2019-12-18] MEDS: furosemide 40mg tablet PO SCH ×2 (07:48→20:13)
[2019-12-18] MEDS: diltiazem 30mg tablet PO SCH ×2 (07:48→20:14)
[2019-12-18] MEDS: levoTHYROXINE 75mcg tablet PO SCH (07:48)
[2019-12-18] MEDS: folic acid 1mg tablet PO SCH (07:48)
[2019-12-18] MEDS: multivitamins, therapeutics tablet PO SCH (07:48)
[2019-12-18] MEDS: amiodarone 200mg tablet PO SCH ×2 (07:48→20:13)
[2019-12-18] MEDS: nystatin 15 GM powder TP SCH ×3 (07:49→20:30)
[2019-12-18] MEDS: heparin, porcine 5000 units/ml vial SQ SCH ×2 (07:59→20:15)
[2019-12-18] MEDS: K and/or MAG REPLACEMENT MC SCH ×4 (08:00→20:00)
[2019-12-18] MEDS: NUT.TX.IMP.RENAL FXN,LAC-REDUC (Nepro) 237 ML VANILLA PO SCH ×3 (08:00→18:02)
[2019-12-18] MEDS: docusate sod 100mg capsule PO SCH ×2 (08:00→20:00)
[2019-12-18] MEDS ORDERED: iron sucrose complex injection 200 MG in normal saline 100ml IV soln 100 ML IV SCH (08:45)
--- NOTE | 2019-12-18 10:39 | NUR ---
Patient in room PCU 3023. I have received report from HELEN Long and had the opportunity to ask questions and assume patient care.
[2019-12-18 11:00] VITALS: BP 116/58
[2019-12-18 15:00] VITALS: BP 123/55
--- NOTE | 2019-12-18 15:43 | NUR ---
Agree with geothermal technician
[2019-12-18] MEDS ORDERED: potassium Cl 20 mEq SR tablet PO PRN (16:05)
[2019-12-18] MEDS ORDERED: potassium CL 10mEq/100ml bag 100 ML IV PRN (16:05)
[2019-12-18] MEDS ORDERED: magnesium 4gm in 100ml NS 100 ML IV PRN (16:05)
[2019-12-18 18:00] VITALS: BP 106/61
--- NOTE | 2019-12-18 18:14 | NUR ---
Problems reprioritized. Patient report given, questions answered & plan of care reviewed with Omari RN.
--- NOTE | 2019-12-18 18:30 | NUR ---
Patient in room PCU 3023. I have received report from Charli CERVANTES and had the opportunity to ask questions and assume patient care.
[2019-12-18] MEDS: FERROUS SULFATE 142 MG TABLET.ER (45mg elemental) PO SCH (20:13)
[2019-12-18] MEDS: potassium Cl 20 mEq SR tablet PO PRN (20:16)
[2019-12-18 22:00] VITALS: BP 125/55
[2019-12-19] MEDS: traMADol 50MG tablet PO PRN (00:35)
[2019-12-19] MEDS: potassium Cl 20 mEq SR tablet PO PRN ×2 (01:10→07:34)
[2019-12-19 02:00] VITALS: BP 111/55
[2019-12-19] MEDS: ipratropium/albuterol 3ml nebule NEB SCH ×4 (02:23→20:47)
[2019-12-19 05:44] LABS: EOSINOPHILS # (AUTO) 0.2 X10'3 (0-0.9); EOSINOPHILS % (AUTO) 3.5 % (0-6); HEMOGLOBIN 7.4 g/dl (14.0-17.9); LYMPHOCYTES # (AUTO) 1.2 X10'3 (1.1-4.8); LYMPHOCYTES % (AUTO) 25.8 % (21-51); MEAN CORPUSCULAR HEMOGLOBIN 32.4 PG (27.0-31.0); MEAN CORPUSCULAR HGB CONC 33.5 g/dL (33.0-36.5); MEAN CORPUSCULAR VOLUME 96.7 FL (78-98); MEAN PLATELET VOLUME 8.3 FL (7.4-10.4); MONOCYTES # (AUTO) 0.4 X10'3 (0-0.9); MONOCYTES % (AUTO) 9.5 % (2-12); NEUTROPHILS # (AUTO) 2.7 X10'3 (1.8-7.7); NEUTROPHILS % (AUTO) 60.2 % (42-75); PLATELET COUNT 152 X10'3 (140-440); RED BLOOD COUNT 2.28 X10'6 (4.70-6.10); WHITE BLOOD COUNT 4.5 X10'3 (4.5-11.0)
[2019-12-19 05:59] LABS: ALANINE AMINOTRANSFERASE 33 U/L (12-78); ALBUMIN 2.7 G/DL (3.4-5.0); ALBUMIN/GLOBULIN RATIO 0.6 (1.1-1.5); ALKALINE PHOSPHATASE 231 IU/L (46-116); ANION GAP 4 (8-16); ASPARTATE AMINO TRANSFERASE 77 U/L (10-37); BILIRUBIN,TOTAL 1.9 MG/DL (0.1-1.0); BLOOD UREA NITROGEN 12 MG/DL (7-18); BUN/CREATININE RATIO 12.2 (5.4-32.0); CALCIUM 9.1 MG/DL (8.5-10.1); CHLORIDE 102 MMOL/L (99-107); CREATININE 0.98 MG/DL (0.60-1.10); GLUCOSE 92 MG/DL (70-104); MAGNESIUM 1.5 MG/DL (1.5-2.4); POTASSIUM 3.5 MMOL/L (3.5-5.1); SODIUM 138 MMOL/L (135-145); TOTAL CARBON DIOXIDE 32.2 MMOL/L (24-32); TOTAL PROTEIN 7.3 G/DL (6.4-8.2); eGFR 83 ML/MIN
[2019-12-19 06:00] VITALS: BP 115/53
--- NOTE | 2019-12-19 06:10 | NUR ---
Patient in room PCU 3027Y. I have received report from Omari RN and had the opportunity to ask questions and assume patient care.
--- NOTE | 2019-12-19 06:12 | NUR ---
Problems reprioritized. Patient report given, questions answered & plan of care reviewed with Alicia Almodovar RN.
--- NOTE | 2019-12-19 06:16 | NUR ---
Critical lab result of HCT [address] Astudillo, no change in orders
[2019-12-19] MEDS: furosemide 40mg tablet PO SCH ×2 (07:34→20:01)
[2019-12-19] MEDS: levoTHYROXINE 75mcg tablet PO SCH (07:34)
[2019-12-19] MEDS: digoxin 125mcg (0.125mg) tablet PO SCH (07:34)
[2019-12-19] MEDS: multivitamins, therapeutics tablet PO SCH (07:34)
[2019-12-19] MEDS: folic acid 1mg tablet PO SCH (07:34)
[2019-12-19] MEDS: lactobacillus rhamnosus 10,000 MMU CELLS/CAPSULE PO SCH ×2 (07:34→20:01)
[2019-12-19] MEDS: thiamine 100mg tablet PO SCH ×2 (07:35→20:01)
[2019-12-19] MEDS: nystatin 15 GM powder TP SCH ×4 (07:35→21:51)
[2019-12-19] MEDS: diltiazem 30mg tablet PO SCH ×2 (07:35→20:01)
[2019-12-19] MEDS: amiodarone 200mg tablet PO SCH ×2 (07:35→20:01)
[2019-12-19] MEDS: vitamin D (cholecalciferol) 1,000 unit tablet PO SCH (07:35)
[2019-12-19] MEDS: heparin, porcine 5000 units/ml vial SQ SCH ×2 (07:36→20:03)
[2019-12-19] MEDS: NUT.TX.IMP.RENAL FXN,LAC-REDUC (Nepro) 237 ML VANILLA PO SCH ×4 (07:44→18:00)
[2019-12-19] MEDS: K and/or MAG REPLACEMENT MC SCH ×4 (07:45→20:00)
[2019-12-19] MEDS: docusate sod 100mg capsule PO SCH ×2 (07:45→20:00)
[2019-12-19] MEDS: FERROUS SULFATE 142 MG TABLET.ER (45mg elemental) PO SCH ×2 (08:48→20:01)
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
[2019-12-19 11:00] VITALS: BP 108/51
[2019-12-19 15:00] VITALS: BP 108/42
[2019-12-19 18:00] VITALS: BP 97/44
--- NOTE | 2019-12-19 18:25 | NUR ---
Problems reprioritized. Patient report given, questions answered & plan of care reviewed with Brandi CERVANTES.
--- NOTE | 2019-12-19 18:26 | NUR ---
Patient in room PCU 3023. I have received report from HELEN Vargas and had the opportunity to ask questions and assume patient care.
[2019-12-19 22:00] VITALS: BP 115/51
[2019-12-20] MEDS: ipratropium/albuterol 3ml nebule NEB SCH ×4 (02:57→20:43)
--- NOTE | 2019-12-20 03:00 | NUR ---
Patient refused 0200 vital signs after attempts of education and reorientation.
--- NOTE | 2019-12-20 03:51 | NUR ---
Patient barely slept last night and didn't have BiPAP on. He keeps it on for a minute and pulls everything off again as usual. But per order he only needs it while he is asleep. I notified ANTHONY MUNGUIA about this and his last ABG on 12/14 and he reassured me that the ABG is old news and if his O2 sats are normal then the Bipap or NC isn't needed.
[2019-12-20 05:59] LABS: ALANINE AMINOTRANSFERASE 31 U/L (12-78); ALBUMIN 2.8 G/DL (3.4-5.0); ALBUMIN/GLOBULIN RATIO 0.6 (1.1-1.5); ALKALINE PHOSPHATASE 237 IU/L (46-116); ANION GAP 8 (8-16); ASPARTATE AMINO TRANSFERASE 69 U/L (10-37); BILIRUBIN,TOTAL 1.8 MG/DL (0.1-1.0); BLOOD UREA NITROGEN 13 MG/DL (7-18); BUN/CREATININE RATIO 10.9 (5.4-32.0); CALCIUM 9.7 MG/DL (8.5-10.1); CHLORIDE 97 MMOL/L (99-107); CREATININE 1.19 MG/DL (0.60-1.10); GLUCOSE 92 MG/DL (70-104); MAGNESIUM 1.5 MG/DL (1.5-2.4); POTASSIUM 3.2 MMOL/L (3.5-5.1); SODIUM 136 MMOL/L (135-145); TOTAL CARBON DIOXIDE 31.4 MMOL/L (24-32); TOTAL PROTEIN 7.4 G/DL (6.4-8.2); eGFR 67 ML/MIN
[2019-12-20 06:00] VITALS: BP 120/52
[2019-12-20 06:06] LABS: EOSINOPHILS # (AUTO) 0.2 X10'3 (0-0.9); EOSINOPHILS % (AUTO) 3.2 % (0-6); HEMATOCRIT 22.4 % (42.0-52.0); HEMOGLOBIN 7.6 g/dl (14.0-17.9); LYMPHOCYTES # (AUTO) 1.3 X10'3 (1.1-4.8); LYMPHOCYTES % (AUTO) 26.8 % (21-51); MEAN CORPUSCULAR HEMOGLOBIN 32.7 PG (27.0-31.0); MEAN CORPUSCULAR HGB CONC 33.8 g/dL (33.0-36.5); MEAN CORPUSCULAR VOLUME 96.7 FL (78-98); MEAN PLATELET VOLUME 8.3 FL (7.4-10.4); MONOCYTES # (AUTO) 0.5 X10'3 (0-0.9); MONOCYTES % (AUTO) 10.4 % (2-12); NEUTROPHILS # (AUTO) 2.8 X10'3 (1.8-7.7); NEUTROPHILS % (AUTO) 58.6 % (42-75); PLATELET COUNT 159 X10'3 (140-440); RED BLOOD COUNT 2.32 X10'6 (4.70-6.10); RED CELL DISTRIBUTION WIDTH 15.7 % (11.5-14.5); WHITE BLOOD COUNT 4.8 X10'3 (4.5-11.0)
--- NOTE | 2019-12-20 06:24 | NUR ---
Problems reprioritized. Patient report given, questions answered & plan of care reviewed with HELEN Nye.
--- NOTE | 2019-12-20 06:24 | NUR ---
Patient in room PCU 3023. I have received report from HELEN Paz and had the opportunity to ask questions and assume patient care.
[2019-12-20] MEDS: K and/or MAG REPLACEMENT MC SCH ×4 (08:00→19:49)
[2019-12-20] MEDS: lactobacillus rhamnosus 10,000 MMU CELLS/CAPSULE PO SCH ×2 (08:00→19:41)
[2019-12-20] MEDS: NUT.TX.IMP.RENAL FXN,LAC-REDUC (Nepro) 237 ML VANILLA PO SCH ×3 (08:00→18:00)
[2019-12-20] MEDS: nystatin 15 GM powder TP SCH ×3 (08:00→21:00)
[2019-12-20] MEDS: vitamin D (cholecalciferol) 1,000 unit tablet PO SCH (09:13)
[2019-12-20] MEDS: docusate sod 100mg capsule PO SCH ×2 (09:13→19:43)
[2019-12-20] MEDS: folic acid 1mg tablet PO SCH (09:13)
[2019-12-20] MEDS: FERROUS SULFATE 142 MG TABLET.ER (45mg elemental) PO SCH ×2 (09:14→19:44)
[2019-12-20] MEDS: diltiazem 30mg tablet PO SCH ×2 (09:14→19:41)
[2019-12-20] MEDS: amiodarone 200mg tablet PO SCH ×2 (09:14→19:41)
[2019-12-20] MEDS: furosemide 40mg tablet PO SCH ×2 (09:14→19:42)
[2019-12-20] MEDS: multivitamins, therapeutics tablet PO SCH (09:15)
[2019-12-20] MEDS: thiamine 100mg tablet PO SCH ×2 (09:15→19:41)
[2019-12-20] MEDS: levoTHYROXINE 75mcg tablet PO SCH (09:15)
[2019-12-20] MEDS: potassium Cl 20 mEq SR tablet PO PRN ×3 (09:15→19:50)
[2019-12-20] MEDS: heparin, porcine 5000 units/ml vial SQ SCH ×2 (09:16→19:43)
[2019-12-20] MEDS: digoxin 125mcg (0.125mg) tablet PO SCH (09:19)
[2019-12-20 11:00] VITALS: BP 108/57
--- NOTE | 2019-12-20 12:30 | NUR ---
F/u (12/19): Upon further review pt mostly poor PO past month w/ occasional 100% or 25% meals. Continues to refuse ONS/meals and MD declines NGTF for alternative nutrition at this time. VIC d/w RN regarding stopping ONS since pt continues to refuse if MD agreeable. LBM 12/18 receiving routine colace. Receiving electrolyte replacement per protocol. Will continue to monitor. Rec: 1. Continue renal diet, mechanical soft grind all diet per ST recs with 1.5L fluid restriction per MD 2. Consider diet liberalization to regular diet with texture modifications per ST recs in view of poor PO intake 3. Encourage PO intake; assist with meals 4. Nepro TIDWM; cancel if MD agreeable in view of refusing 5. routine Thiamine, Folic acid, and MVI for etoh per MD; consider IV if continues refusing PO 6. bowel care per rx 7. IF EN nutrition support via corpak; Vital HP at 90ml/hr goal 8. consider f/u pancreatic enzymes given previously elevated 11/24 9. Weekly wts Addendum: 12/20/19 at [address] Amended: Links added.
--- NOTE | 2019-12-20 13:24 | NUR ---
F/u (12/19): Upon further review pt mostly poor PO past month w/ occasional 100% or 25% meals. Continues to refuse ONS/meals and MD declines NGTF for alternative nutrition at this time. VIC has d/w MD regarding appetite stimulant as well in hop to improve PO; not receiving at this time. VIC d/w RN regarding stopping ONS since pt continues to refuse if MD agreeable. LBM 12/18 receiving routine colace. Receiving electrolyte replacement per protocol. Will continue to monitor. Rec: 1. Continue renal diet, mechanical soft grind all diet per ST recs with 1.5L fluid restriction per MD 2. Diet liberalization to regular diet with texture modifications per ST recs in view of poor PO intake 3. Encourage PO intake; assist with meals; consider appetite stimulant if MD agreeable 4. Nepro TIDWM; cancel if MD agreeable in view of refusing 5. routine Thiamine, Folic acid, and MVI for etoh per MD; consider IV if continues refusing PO 6. bowel care per rx 7. IF EN nutrition support via corpak; Vital HP at 90ml/hr goal 8. consider f/u pancreatic enzymes given previously elevated 11/24 9. Weekly wts Addendum: 12/20/19 at [address] Amended: Links added.
[2019-12-20 15:00] VITALS: BP 117/64
[2019-12-20 18:00] VITALS: BP 136/74
--- NOTE | 2019-12-20 18:00 | NUR ---
Patient in room PCU 3023. I have received report from Parris CERVANTES and had the opportunity to ask questions and assume patient care.
--- NOTE | 2019-12-20 18:19 | NUR ---
Problems reprioritized. Patient report given, questions answered & plan of care reviewed with HELEN Vogel.
[2019-12-20 22:00] VITALS: BP 125/51
--- NOTE | 2019-12-20 22:00 | NUR ---
Refuses Bipap Patient tried to use BiPAP tonight but moments after rips it off. Patient doesn't want it back on after educating him on the purpose of the Bipap and the benefits of having oxygen all night long. Will try again.
[2019-12-21 02:00] VITALS: BP 133/63
[2019-12-21] MEDS: ipratropium/albuterol 3ml nebule NEB SCH ×4 (02:25→19:55)
--- NOTE | 2019-12-21 05:00 | NUR ---
Bipap on since 0200. Patient did well once asleep.
[2019-12-21 06:00] VITALS: BP 113/51
--- NOTE | 2019-12-21 06:17 | NUR ---
Problems reprioritized. Patient report given, questions answered & plan of care reviewed with Evelyne CERVANTES.
--- NOTE | 2019-12-21 06:30 | NUR ---
Patient in room PCU 3023. I have received report from HELEN Candelaria and had the opportunity to ask questions and assume patient care.
[2019-12-21] MEDS: nystatin 15 GM powder TP SCH ×3 (08:00→20:46)
[2019-12-21] MEDS: K and/or MAG REPLACEMENT MC SCH ×4 (08:00→20:46)
[2019-12-21] MEDS: levoTHYROXINE 75mcg tablet PO SCH (09:16)
[2019-12-21] MEDS: lactobacillus rhamnosus 10,000 MMU CELLS/CAPSULE PO SCH ×2 (09:16→19:50)
[2019-12-21] MEDS: digoxin 125mcg (0.125mg) tablet PO SCH (09:17)
[2019-12-21] MEDS: amiodarone 200mg tablet PO SCH ×2 (09:17→19:50)
[2019-12-21] MEDS: folic acid 1mg tablet PO SCH (09:17)
[2019-12-21] MEDS: furosemide 40mg tablet PO SCH ×2 (09:17→19:50)
[2019-12-21] MEDS: diltiazem 30mg tablet PO SCH ×2 (09:22→19:49)
[2019-12-21] MEDS: vitamin D (cholecalciferol) 1,000 unit tablet PO SCH (09:22)
[2019-12-21] MEDS: docusate sod 100mg capsule PO SCH ×2 (09:23→19:49)
[2019-12-21] MEDS: thiamine 100mg tablet PO SCH ×2 (09:23→19:50)
[2019-12-21] MEDS: multivitamins, therapeutics tablet PO SCH (09:23)
[2019-12-21] MEDS: FERROUS SULFATE 142 MG TABLET.ER (45mg elemental) PO SCH ×2 (09:52→20:46)
[2019-12-21] MEDS: heparin, porcine 5000 units/ml vial SQ SCH ×2 (09:53→19:51)
[2019-12-21 11:00] VITALS: BP 113/53
--- NOTE | 2019-12-21 12:31 | NUR ---
Awaiting MD response. PAGER ID: [phone] MESSAGE: RE; William Carbajal. [phone]. AM labs were not ordered. Can we order a CBC/diff and BMP? Thanks. Evelyne Aguilar #[phone]
[2019-12-21] MEDS: potassium Cl 20 mEq SR tablet PO PRN ×2 (13:15→20:47)
[2019-12-21] MEDS: NUT.TX.IMP.RENAL FXN,LAC-REDUC (Nepro) 237 ML VANILLA PO SCH ×2 (13:18→18:00)
[2019-12-21 15:00] VITALS: BP 113/64
[2019-12-21 18:00] VITALS: BP 88/64
--- NOTE | 2019-12-21 18:00 | NUR ---
Patient in room PCU 3023. I have received report from Evelyne CERVANTES and had the opportunity to ask questions and assume patient care.
--- NOTE | 2019-12-21 18:15 | NUR ---
Problems reprioritized. Patient report given, questions answered & plan of care reviewed with HELEN Candelaria.
[2019-12-21] MEDS ORDERED: potassium CL 10mEq/100ml bag 100 ML IV PRN (20:15)
[2019-12-21] MEDS: traMADol 50MG tablet PO PRN (20:47)
[2019-12-21 22:00] VITALS: BP 106/59
[2019-12-22] MEDS: potassium Cl 20 mEq SR tablet PO PRN (01:44)
[2019-12-22] MEDS: ipratropium/albuterol 3ml nebule NEB SCH ×4 (02:52→20:05)
--- NOTE | 2019-12-22 02:53 | NUR ---
Patient non compliant Patient is refusing bipap, is confused and rips it off after five minutes. Patient is also trying to get out of bed, patient says "I need to go and have dinner with my son", patient was reoriented multiple times but still feels "I just need to get out of here" "I can walk". Will continue to monitor patient and hopefully use the bipap.
[2019-12-22 06:00] VITALS: BP 112/46
--- NOTE | 2019-12-22 06:21 | NUR ---
Problems reprioritized. Patient report given, questions answered & plan of care reviewed with Evelyne CERVANTES.
--- NOTE | 2019-12-22 06:21 | NUR ---
Patient in room PCU 3023. I have received report from Teagan CERVANTES and had the opportunity to ask questions and assume patient care.
[2019-12-22 06:45] VITALS: BP 109/47
[2019-12-22] MEDS: NUT.TX.IMP.RENAL FXN,LAC-REDUC (Nepro) 237 ML VANILLA PO SCH ×3 (08:00→19:25)
[2019-12-22] MEDS: K and/or MAG REPLACEMENT MC SCH ×4 (08:00→20:00)
[2019-12-22] MEDS: thiamine 100mg tablet PO SCH ×2 (09:25→20:15)
[2019-12-22] MEDS: docusate sod 100mg capsule PO SCH ×2 (09:25→20:16)
[2019-12-22] MEDS: levoTHYROXINE 75mcg tablet PO SCH (09:25)
[2019-12-22] MEDS: furosemide 40mg tablet PO SCH ×2 (09:25→20:16)
[2019-12-22] MEDS: lactobacillus rhamnosus 10,000 MMU CELLS/CAPSULE PO SCH ×2 (09:25→20:16)
[2019-12-22] MEDS: folic acid 1mg tablet PO SCH (09:25)
[2019-12-22] MEDS: vitamin D (cholecalciferol) 1,000 unit tablet PO SCH (09:25)
[2019-12-22] MEDS: FERROUS SULFATE 142 MG TABLET.ER (45mg elemental) PO SCH ×2 (09:25→20:16)
[2019-12-22] MEDS: multivitamins, therapeutics tablet PO SCH (09:25)
[2019-12-22] MEDS: diltiazem 30mg tablet PO SCH ×2 (09:26→20:16)
[2019-12-22] MEDS: digoxin 125mcg (0.125mg) tablet PO SCH (09:26)
[2019-12-22] MEDS: amiodarone 200mg tablet PO SCH ×2 (09:26→20:16)
[2019-12-22] MEDS: heparin, porcine 5000 units/ml vial SQ SCH ×2 (09:30→20:16)
[2019-12-22 11:00] VITALS: BP 129/61
[2019-12-22] MEDS: nystatin 15 GM powder TP SCH ×3 (13:00→20:17)
[2019-12-22] MEDS ORDERED: magnesium Cl slow-release 64mg tablet PO PRN (15:20)
--- NOTE | 2019-12-22 18:25 | NUR ---
Patient in room U 3023. I have received report from HELEN Stubbs and had the opportunity to ask questions and assume patient care. Addendum: 12/22/19 at 1825 by Brit Mei RN Amended: Links added.
--- NOTE | 2019-12-22 18:25 | NUR ---
Problems reprioritized. Patient report given, questions answered & plan of care reviewed with HELEN Perea.
[2019-12-22 19:11] VITALS: BP 124/59
[2019-12-22 22:00] VITALS: BP 118/58
[2019-12-23 02:00] VITALS: BP 111/49
[2019-12-23] MEDS: ipratropium/albuterol 3ml nebule NEB SCH ×4 (02:20→20:21)
[2019-12-23 05:55] LABS: BASOPHILS % (AUTO) 1.2 % (0-1); EOSINOPHILS # (AUTO) 0.2 X10'3 (0-0.9); EOSINOPHILS % (AUTO) 4.6 % (0-6); HEMATOCRIT 23.1 % (42.0-52.0); HEMOGLOBIN 7.7 g/dl (14.0-17.9); LYMPHOCYTES # (AUTO) 1.2 X10'3 (1.1-4.8); LYMPHOCYTES % (AUTO) 29.1 % (21-51); MEAN CORPUSCULAR HEMOGLOBIN 32.3 PG (27.0-31.0); MEAN CORPUSCULAR HGB CONC 33.5 g/dL (33.0-36.5); MEAN CORPUSCULAR VOLUME 96.5 FL (78-98); MONOCYTES # (AUTO) 0.5 X10'3 (0-0.9); MONOCYTES % (AUTO) 13.4 % (2-12); NEUTROPHILS # (AUTO) 2.1 X10'3 (1.8-7.7); NEUTROPHILS % (AUTO) 51.7 % (42-75); PLATELET COUNT 170 X10'3 (140-440); RED BLOOD COUNT 2.39 X10'6 (4.70-6.10); RED CELL DISTRIBUTION WIDTH 16.9 % (11.5-14.5)
[2019-12-23 06:16] LABS: ALANINE AMINOTRANSFERASE 24 U/L (12-78); ALBUMIN 2.9 G/DL (3.4-5.0); ALBUMIN/GLOBULIN RATIO 0.6 (1.1-1.5); ALKALINE PHOSPHATASE 210 IU/L (46-116); ANION GAP 9 (8-16); ASPARTATE AMINO TRANSFERASE 50 U/L (10-37); BILIRUBIN,TOTAL 1.6 MG/DL (0.1-1.0); BLOOD UREA NITROGEN 14 MG/DL (7-18); BUN/CREATININE RATIO 12.7 (5.4-32.0); CALCIUM 9.8 MG/DL (8.5-10.1); CHLORIDE 97 MMOL/L (99-107); GLUCOSE 99 MG/DL (70-104); SODIUM 137 MMOL/L (135-145); TOTAL CARBON DIOXIDE 31.1 MMOL/L (24-32); TOTAL PROTEIN 7.6 G/DL (6.4-8.2); eGFR 73 ML/MIN
--- NOTE | 2019-12-23 06:18 | NUR ---
Patient in room PCU 3023. I have received report from HELEN Perea and had the opportunity to ask questions and assume patient care.
--- NOTE | 2019-12-23 06:19 | NUR ---
Problems reprioritized. Patient report given, questions answered & plan of care reviewed with HELEN Umana.
[2019-12-23 07:00] VITALS: BP 119/53
--- NOTE | 2019-12-23 07:37 | NUR ---
PAGER ID: [phone] MESSAGE: Patient [place] 3023-C. Critical K+ 3.0. Will replace per protocol. Lyndsay CHELSEA [phone]
[2019-12-23] MEDS: docusate sod 100mg capsule PO SCH ×2 (08:00→19:23)
[2019-12-23] MEDS: potassium Cl 20 mEq SR tablet PO PRN ×3 (08:46→17:08)
[2019-12-23] MEDS: heparin, porcine 5000 units/ml vial SQ SCH ×2 (08:46→19:18)
[2019-12-23] MEDS: lactobacillus rhamnosus 10,000 MMU CELLS/CAPSULE PO SCH ×2 (08:47→19:16)
[2019-12-23] MEDS: vitamin D (cholecalciferol) 1,000 unit tablet PO SCH (08:47)
[2019-12-23] MEDS: digoxin 125mcg (0.125mg) tablet PO SCH (08:47)
[2019-12-23] MEDS: levoTHYROXINE 75mcg tablet PO SCH (08:48)
[2019-12-23] MEDS: multivitamins, therapeutics tablet PO SCH (08:48)
[2019-12-23] MEDS: furosemide 40mg tablet PO SCH ×2 (08:48→19:16)
[2019-12-23] MEDS: folic acid 1mg tablet PO SCH (08:48)
[2019-12-23] MEDS: amiodarone 200mg tablet PO SCH ×2 (08:48→19:16)
[2019-12-23] MEDS: K and/or MAG REPLACEMENT MC SCH ×4 (08:49→20:00)
[2019-12-23] MEDS: diltiazem 30mg tablet PO SCH ×2 (08:49→19:16)
[2019-12-23] MEDS: nystatin 15 GM powder TP SCH ×3 (08:49→21:54)
[2019-12-23] MEDS: NUT.TX.IMP.RENAL FXN,LAC-REDUC (Nepro) 237 ML VANILLA PO SCH ×3 (08:49→18:00)
[2019-12-23] MEDS: thiamine 100mg tablet PO SCH ×2 (09:22→19:16)
[2019-12-23] MEDS: FERROUS SULFATE 142 MG TABLET.ER (45mg elemental) PO SCH ×2 (10:04→21:44)
[2019-12-23 11:00] VITALS: BP 101/58
[2019-12-23 15:00] VITALS: BP 119/59
[2019-12-23 18:00] VITALS: BP 119/52
--- NOTE | 2019-12-23 18:15 | NUR ---
Problems reprioritized. Patient report given, questions answered & plan of care reviewed with HELEN Miranda. Patient stable at transfer of care.
--- NOTE | 2019-12-23 18:20 | NUR ---
Patient in room PCU 3023. I have received report from Lyndsay CERVANTES and had the opportunity to ask questions and assume patient care. Patient awake on report and in no apparent distress. No fluids running, on room air, and is noncompliant with telemetry.
[2019-12-23 22:00] VITALS: BP 102/43
[2019-12-24 02:11] VITALS: BP 137/62
--- NOTE | 2019-12-24 02:58 | NUR ---
Dr. Ma paged regarding dark, tarry stool. Re: William Rojasr Rm [phone] FYI: Moderate amount of dark, tarry stool removed during bed changed. Ruben CERVANTES, [phone].
--- NOTE | 2019-12-24 03:10 | NUR ---
Telephone orders received for CBC/diff every eight hours per MD Magu.
[2019-12-24] MEDS: ipratropium/albuterol 3ml nebule NEB SCH ×4 (03:20→20:38)
--- NOTE | 2019-12-24 03:52 | NUR ---
Paged MD Ma regarding patient's no IV and unable to grab Stat labs. Re: William Hardeep Rm [phone] Patient has no IV and is a hard stick. would you want to give protonix PO? unsuccessful STAT labs after 3 attempts, will wait for lab to arrive. Ruben CERVANTES [phone]
[2019-12-24 04:23] LABS: EOSINOPHILS # (AUTO) 0.2 X10'3 (0-0.9); HEMOGLOBIN 8.3 g/dl (14.0-17.9); MONOCYTES # (AUTO) 0.7 X10'3 (0-0.9)
[2019-12-24 04:25] LABS: BASOPHILS # (AUTO) 0.1 X10'3 (0-0.2); BASOPHILS % (AUTO) 1.4 % (0-1); EOSINOPHILS % (AUTO) 4.9 % (0-6); HEMATOCRIT 24.7 % (42.0-52.0); LYMPHOCYTES # (AUTO) 1.3 X10'3 (1.1-4.8); LYMPHOCYTES % (AUTO) 28.1 % (21-51); MEAN CORPUSCULAR HEMOGLOBIN 32.1 PG (27.0-31.0); MEAN CORPUSCULAR HGB CONC 33.5 g/dL (33.0-36.5); MEAN CORPUSCULAR VOLUME 95.7 FL (78-98); MEAN PLATELET VOLUME 8.2 FL (7.4-10.4); MONOCYTES % (AUTO) 14.4 % (2-12); NEUTROPHILS # (AUTO) 2.4 X10'3 (1.8-7.7); NEUTROPHILS % (AUTO) 51.2 % (42-75); PLATELET COUNT 167 X10'3 (140-440); RED BLOOD COUNT 2.58 X10'6 (4.70-6.10); RED CELL DISTRIBUTION WIDTH 16.8 % (11.5-14.5); WHITE BLOOD COUNT 4.6 X10'3 (4.5-11.0)
[2019-12-24 04:38] LABS: ALANINE AMINOTRANSFERASE 19 U/L (12-78); ALBUMIN 3.1 G/DL (3.4-5.0); ALBUMIN/GLOBULIN RATIO 0.7 (1.1-1.5); ALKALINE PHOSPHATASE 213 IU/L (46-116); ANION GAP 7 (8-16); ASPARTATE AMINO TRANSFERASE 53 U/L (10-37); BILIRUBIN,TOTAL 1.6 MG/DL (0.1-1.0); BLOOD UREA NITROGEN 14 MG/DL (7-18); BUN/CREATININE RATIO 11.3 (5.4-32.0); CHLORIDE 95 MMOL/L (99-107); CREATININE 1.24 MG/DL (0.60-1.10); GLUCOSE 92 MG/DL (70-104); POTASSIUM 3.6 MMOL/L (3.5-5.1); SODIUM 132 MMOL/L (135-145); TOTAL CARBON DIOXIDE 30.2 MMOL/L (24-32); TOTAL PROTEIN 7.8 G/DL (6.4-8.2); eGFR 64 ML/MIN
--- NOTE | 2019-12-24 05:06 | NUR ---
[facility] documentation: I have reviewed and agree with all interventions, assessments performed and documented by Ruben CERVANTES. [facility] Medication Administration: For this medication-pass time frame, all medication were reviewed, dispensed, administered and documented per hospital policy by Ruben CERVANTES.
--- NOTE | 2019-12-24 05:10 | NUR ---
Student documentation: I have reviewed and agree with all interventions, assessments performed and documented by Mayra ARGUETA. Student Medication Administration: For this medication-pass time frame, all medication were reviewed, dispensed, administered and documented per hospital policy by Mayra ARGUETA.
[2019-12-24] MEDS ORDERED: pantoprazole 40MG/NS 100ML BAG 100 ML IV SCH (06:00)
--- NOTE | 2019-12-24 06:17 | NUR ---
Problems reprioritized. Patient report given, questions answered & plan of care reviewed with Lyndsay CERVANTES. Patient resting comftroably and in no distress. Protonix drip running.
--- NOTE | 2019-12-24 06:46 | NUR ---
Patient in room PCU 3023. I have received report from HELEN Miranda and had the opportunity to ask questions and assume patient care.
[2019-12-24 07:00] VITALS: BP 118/56
[2019-12-24] MEDS: vitamin D (cholecalciferol) 1,000 unit tablet PO SCH (08:37)
[2019-12-24] MEDS: lactobacillus rhamnosus 10,000 MMU CELLS/CAPSULE PO SCH ×2 (08:37→19:22)
[2019-12-24] MEDS: thiamine 100mg tablet PO SCH ×2 (08:37→19:23)
[2019-12-24] MEDS: diltiazem 30mg tablet PO SCH ×2 (08:37→19:22)
[2019-12-24] MEDS: docusate sod 100mg capsule PO SCH ×2 (08:38→19:23)
[2019-12-24] MEDS: folic acid 1mg tablet PO SCH (08:38)
[2019-12-24] MEDS: multivitamins, therapeutics tablet PO SCH (08:38)
[2019-12-24] MEDS: amiodarone 200mg tablet PO SCH ×2 (08:38→19:23)
[2019-12-24] MEDS: digoxin 125mcg (0.125mg) tablet PO SCH (08:38)
[2019-12-24] MEDS: levoTHYROXINE 75mcg tablet PO SCH (08:39)
[2019-12-24] MEDS: FERROUS SULFATE 142 MG TABLET.ER (45mg elemental) PO SCH ×2 (08:39→19:23)
[2019-12-24] MEDS: nystatin 15 GM powder TP SCH ×3 (08:39→21:58)
[2019-12-24] MEDS: heparin, porcine 5000 units/ml vial SQ SCH ×2 (08:39→19:23)
[2019-12-24] MEDS: furosemide 40mg tablet PO SCH ×2 (08:39→19:22)
[2019-12-24] MEDS: NUT.TX.IMP.RENAL FXN,LAC-REDUC (Nepro) 237 ML VANILLA PO SCH ×3 (08:39→18:00)
[2019-12-24] MEDS: K and/or MAG REPLACEMENT MC SCH ×4 (08:40→20:00)
--- NOTE | 2019-12-24 10:43 | NUR ---
Page to Yeny PAGER ID: [phone] MESSAGE: Patient [place] 5550-[id number]. Patient pulled out IV, refusing PICC line. IV protonix needs to be discontinued. Will continue to monitor. Lyndsay Macho [phone]
[2019-12-24 11:00] VITALS: BP 115/58
[2019-12-24 11:34] LABS: BASOPHILS % (AUTO) 0.5 % (0-1); EOSINOPHILS # (AUTO) 0.2 X10'3 (0-0.9); EOSINOPHILS % (AUTO) 4.5 % (0-6); HEMOGLOBIN 8.9 g/dl (14.0-17.9); LYMPHOCYTES % (AUTO) 25.6 % (21-51); MEAN CORPUSCULAR HEMOGLOBIN 31.9 PG (27.0-31.0); MEAN CORPUSCULAR HGB CONC 33.1 g/dL (33.0-36.5); MEAN CORPUSCULAR VOLUME 96.6 FL (78-98); MEAN PLATELET VOLUME 7.9 FL (7.4-10.4); MONOCYTES # (AUTO) 0.6 X10'3 (0-0.9); MONOCYTES % (AUTO) 14.1 % (2-12); NEUTROPHILS # (AUTO) 2.3 X10'3 (1.8-7.7); NEUTROPHILS % (AUTO) 55.3 % (42-75); PLATELET COUNT 172 X10'3 (140-440); RED BLOOD COUNT 2.79 X10'6 (4.70-6.10); RED CELL DISTRIBUTION WIDTH 16.8 % (11.5-14.5); WHITE BLOOD COUNT 4.1 X10'3 (4.5-11.0)
[2019-12-24 15:00] VITALS: BP 112/64
--- NOTE | 2019-12-24 15:19 | NUR ---
F/u (12/23): Pt continues to refuse all PO/ONS. RD d/w RN regarding nutrition support needs given poor PO since admit not meeting nutrition needs 33 days at this point. LBM 12/21 noted to have some bleeding present on bed possibly r/t PO meds w/ no PO food per RN today. Pending transfer to facility once they have proper equipment per CM note. Will continue to monitor. Rec: 1. Continue renal diet, mechanical soft grind all diet per ST recs with 1.5L fluid restriction per MD 2. Diet liberalization to regular diet with texture modifications per ST recs in view of poor PO intake 3. Encourage PO intake; assist with meals; consider appetite stimulant if MD agreeable 4. Nepro TIDWM; cancel if MD agreeable in view of refusing 5. routine Thiamine, Folic acid, and MVI for etoh per MD; consider IV if continues refusing PO 6. bowel care per rx 7. IF EN nutrition support via corpak; Vital HP at 90ml/hr goal 8. consider f/u pancreatic enzymes given previously elevated 11/24 9. Weekly wts Addendum: 12/24/19 at [address] Amended: Links added.
--- NOTE | 2019-12-24 16:30 | NUR ---
Patient in room U 3023. I have received report from Lyndsay CERVANTES and had the opportunity to ask questions and assume patient care. Patient asleep on bedside report and in no apparent distress. Patient on no IV fluids, room air, and on no telemetry monitoring. Addendum: 12/24/19 at 2024 by Ravi Montelongo RN Incorrect time entered for time of hand-off report. Time of report received was 18112/24/19.
[2019-12-24 18:00] VITALS: BP 114/60
--- NOTE | 2019-12-24 18:11 | NUR ---
Problems reprioritized. Patient report given, questions answered & plan of care reviewed with HELEN Gonzalez and HELEN Miranda. Pt stable at transfer of care.
--- NOTE | 2019-12-24 18:12 | NUR ---
Patient in room PCU 3023C. I have received report from HELEN ORTEGA and had the opportunity to ask questions and assume patient care. PATIENT AWAKE FOR BEDSIDE REPORT, ON ROOM AIR, AND NO IV ACCESS AT THIS TIME. WILL CONTINUE TO MONITOR CLOSELY.
[2019-12-24] MEDS: pantoprazole 40mg Tablet.DR PO SCH (19:23)
[2019-12-24 22:00] VITALS: BP 148/62
[2019-12-25 02:00] VITALS: BP 117/55
[2019-12-25] MEDS: ipratropium/albuterol 3ml nebule NEB SCH ×4 (03:04→20:12)
--- NOTE | 2019-12-25 03:04 | NUR ---
Patient in room PCU 3023. I have received report from Ruben CERVANTES/Karina CERVANTES and had the opportunity to ask questions and assume patient care.
--- NOTE | 2019-12-25 03:20 | NUR ---
Problems reprioritized. Patient report given, questions answered & plan of care reviewed with China CERVANTES. Patient in bed asleep and showing no signs of distress.
[2019-12-25 05:14] LABS: BASOPHILS # (AUTO) 0.1 X10'3 (0-0.2); BASOPHILS % (AUTO) 1.2 % (0-1); EOSINOPHILS # (AUTO) 0.2 X10'3 (0-0.9); EOSINOPHILS % (AUTO) 4.7 % (0-6); HEMATOCRIT 23.9 % (42.0-52.0); LYMPHOCYTES # (AUTO) 1.2 X10'3 (1.1-4.8); LYMPHOCYTES % (AUTO) 25.6 % (21-51); MEAN CORPUSCULAR HEMOGLOBIN 32.2 PG (27.0-31.0); MEAN CORPUSCULAR HGB CONC 33.6 g/dL (33.0-36.5); MEAN CORPUSCULAR VOLUME 95.7 FL (78-98); MEAN PLATELET VOLUME 7.4 FL (7.4-10.4); MONOCYTES # (AUTO) 0.6 X10'3 (0-0.9); MONOCYTES % (AUTO) 13.9 % (2-12); NEUTROPHILS # (AUTO) 2.5 X10'3 (1.8-7.7); NEUTROPHILS % (AUTO) 54.6 % (42-75); PLATELET COUNT 176 X10'3 (140-440); RED CELL DISTRIBUTION WIDTH 17.3 % (11.5-14.5); WHITE BLOOD COUNT 4.6 X10'3 (4.5-11.0)
[2019-12-25 05:30] LABS: ALANINE AMINOTRANSFERASE 21 U/L (12-78); ALBUMIN 2.9 G/DL (3.4-5.0); ALBUMIN/GLOBULIN RATIO 0.6 (1.1-1.5); ALKALINE PHOSPHATASE 204 IU/L (46-116); ANION GAP 8 (8-16); ASPARTATE AMINO TRANSFERASE 42 U/L (10-37); BILIRUBIN,TOTAL 1.5 MG/DL (0.1-1.0); BLOOD UREA NITROGEN 15 MG/DL (7-18); BUN/CREATININE RATIO 12.3 (5.4-32.0); CALCIUM 10.5 MG/DL (8.5-10.1); CHLORIDE 95 MMOL/L (99-107); CREATININE 1.22 MG/DL (0.60-1.10); GLUCOSE 104 MG/DL (70-104); SODIUM 135 MMOL/L (135-145); TOTAL CARBON DIOXIDE 32.5 MMOL/L (24-32); TOTAL PROTEIN 7.7 G/DL (6.4-8.2); eGFR 65 ML/MIN
[2019-12-25 05:32] LABS: POTASSIUM 2.8 MMOL/L (3.5-5.1)
--- NOTE | 2019-12-25 06:26 | NUR ---
Problems reprioritized. Patient report given, questions answered & plan of care reviewed with Lyndsay CERVANTES.
--- NOTE | 2019-12-25 06:33 | NUR ---
Patient in room PCU 3023. I have received report from HELEN Atkinson and had the opportunity to ask questions and assume patient care.
[2019-12-25] MEDS ORDERED: potassium Cl 20 mEq SR tablet PO PRN (06:35)
[2019-12-25] MEDS ORDERED: potassium CL 10mEq/100ml bag 100 ML IV PRN ×2 (06:35)
[2019-12-25 07:00] VITALS: BP 120/68
[2019-12-25] MEDS: levoTHYROXINE 75mcg tablet PO SCH (07:58)
[2019-12-25] MEDS: FERROUS SULFATE 142 MG TABLET.ER (45mg elemental) PO SCH ×2 (07:58→19:32)
[2019-12-25] MEDS: heparin, porcine 5000 units/ml vial SQ SCH ×2 (07:58→19:34)
[2019-12-25] MEDS: amiodarone 200mg tablet PO SCH ×2 (07:58→19:33)
[2019-12-25] MEDS: digoxin 125mcg (0.125mg) tablet PO SCH (07:59)
[2019-12-25] MEDS: potassium Cl 20 mEq SR tablet PO PRN ×3 (07:59→17:36)
[2019-12-25] MEDS: furosemide 40mg tablet PO SCH ×2 (08:00→19:32)
[2019-12-25] MEDS: docusate sod 100mg capsule PO SCH ×2 (08:00→19:46)
[2019-12-25] MEDS: thiamine 100mg tablet PO SCH ×2 (08:00→19:32)
[2019-12-25] MEDS: lactobacillus rhamnosus 10,000 MMU CELLS/CAPSULE PO SCH ×2 (08:00→19:33)
[2019-12-25] MEDS: folic acid 1mg tablet PO SCH (08:00)
[2019-12-25] MEDS: diltiazem 30mg tablet PO SCH ×2 (08:00→19:32)
[2019-12-25] MEDS: multivitamins, therapeutics tablet PO SCH (08:01)
[2019-12-25] MEDS: pantoprazole 40mg Tablet.DR PO SCH ×2 (08:01→19:33)
[2019-12-25] MEDS: vitamin D (cholecalciferol) 1,000 unit tablet PO SCH (08:01)
[2019-12-25] MEDS: NUT.TX.IMP.RENAL FXN,LAC-REDUC (Nepro) 237 ML VANILLA PO SCH ×3 (08:02→18:00)
[2019-12-25] MEDS: K and/or MAG REPLACEMENT MC SCH ×4 (08:02→20:00)
[2019-12-25] MEDS: nystatin 15 GM powder TP SCH (08:02)
[2019-12-25] MEDS ORDERED: magnesium Cl slow-release 64mg tablet PO PRN (08:45)
[2019-12-25 09:10] LABS: MAGNESIUM 1.6 MG/DL (1.5-2.4)
[2019-12-25 11:00] VITALS: BP 131/78
[2019-12-25 14:56] LABS: BASOPHILS # (AUTO) 0.1 X10'3 (0-0.2); BASOPHILS % (AUTO) 1.5 % (0-1); EOSINOPHILS # (AUTO) 0.2 X10'3 (0-0.9); EOSINOPHILS % (AUTO) 4.8 % (0-6); HEMATOCRIT 25.6 % (42.0-52.0); HEMOGLOBIN 8.4 g/dl (14.0-17.9); LYMPHOCYTES % (AUTO) 23.6 % (21-51); MEAN CORPUSCULAR HEMOGLOBIN 31.8 PG (27.0-31.0); MEAN CORPUSCULAR VOLUME 96.5 FL (78-98); MEAN PLATELET VOLUME 7.4 FL (7.4-10.4); MONOCYTES # (AUTO) 0.6 X10'3 (0-0.9); MONOCYTES % (AUTO) 13.2 % (2-12); NEUTROPHILS # (AUTO) 2.4 X10'3 (1.8-7.7); NEUTROPHILS % (AUTO) 56.9 % (42-75); PLATELET COUNT 175 X10'3 (140-440); RED BLOOD COUNT 2.65 X10'6 (4.70-6.10); RED CELL DISTRIBUTION WIDTH 16.8 % (11.5-14.5); WHITE BLOOD COUNT 4.3 X10'3 (4.5-11.0)
[2019-12-25 15:00] VITALS: BP 104/48
[2019-12-25] MEDS: traMADol 50MG tablet PO PRN (15:04)
[2019-12-25 18:00] VITALS: BP 117/60
--- NOTE | 2019-12-25 18:15 | NUR ---
Patient in room PCU 3023. I have received report from Lyndsay CERVANTES and had the opportunity to ask questions and assume patient care. Patient resting in bed on report and in no apparent distress. No IV fluids running, not on telemetry monitoring, and on room air (patient noncompliant and MD aware).
--- NOTE | 2019-12-25 18:28 | NUR ---
Patient in room PCU 3023. I have received report from Judy CERVANTES and Ruben CERVANTES and had the opportunity to ask questions and assume patient care.
--- NOTE | 2019-12-25 19:06 | NUR ---
Problems reprioritized. Patient report given, questions answered & plan of care reviewed with HELEN Umana.
[2019-12-25 22:00] VITALS: BP 129/61
[2019-12-26] VITALS (7 sets, daily range): BP systolic 116–134; BP diastolic 62–78
[2019-12-26] MEDS: ipratropium/albuterol 3ml nebule NEB SCH ×4 (02:51→21:19)
--- NOTE | 2019-12-26 05:46 | NUR ---
sent to Dr. Carbajal PAGER ID: [phone] MESSAGE: room 23C William Sanders: Hi can you call to discuss patients lab orders? Thanks, Juyd [phone]
--- NOTE | 2019-12-26 05:58 | NUR ---
Problems reprioritized. Patient report given, questions answered & plan of care reviewed with HELEN Tapia.
--- NOTE | 2019-12-26 06:03 | NUR ---
ORIENTEE documentation: I have reviewed and agree with all interventions, assessments performed and documented by HELEN Miranda . [facility] Medication Administration: For this medication-pass time frame, all medication were reviewed, dispensed, administered and documented per hospital policy by HELEN Miranda.
--- NOTE | 2019-12-26 06:03 | NUR ---
Problems reprioritized. Patient report given, questions answered & plan of care reviewed with Regina CERVANTES. Patient sleeping comftorably in bed and showing no signs of distress.
--- NOTE | 2019-12-26 06:09 | NUR ---
Problems reprioritized. Patient report given, questions answered & plan of care reviewed with HELEN Rockwell. [facility] documentation: I have reviewed and agree with all interventions, assessments performed and documented by HELEN Miranda. [facility] Medication Administration: For this medication-pass time frame, all medication were reviewed, dispensed, administered and documented per hospital policy by HELEN Miranda .
--- NOTE | 2019-12-26 06:35 | NUR ---
Patient in room PCU 3023. I have received report from Judy RN and HELEN Miranda and had the opportunity to ask questions and assume patient care. Patient asleep in bed and in no acute distress.
[2019-12-26 07:10] LABS: BASOPHILS % (AUTO) 1.1 % (0-1); EOSINOPHILS # (AUTO) 0.2 X10'3 (0-0.9); EOSINOPHILS % (AUTO) 4.6 % (0-6); HEMATOCRIT 24.2 % (42.0-52.0); HEMOGLOBIN 8.1 g/dl (14.0-17.9); LYMPHOCYTES % (AUTO) 24.5 % (21-51); MEAN CORPUSCULAR HEMOGLOBIN 32.3 PG (27.0-31.0); MEAN CORPUSCULAR HGB CONC 33.4 g/dL (33.0-36.5); MEAN CORPUSCULAR VOLUME 96.9 FL (78-98); MEAN PLATELET VOLUME 7.7 FL (7.4-10.4); MONOCYTES # (AUTO) 0.5 X10'3 (0-0.9); MONOCYTES % (AUTO) 12.5 % (2-12); NEUTROPHILS # (AUTO) 2.4 X10'3 (1.8-7.7); NEUTROPHILS % (AUTO) 57.3 % (42-75); PLATELET COUNT 167 X10'3 (140-440); RED CELL DISTRIBUTION WIDTH 17.4 % (11.5-14.5); WHITE BLOOD COUNT 4.1 X10'3 (4.5-11.0)
[2019-12-26 07:23] LABS: ANION GAP 7 (8-16); CHLORIDE 97 MMOL/L (99-107); GLUCOSE 100 MG/DL (70-104); POTASSIUM 3.2 MMOL/L (3.5-5.1); SODIUM 136 MMOL/L (135-145); TOTAL CARBON DIOXIDE 31.8 MMOL/L (24-32)
[2019-12-26 07:24] LABS: ALANINE AMINOTRANSFERASE 19 U/L (12-78); ALBUMIN 2.9 G/DL (3.4-5.0); ALBUMIN/GLOBULIN RATIO 0.6 (1.1-1.5); ALKALINE PHOSPHATASE 195 IU/L (46-116); ASPARTATE AMINO TRANSFERASE 35 U/L (10-37); BILIRUBIN,TOTAL 1.4 MG/DL (0.1-1.0); BLOOD UREA NITROGEN 16 MG/DL (7-18); BUN/CREATININE RATIO 15.2 (5.4-32.0); CALCIUM 10.6 MG/DL (8.5-10.1); CREATININE 1.05 MG/DL (0.60-1.10); MAGNESIUM 1.6 MG/DL (1.5-2.4); TOTAL PROTEIN 7.6 G/DL (6.4-8.2); eGFR 77 ML/MIN
[2019-12-26] MEDS: docusate sod 100mg capsule PO SCH ×2 (08:00→20:00)
[2019-12-26] MEDS: digoxin 125mcg (0.125mg) tablet PO SCH (08:37)
[2019-12-26] MEDS: furosemide 40mg tablet PO SCH ×2 (08:37→20:21)
[2019-12-26] MEDS: vitamin D (cholecalciferol) 1,000 unit tablet PO SCH (08:38)
[2019-12-26] MEDS: pantoprazole 40mg Tablet.DR PO SCH ×2 (08:38→20:21)
[2019-12-26] MEDS: lactobacillus rhamnosus 10,000 MMU CELLS/CAPSULE PO SCH ×2 (08:39→20:20)
[2019-12-26] MEDS: multivitamins, therapeutics tablet PO SCH (08:39)
[2019-12-26] MEDS: levoTHYROXINE 75mcg tablet PO SCH (08:39)
[2019-12-26] MEDS: thiamine 100mg tablet PO SCH ×2 (08:39→20:28)
[2019-12-26] MEDS: folic acid 1mg tablet PO SCH (08:39)
[2019-12-26] MEDS: potassium Cl 20 mEq SR tablet PO PRN ×3 (08:40→20:21)
[2019-12-26] MEDS: amiodarone 200mg tablet PO SCH ×2 (08:40→20:21)
[2019-12-26] MEDS: diltiazem 30mg tablet PO SCH ×2 (08:40→20:20)
[2019-12-26] MEDS: NUT.TX.IMP.RENAL FXN,LAC-REDUC (Nepro) 237 ML VANILLA PO SCH ×3 (08:41→18:07)
[2019-12-26] MEDS: K and/or MAG REPLACEMENT MC SCH ×4 (08:41→20:00)
[2019-12-26] MEDS: heparin, porcine 5000 units/ml vial SQ SCH ×2 (08:42→20:20)
[2019-12-26] MEDS: FERROUS SULFATE 142 MG TABLET.ER (45mg elemental) PO SCH ×2 (08:57→20:28)
[2019-12-26] MEDS: traMADol 50MG tablet PO PRN (13:52)
--- NOTE | 2019-12-26 18:07 | NUR ---
Nepro shakes administered with breakfast, lunch, and dinner. Bar code unable to scan.
--- NOTE | 2019-12-26 18:18 | NUR ---
Problems reprioritized. Patient report given, questions answered & plan of care reviewed with HELEN Kim. Patient stable at transfer of care.
--- NOTE | 2019-12-26 18:47 | NUR ---
Patient in room PCU 3023. I have received report from HELEN Tapia and had the opportunity to ask questions and assume patient care.
[2019-12-27 01:16] VITALS: BP 141/76
[2019-12-27] MEDS: ipratropium/albuterol 3ml nebule NEB SCH (02:42)
--- NOTE | 2019-12-27 06:28 | NUR ---
Patient picked up by transport EMT's to go to [facility] [place]. Belongings sent with patient, was called. Patient in stable condition. Paperwork sent with transport team. (2 packets)
== END 2019-12-27 06:56 | DRG 469 ==
LOC: ER 12:12 → ED HOLD 14:20 → ICU 2S 17:25 → PCU 3S 11-25 19:40
PROVIDERS: ADMIT Internal Medicine; ATTEND Internal Medicine
PROC: 0JH63XZ Insertion of Tunneled Vascular Access Device into Chest Subcutaneous Tissue and Fascia, Percutaneous Approach (ICD-10-PCS; principal; 2019-11-20)
PROC: 02HV33Z Insertion of Infusion Device into Superior Vena Cava, Percutaneous Approach (ICD-10-PCS; 2019-11-20)
PROC: B548ZZA Ultrasonography of Superior Vena Cava, Guidance (ICD-10-PCS; 2019-11-20)
PROC: 5A09357 Assistance with Respiratory Ventilation, Less than 24 Consecutive Hours, Continuous Positive Airway Pressure (ICD-10-PCS; 2019-11-20)
PROC: 5A09357 Assistance with Respiratory Ventilation, Less than 24 Consecutive Hours, Continuous Positive Airway Pressure (ICD-10-PCS; 2019-11-21)
PROC: 5A09357 Assistance with Respiratory Ventilation, Less than 24 Consecutive Hours, Continuous Positive Airway Pressure (ICD-10-PCS; 2019-11-22)
PROC: 5A09357 Assistance with Respiratory Ventilation, Less than 24 Consecutive Hours, Continuous Positive Airway Pressure (ICD-10-PCS; 2019-11-23)
PROC: 5A09357 Assistance with Respiratory Ventilation, Less than 24 Consecutive Hours, Continuous Positive Airway Pressure (ICD-10-PCS; 2019-11-28)
PROC: 5A09357 Assistance with Respiratory Ventilation, Less than 24 Consecutive Hours, Continuous Positive Airway Pressure (ICD-10-PCS; 2019-11-29)
PROC: 5A09357 Assistance with Respiratory Ventilation, Less than 24 Consecutive Hours, Continuous Positive Airway Pressure (ICD-10-PCS; 2019-11-30)
PROC: 5A09357 Assistance with Respiratory Ventilation, Less than 24 Consecutive Hours, Continuous Positive Airway Pressure (ICD-10-PCS; 2019-12-01)
PROC: 5A09357 Assistance with Respiratory Ventilation, Less than 24 Consecutive Hours, Continuous Positive Airway Pressure (ICD-10-PCS; 2019-12-02)
PROC: 5A09357 Assistance with Respiratory Ventilation, Less than 24 Consecutive Hours, Continuous Positive Airway Pressure (ICD-10-PCS; 2019-12-03)
PROC: 5A09357 Assistance with Respiratory Ventilation, Less than 24 Consecutive Hours, Continuous Positive Airway Pressure (ICD-10-PCS; 2019-12-04)
PROC: 5A09357 Assistance with Respiratory Ventilation, Less than 24 Consecutive Hours, Continuous Positive Airway Pressure (ICD-10-PCS; 2019-12-05)
PROC: 30233N1 Transfusion of Nonautologous Red Blood Cells into Peripheral Vein, Percutaneous Approach (ICD-10-PCS; 2019-12-06)
PROC: 5A09357 Assistance with Respiratory Ventilation, Less than 24 Consecutive Hours, Continuous Positive Airway Pressure (ICD-10-PCS; 2019-12-06)
PROC: 5A09357 Assistance with Respiratory Ventilation, Less than 24 Consecutive Hours, Continuous Positive Airway Pressure (ICD-10-PCS; 2019-12-07)
PROC: 5A09357 Assistance with Respiratory Ventilation, Less than 24 Consecutive Hours, Continuous Positive Airway Pressure (ICD-10-PCS; 2019-12-08)
PROC: 5A09357 Assistance with Respiratory Ventilation, Less than 24 Consecutive Hours, Continuous Positive Airway Pressure (ICD-10-PCS; 2019-12-09)
PROC: 5A09357 Assistance with Respiratory Ventilation, Less than 24 Consecutive Hours, Continuous Positive Airway Pressure (ICD-10-PCS; 2019-12-12)
PROC: 5A09357 Assistance with Respiratory Ventilation, Less than 24 Consecutive Hours, Continuous Positive Airway Pressure (ICD-10-PCS; 2019-12-13)
PROC: 5A09357 Assistance with Respiratory Ventilation, Less than 24 Consecutive Hours, Continuous Positive Airway Pressure (ICD-10-PCS; 2019-12-15)
PROC: 5A09357 Assistance with Respiratory Ventilation, Less than 24 Consecutive Hours, Continuous Positive Airway Pressure (ICD-10-PCS; 2019-12-17)
PROC: 5A09357 Assistance with Respiratory Ventilation, Less than 24 Consecutive Hours, Continuous Positive Airway Pressure (ICD-10-PCS; 2019-12-18)
PROC: 5A09357 Assistance with Respiratory Ventilation, Less than 24 Consecutive Hours, Continuous Positive Airway Pressure (ICD-10-PCS; 2019-12-22)
PROC: 5A09357 Assistance with Respiratory Ventilation, Less than 24 Consecutive Hours, Continuous Positive Airway Pressure (ICD-10-PCS; 2019-12-24)
PROC: 5A09357 Assistance with Respiratory Ventilation, Less than 24 Consecutive Hours, Continuous Positive Airway Pressure (ICD-10-PCS; 2019-12-25)
PROC: 5A09357 Assistance with Respiratory Ventilation, Less than 24 Consecutive Hours, Continuous Positive Airway Pressure (ICD-10-PCS; 2019-12-26)
PROC: 5A09357 Assistance with Respiratory Ventilation, Less than 24 Consecutive Hours, Continuous Positive Airway Pressure (ICD-10-PCS; 2019-12-27)
DX: N17.9 Acute kidney failure, unspecified (principal); E86.0 Dehydration; B96.20 Unspecified Escherichia coli [E. coli] as the cause of diseases classified elsewhere; E03.9 Hypothyroidism, unspecified; E66.01 Morbid (severe) obesity due to excess calories; E87.5 Hyperkalemia; F10.20 Alcohol dependence, uncomplicated; F12.90 Cannabis use, unspecified, uncomplicated; G47.30 Sleep apnea, unspecified; G93.40 Encephalopathy, unspecified; I12.9 Hypertensive chronic kidney disease with stage 1 through stage 4 chronic kidney disease, or unspecified chronic kidney disease; I27.81 Cor pulmonale (chronic); I48.0 Paroxysmal atrial fibrillation; I48.92 Unspecified atrial flutter; N13.9 Obstructive and reflux uropathy, unspecified; E87.6 Hypokalemia; N18.9 Chronic kidney disease, unspecified; N39.0 Urinary tract infection, site not specified; Z68.42 Body mass index [BMI] 45.0-49.9, adult; Z20.828 Contact with and (suspected) exposure to other viral communicable diseases
CPT/HCPCS: 36415; 36430; 36558; 36573; 36600; 70551; 71045; 74018; 76700; 76775; 76937; 77001; 80048; 80053; 80061; 80162; 80305; 81001; 82140; 82150; 82550; 82570; 82607; 82746; 82803; 82948; 83036; 83540; 83550; 83690; 83735; 83880; 84100; 84133; 84156; 84300; 84439; 84443; 84540; 85018; 85025; 85027; 85610; 85651; 85730; 86038; 86430; 86618; 86803; 86870; 86885; 86900; 86901; 86922; 87077; 87081; 87088; 87186; 87207; 87340; 87635; 92508; 92616; 93005; 93308; 94640; 94660; 94760; 96374; 96375; 97110; 97112; 97116; 97161; 97530; 97535; 99152; 99153; 99285; A9270; C1750; C1769; C1894; C9113; G0378; J1644; J1815; J2060; J2250; J2270; J2310; J2916; J3010; J3411; J3490; J7030; J7040; J7060; P9016; P9047; Q4081